=== PATIENT | male | born 1945 | race Caucasian/White ===

== ENCOUNTER → 2019-04-29 | Outpatient (CLI) | payer MEDICARE, OTHER ==
--- NOTE | 2019-04-29 11:28 | Diagnostic Imaging Report ---
CLINICAL INDICATION: Patient with memory loss and confusion. EXAM: Axial CT scan of the brain performed without IV contrast. COMPARISON: None. FINDINGS: There is no evidence of acute cerebral infarct, intracranial hemorrhage, or gross mass effect. The brain parenchymal volume appears appropriate for patient's age. There are subtle patchy areas of low-attenuation white matter changes involving both cerebral hemispheres, likely representing chronic small vessel ischemic disease. There is normal cedillo-white matter distinction. There is no significant midline shift or herniation. There is no evidence of hydrocephalus. The basal cisterns are unremarkable. The skull, extracranial soft tissue, and orbits are unremarkable. There is consolidation involving the right maxillary sinus. There is bony thickening and sclerosis of the right maxillary sinus likely from chronic sinusitis changes. There is mild ethmoid sinus mucosal thickening. Temporal bones show no significant abnormality. IMPRESSION: 1: There is consolidation of the right maxillary sinus with chronic sinusitis bony changes. There is mild ethmoid sinus mucosal thickening. 2: Otherwise, unremarkable CT scan of the brain for age. Dictated by: Dictated on workstation # [id number]
== END ==
LOC: RAD 11:06
PROVIDERS: ATTEND Family Medicine
DX: J32.8 Other chronic sinusitis (principal); R41.0 Disorientation, unspecified
CPT/HCPCS: 70450

== ENCOUNTER → 2020-09-14 | Outpatient (CLI) | payer MEDICARE, OTHER ==
[2020-09-14 08:40] LABS: BILIRUBIN,URINE NEGATIVE (NEGATIVE); CLARITY,URINE CLEAR; COLOR,URINE YELLOW; GLUCOSE, URINE (UA) NEGATIVE (NEGATIVE); KETONES,URINE NEGATIVE (NEGATIVE); LEUKOCYTE ESTERASE ,URINE NEGATIVE (NEGATIVE); NITRITE,URINE NEGATIVE (NEGATIVE); PROTEIN,URINE NEGATIVE (NEGATIVE)
[2020-09-14 08:47] LABS: HEMOGLOBIN 13.3 g/dL (13.3-17.7); MEAN PLATELET VOLUME 10.8 fL (9.0-12.2); WHITE BLOOD COUNT 4.6 10^3/uL (4.3-11.0)
[2020-09-14 08:50] LABS: AMORPHOUS SEDIMENT,UR FEW AMOR URATES /LPF; BACTERIA,URINE TRACE /HPF; RBC,URINE RARE /HPF; WBC,URINE RARE /HPF
[2020-09-14 09:10] LABS: ALANINE AMINOTRANSFERASE 16 U/L (0-55); ALKALINE PHOSPHATASE 85 U/L (40-136); BILIRUBIN,TOTAL 0.6 MG/DL (0.1-1.0); BUN/CREATININE RATIO 13; CALCIUM 9.2 MG/DL (8.5-10.1); CARBON DIOXIDE 27 MMOL/L (21-32); CHLORIDE 105 MMOL/L (98-107); CHOLESTEROL 169 MG/DL (< 200); CREATININE SERUM 0.88 MG/DL (0.60-1.30); GFR ESTIMATED > 60; GLUCOSE 96 MG/DL (70-105); HDL CHOLESTEROL 37 MG/DL (40-60); POTASSIUM 3.9 MMOL/L (3.6-5.0); SODIUM 143 MMOL/L (135-145); TOTAL PROTEIN 7.1 GM/DL (6.4-8.2); TRIGLYCERIDES 83 MG/DL (<150); VLDL CHOLESTEROL 17 MG/DL (5-40)
== END ==
LOC: LAB 08:18
PROVIDERS: ATTEND Family Medicine
DX: I10 Essential (primary) hypertension (principal); R35.0 Frequency of micturition
CPT/HCPCS: 36415; 80053; 80061; 81000; 85027

== ENCOUNTER → 2020-09-20 | Outpatient (CLI) | payer MEDICARE, OTHER ==
--- NOTE | 2020-09-20 11:14 | Diagnostic Imaging Report ---
PROCEDURE: MRI lumbar spine. TECHNIQUE: Multiplanar, multisequence MRI of the lumbar spine was performed without contrast. INDICATION: Right and left leg pain and low back pain. No prior studies are available for comparison. Curvature and alignment of the lumbar spine is normal. There is significant compression fracture deformity involving the L1 vertebral body, which is near vertebral plana. This does show diffuse low signal on T1-weighted images with some mixed increased and decreased signal on the T2-weighted images. It is likely acute/subacute. Remaining lumbar vertebrae demonstrate fairly normal stature although the L2 vertebrae do show some mild superior and inferior endplate concavity which may represent old compressions. There is no retropulsion. There is generalized disc desiccation compatible with degenerative disc disease. Conus is unremarkable T12-L1 level. T12-L1: Central canal is widely patent. Neural foramina appears to be narrowed on the left. Right neural foramen is patent. L1-T2: There is ligament thickening and facet changes. Central canal is patent. There is moderate bilateral neural foraminal stenosis. L2-L3: Central canal is patent. There is some ligamentous thickening and facet changes. Bilateral lateral recesses are narrowed. There is moderate bilateral neural foraminal stenosis. L3-L4: Ligament thickening and facet changes with broad-based disc/osteophyte complex flattens the ventral thecal sac. There is moderate trefoil narrowing of the canal. There is significant bilateral lateral recess stenosis as well as significant bilateral neural foraminal stenosis. L4-L5: Broad-based disc/osteophyte complex flattens the ventral thecal sac. Central canal is patent but there is significant narrowing of the lateral recesses bilaterally. There is significant narrowing of bilateral neural foramina. L5-S1: Broad-based disc/osteophyte complex narrows lateral recesses. Central canal is patent. There is moderate bilateral neural foraminal stenosis. 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 IMPRESSION: 1. Findings consistent with acute compression fracture deformity L1 vertebral body which is near vertebral plana. No significant retropulsion is seen. There is a chronic deformity involving L2. 2. Multilevel lumbar spondylosis with multilevel central canal, lateral recess and neural foraminal stenosis. Dictated by: Dictated on workstation # [id number]
== END ==
LOC: RAD 10:15
PROVIDERS: ATTEND Family Medicine
DX: M48.56XA Collapsed vertebra, not elsewhere classified, lumbar region, initial encounter for fracture (principal); M47.816 Spondylosis without myelopathy or radiculopathy, lumbar region; M48.061 Spinal stenosis, lumbar region without neurogenic claudication
CPT/HCPCS: 72148

== ENCOUNTER → 2021-01-26 | Outpatient (CLI) | payer MEDICARE, OTHER | LOC: CARD 14:30 | PROVIDERS: ATTEND Family Medicine | DX: I35.8 Other nonrheumatic aortic valve disorders (principal) | CPT/HCPCS: 93306 ==

== ENCOUNTER 2021-10-11 09:21 | Inpatient (IN) | payer MEDICARE, OTHER ==
[~2021-10-11] VITALS: Ht 177 cm; Wt 88.9 kg
--- NOTE | 2021-10-11 09:41 | ED Cough/URI ---
General Chief Complaint: Fever-Adult/Adol Stated Complaint: FEVER Source: patient Exam Limitations: no limitations History of Present Illness Date Seen by Provider: Oct 11, 2021 Time Seen by Provider: 09:20 Initial Comments Patient to ER by EMS from home with chief complaint that he slid out of bed according to his . He did not strike his head or fall. He is not on blood thinners. He has a history of Alzheimer's and his found him to have a fever so she summonsed EMS because he was too weak to get back up in the bed. EMS remarks he had a tympanic membrane temperature of 103 degrees. His blood sugar is 107. He has a history of diabetes. He denies a cough but has loose rattly breath sounds. He denies dysuria pain nausea vomiting or shortness of air. He is largely noncontributory to medical history but does answer question s. Allergies and Home Medications Allergies Coded Allergies: No Known Drug Allergies (Unverified , 10/11/21) Patient Home Medication List Home Medication List Reviewed: Yes Review of Systems Review of Systems Constitutional: No chills, No diaphoresis EENTM: No ear discharge, No ear pain Respiratory: No cough, No phlegm, No short of breath Cardiovascular: No chest pain, No palpitations Gastrointestinal: No abdominal pain, No nausea, No vomiting Genitourinary: No discharge, No dysuria Musculoskeletal: No back pain, No joint pain All Other Systems Reviewed Negative Unless Noted: Yes Past Vsguvll-Pkgmtp-Uyjopy Hx Patient Social History Tobacco Use?: No Use of E-Cig and/or Vaping dev: No Physical Exam Vital Signs - First Documented 10/11/21 10/11/21 09:29 11:38 Temp 38.8 Pulse 109 Resp 24 B/P (MAP) 167/72 (103) Pulse Ox 97 O2 Delivery Room Air O2 Flow Rate 2.00 Capillary Refill : Height: '" Weight: lbs. oz. kg; BMI Method: General Appearance: WD/WN, mild distress Eyes: Bilateral Eye Normal Inspection, Bilateral Eye PERRL, Bilateral Eye EOMI HEENT: PERRL/EOMI, normal ENT inspection, TMs normal; No pharynx normal (Mildly dry oral mucosa) Neck: non-tender, full range of motion, supple, normal inspection Respiratory: no respiratory distress (Oxygen saturation 98% on room air.); No rales; rhonchi (Mild to moderate bilateral); No wheezing Cardiovascular: normal peripheral pulses, regular rate, rhythm Gastrointestinal: normal bowel sounds, non tender Extremities: normal inspection, normal capillary refill Neurologic/Psychiatric: alert, normal mood/affect, oriented x 3 Skin: normal color, warm/dry Focused Exam Lactate Level 10/11/21 09:52: Lactic Acid Level 1.41 Lactic Acid Level Laboratory Tests Test 10/11/21 09:52 Lactic Acid Level 1.41 MMOL/L (0.50-2.00) Progress/Results/Core Measures Suspected Sepsis SIRS Temperature: Pulse: Respiratory Rate: Laboratory Tests 10/11/21 09:52: White Blood Count 3.7L Blood Pressure / Mean: 10/11/21 09:52: Lactic Acid Level 1.41 Laboratory Tests 10/11/21 09:52: Creatinine 1.06, Platelet Count 80L, Total Bilirubin 0.9 10/11/21 11:00: INR Comment 1.1 Results/Orders Lab Results Laboratory Tests Test 10/11/21 09:52 10/11/21 11:00 10/11/21 11:35 10/11/21 11:50 Range/Units White Blood Count 3.7 L 4.3-11.0 10^3/uL Red Blood Count 3.75 L 4.30-5.52 10^6/uL Hemoglobin 12.5 L 13.3-17.7 g/dL Hematocrit 37 L 40-54 % Mean Corpuscular Volume 100 H 80-99 fL Mean Corpuscular Hemoglobin 33 25-34 pg Mean Corpuscular Hemoglobin Concent 34 32-36 g/dL Red Cell Distribution Width 13.6 10.0-14.5 % Platelet Count 80 L 130-400 10^3/uL Mean Platelet Volume 12.1 9.0-12.2 fL Immature Granulocyte % (Auto) 1 % Neutrophils (%) (Auto) 60 42-75 % Lymphocytes (%) (Auto) 9 L 12-44 % Monocytes (%) (Auto) 30 H 0-12 % Eosinophils (%) (Auto) 0 0-10 % Basophils (%) (Auto) 0 0-10 % Neutrophils # (Auto) 2.3 1.8-7.8 10^3/uL Lymphocytes # (Auto) 0.3 L 1.0-4.0 10^3/uL Monocytes # (Auto) 1.1 H 0.0-1.0 10^3/uL Eosinophils # (Auto) 0.0 0.0-0.3 10^3/uL Basophils # (Auto) 0.0 0.0-0.1 10^3/uL Immature Granulocyte # (Auto) 0.0 0.0-0.1 10^3/uL Neutrophils % (Manual) 36 % Lymphocytes % (Manual) 13 % Monocytes % (Manual) 29 % Band Neutrophils 22 % Clumped Platelets NONE Percent Immature Platelet Fraction 8.4 H 0.0-7.6 % Blood Morphology Comment NORMAL Sodium Level 139 135-145 MMOL/L Potassium Level 3.8 3.6-5.0 MMOL/L Chloride Level 106 98-107 MMOL/L Carbon Dioxide Level 21 21-32 MMOL/L Anion Gap 12 5-14 MMOL/L Blood Urea Nitrogen 23 H 7-18 MG/DL Creatinine 1.06 0.60-1.30 MG/DL Estimat Glomerular Filtration Rate 74 BUN/Creatinine Ratio 22 Glucose Level 98 70-105 MG/DL Lactic Acid Level 1.41 0.50-2.00 MMOL/L Calcium Level 8.5 8.5-10.1 MG/DL Corrected Calcium 8.7 8.5-10.1 MG/DL Total Bilirubin 0.9 0.1-1.0 MG/DL Aspartate Amino Transf (AST/SGOT) 42 H 5-34 U/L Alanine Aminotransferase (ALT/SGPT) 23 0-55 U/L Alkaline Phosphatase 49 40-136 U/L B-Type Natriuretic Peptide 19.1 <100.0 PG/ML Total Protein 6.9 6.4-8.2 GM/DL Albumin 3.7 3.2-4.5 GM/DL Influenza Type A (RT-PCR) Detected H Not Detecte Influenza Type B (RT-PCR) Not Detected Not Detecte SARS-CoV-2 RNA (RT-PCR) Not Detected Not Detecte Prothrombin Time 15.0 H 12.2-14.7 SEC INR Comment 1.1 0.8-1.4 Activated Partial Thromboplast Time 40 H 24-35 SEC Urine Color YELLOW Urine Clarity CLEAR Urine pH 6.0 5-9 Urine Specific [place] >=1.030 1.016-1.022 Urine Protein 1+ H NEGATIVE Urine Glucose (UA) NEGATIVE NEGATIVE Urine Ketones 1+ H NEGATIVE Urine Nitrite NEGATIVE NEGATIVE Urine Bilirubin NEGATIVE NEGATIVE Urine Urobilinogen 0.2 < = 1.0 MG/DL Urine Leukocyte Esterase NEGATIVE NEGATIVE Urine RBC (Auto) 3+ H NEGATIVE Urine RBC 2-5 H /HPF Urine WBC 0-2 /HPF Urine Crystals PRESENT H /LPF Urine Amorphous Sediment LARGE FADI URATES H /LPF Urine Bacteria NEGATIVE /HPF Urine Casts NONE /LPF Urine Mucus SMALL H /LPF Urine Culture Indicated NO Blood Gas Puncture Site LEFT RADIAL Blood Gas Patient Temperature 36.8 Arterial Blood pH 7.40 7.37-7.43 Arterial Blood Partial Pressure CO2 36 35-45 MMHG Arterial Blood Partial Pressure O2 61 L 79-93 MMHG Arterial Blood HCO3 22 L 23-27 MMOL/L Arterial Blood Total CO2 22.7 21.0-31.0 MMOL/L Arterial Blood Oxygen Saturation 92 L 94-100 % Arterial Blood Base Excess -2.5 -2.5-2.5 MMOL/L Devin Test POSITIVE Blood Gas Ventilator Setting NO Blood Gas Inspired Oxygen N/A My Orders Orders - LESLIE SABA Ed Iv/Invasive Line Start (10/11/21 09:33) Ns Iv 1000 Ml (Sodium Chloride 0.9%) (10/11/21 09:45) Cbc With Automated Diff (10/11/21:33) Comprehensive Metabolic Panel (10/11/21:33) Blood Culture (10/11/21:33) Sputum Culture (10/11/21:33) Urinalysis (10/11/21:33) Urine Culture (10/11/21:33) Protime With Inr (10/11/21:33) Partial Thromboplastin Time (10/11/21:33) Chest 1 View, Ap/Pa Only (10/11/21:33) Acetaminophen Tablet (Tylenol Tablet) (10/11/21 09:45) Ed Iv/Invasive Line Start (10/11/21:33) Ed Iv/Invasive Line Start (10/11/21:33) Vital Signs Adult Sepsis Patie Q15M (10/11/21 09:33) O2 (10/11/21:33) Remove Rings In Anticipation O (10/11/21:33) Lactic Acid Analyzer (2/17/22 09:33) Influenza A And B By Pcr (10/11/21 09:33) Ns Iv 1000 Ml (Sodium Chloride 0.9%) (10/11/21 09:45) Cefepime Injection (Maxipime Injection) (10/11/21 09:45) Vancomycin Injection (Vancomycin Injecti (10/11/21 09:45) Covid 19 Inhouse Test (10/11/21 09:33) Manual Differential (10/11/21 09:52) Vancomycin Injection (Vancomycin Injecti (10/11/21 10:30) Bnp Lety (10/11/21 11:04) Ed Iv/Invasive Line Start (10/11/21 11:04) Ns Iv 1000 Ml (Sodium Chloride 0.9%) (10/11/21 11:15) Arterial Blood Gas (10/11/21 11:53) Medications Given in ED Current Medications Medications Dose Ordered Sig/Marita Route Start Time Stop Time Status Last Admin Dose Admin Acetaminophen 1,000 mg ONCE PRN PO 10/11/21 09:45 10/11/21 09:52 DC 10/11/21 09:52 1,000 MG Cefepime HCl 1000 mg/Sodium Chloride 50 ml @ 100 mls/hr ONCE ONCE IV 10/11/21 09:45 10/11/21 10:14 DC 10/11/21 10:50 100 MLS/HR Vital Signs/I&O 10/11/21 10/11/21 10/11/21 10/11/21 09:29 09:29 09:52 11:38 Temp 38.8 38.8 Pulse 109 Resp 24 B/P (MAP) 167/72 (103) Pulse Ox 97 97 O2 Delivery Room Air Room Air Nasal Cannula O2 Flow Rate 2.00 Capillary Refill : Progress Note #1: Time: 09:41 Progress Note Septic work-up, 2 L is greater than 20 mL/kg based on an estimated body weight of 180 pounds. Cefepime and vancomycin. Pneumonia versus UTI versus?. Covid and influenza swab Progress Note #2: Time: 11:18 Progress Note Influenza A. Oxygen 2 L for hypoxia initiated. Patient has soft blood pressures with systolics in the upper 80s low 90s so 3rd L for 30 mL/kg were initiated. We did clarify CODE STATUS is a full code and the is okay with intubation if indicated. Diagnostic Imaging Diagonstic Imaging: Xray Plain Films/CT/US/NM/MRI: chest Comments [facility] [place], [place] NAME: JEREMIAS BECK [facility] REC#: [id number] PT STATUS: REG ER : 1945 PHYSICIAN: LESLIE SABA MD ADMIT DATE: 10/11/21/ER Draft Date of Exam:10/11/21 CHEST 1 VIEW, AP/PA ONLY INDICATION: Cough FINDINGS: The lungs are clear. There is no failure, effusion or pneumothorax. IMPRESSION: No acute appearing abnormality. Dictated on workstation # [id number] Dict: 10/11/21 1016 Trans: 10/11/21 1017 [facility] [id number] Interpreted by: HOLLIE VICTOR Electronically signed by: Reviewed: Reviewed by Me Departure Communication (Admissions) Time/Spoke to Admitting Phy: 11:[address] Chaney and he agrees to admit the patient to stepdown. Impression Primary Impression: Influenza A Additional Impression: Acute respiratory failure with hypoxemia Disposition: ADMITTED INPATIENT Condition: Stable Admissions Decision to Admit Reason: Admit from ER (General) Decision to Admit/Date: Oct 11, 2021 Time/Decision to Admit Time: 11:19 Departure-Patient Inst. Referrals: YUSUF DISLA DO (PCP/Family) Primary Care Physician LESLIE SABA Oct 11, 2021 09:41
[2021-10-11] MEDS ORDERED: VANCOMYCIN INJECTION 1,750 MG in NS IV 500 ML 500 ML IV ONE (09:45)
[2021-10-11] MEDS ORDERED: ACETAMINOPHEN 500 MG TAB (TYLENOL) PO PRN (09:45)
[2021-10-11] MEDS ORDERED: NS IV 1000 ML 1,000 ML IV SCH ×4 (09:45→13:30)
[2021-10-11] MEDS ORDERED: CEFEPIME INJECTION 1,000 MG in NS (IVPB) 50 ML IV ONE (09:45)
[2021-10-11 10:07] LABS: BASOPHILS % (AUTO) 0 % (0-10); EOSINOPHILS % (AUTO) 0 % (0-10); MEAN CORPUSCULAR VOLUME 100 fL (80-99)
[2021-10-11 10:08] LABS: HEMATOCRIT 37 % (40-54); HEMOGLOBIN 12.5 g/dL (13.3-17.7); LYMPHOCYTES # (AUTO) 0.3 10^3/uL (1.0-4.0); LYMPHOCYTES % (AUTO) 9 % (12-44); MEAN CORPUSCULAR HEMOGLOBIN 33 pg (25-34); MEAN CORPUSCULAR HGB CONC 34 g/dL (32-36); MEAN PLATELET VOLUME 12.1 fL (9.0-12.2); MONOCYTES # (AUTO) 1.1 10^3/uL (0.0-1.0); MONOCYTES % (AUTO) 30 % (0-12); NEUTROPHILS # (AUTO) 2.3 10^3/uL (1.8-7.8); NEUTROPHILS % (AUTO) 60 % (42-75); PLATELET COUNT 80 10^3/uL (130-400); WHITE BLOOD COUNT 3.7 10^3/uL (4.3-11.0)
--- NOTE | 2021-10-11 10:17 | Diagnostic Imaging Report ---
INDICATION: Cough FINDINGS: The lungs are clear. There is no failure, effusion or pneumothorax. IMPRESSION: No acute appearing abnormality. Dictated by: Dictated on workstation # [id number]
[2021-10-11 10:27] LABS: ALBUMIN 3.7 GM/DL (3.2-4.5); POTASSIUM 3.8 MMOL/L (3.6-5.0)
[2021-10-11 10:29] LABS: CALCIUM 8.5 MG/DL (8.5-10.1)
[2021-10-11 10:30] LABS: TOTAL PROTEIN 6.9 GM/DL (6.4-8.2)
[2021-10-11] MEDS ORDERED: VANCOMYCIN INJECTION 1,750 MG in NS IV 500 ML 500 ML IV NR (10:30)
[2021-10-11 10:32] LABS: BILIRUBIN,TOTAL 0.9 MG/DL (0.1-1.0)
[2021-10-11 10:34] LABS: CREATININE SERUM 1.06 MG/DL (0.60-1.30)
[2021-10-11 10:49] LABS: BAND NEUTROPHILS 22 %; LYMPHOCYTES % (MANUAL) 13 %; MONOCYTES % (MANUAL) 29 %; NEUTROPHILS % (MANUAL) 36 %; RBC MORPH NORMAL
[2021-10-11 11:22] LABS: INR 1.1 (0.8-1.4)
[2021-10-11 11:44] LABS: BILIRUBIN,URINE NEGATIVE (NEGATIVE); CLARITY,URINE CLEAR; COLOR,URINE YELLOW; GLUCOSE, URINE (UA) NEGATIVE (NEGATIVE); KETONES,URINE 1+ (NEGATIVE); LEUKOCYTE ESTERASE ,URINE NEGATIVE (NEGATIVE); NITRITE,URINE NEGATIVE (NEGATIVE); PROTEIN,URINE 1+ (NEGATIVE)
[2021-10-11 12:01] LABS: AMORPHOUS SEDIMENT,UR LARGE AMOR URATES /LPF; BACTERIA,URINE NEGATIVE /HPF; WBC,URINE 0-2 /HPF
[2021-10-11 12:03] LABS: ABG BASE EXCESS -2.5 MMOL/L (-2.5-2.5); ABG OXYGEN SATURATION 92 % (94-100); ABG PCO2 36 MMHG (35-45); ABG PO2 61 MMHG (79-93); ABG TCO2 22.7 MMOL/L (21.0-31.0)
[2021-10-11 12:07] LABS: ALLENS TEST POSITIVE
[2021-10-11 12:08] LABS: PATIENT TEMP 36.8; VENTILATOR NO
[2021-10-11] MEDS ORDERED: LACTATED RINGERS 1,000 ML IV ONE (13:10)
[2021-10-11] MEDS ORDERED: VASOPRESSIN INJECTION 20 UNIT in NS (IVPB) 100 ML IV SCH (13:30)
[2021-10-11] MEDS ORDERED: NOREPINEPHRINE 8 MG/250 ML 250 ML IV SCH (13:30)
[2021-10-11] MEDS ORDERED: ACETAMINOPHEN 325 MG TABLET PO PRN (13:30)
[2021-10-11] MEDS ORDERED: EPINEPHrine 1 MG INJECTION 4 MG in NS (IVPB) 248 ML IV SCH (13:30)
[2021-10-11] MEDS ORDERED: ONDANSETRON 4 MG/2 ML (SDV) Z0FRAN IV PRN (13:30)
[2021-10-11] MEDS ORDERED: LACTATED RINGERS 1,000 ML IV SCH (13:30)
[2021-10-11 13:32] VITALS: BP 136/72
[2021-10-11] MEDS ORDERED: NS IV ONE (13:45)
[2021-10-11] MEDS ORDERED: DONE10TA41 PO (13:49)
[2021-10-11] MEDS ORDERED: LISI20TA26 PO (13:49)
[2021-10-11] MEDS ORDERED: MELO15TA39 PO (13:49)
[2021-10-11] MEDS ORDERED: OSEL75CA15 PO (13:49)
[2021-10-11] MEDS ORDERED: AMLO-251 PO (13:50)
[2021-10-11] MEDS ORDERED: LORA10TA7 PO (13:50)
[2021-10-11] MEDS ORDERED: MEMA10TA57 PO (13:51)
[2021-10-11 14:57] VITALS: BP 136/72
[2021-10-11] MEDS ORDERED: VANCOMYCIN INJECTION 0.1 MG in NS (IVPB) 250 ML IV SCH (15:00)
[2021-10-11] MEDS ORDERED: RT-ALBUTEROL SULF 2.5 MG/3 ML PRE-MIX VIAL INH PRN (15:15)
[2021-10-11] MEDS ORDERED: inSUlin ASPART (NovoLOG) 1 UNIT/0.01 ML (CHARGE PER UNIT) SC SCH (16:00)
[2021-10-11] MEDS: OSELTAMIVIR 75 MG (TAMIFLU) CAPSULE PO SCH ×2 (16:08→20:52)
[2021-10-11] MEDS: CEFEPIME INJECTION 1,000 MG in NS (IVPB) 50 ML IV SCH ×2 (16:09→20:52)
[2021-10-11] MEDS ORDERED: MELATONIN 3 MG TABLET PO PRN (16:15)
[2021-10-11] MEDS ORDERED: ANTACID SUSP 30 ML UDC (MYLANTA) PO PRN (16:15)
[2021-10-11] MEDS ORDERED: polyethylene glycoL POWDER 17 GM (MIRALAX) PACK PO PRN (16:15)
[2021-10-11] MEDS ORDERED: hydrALAZINE (APESOLINE) 20 MG/ML VIAL IV PRN (16:15)
[2021-10-11 16:33] VITALS: BP 128/57
[2021-10-11] MEDS: ENOXAPARIN 40 MG/0.4 ML (LOVENOX) SYR SC SCH (17:28)
[2021-10-11] MEDS: ACETAMINOPHEN 325 MG TABLET PO PRN (17:29)
[2021-10-11] MEDS: NICOTINE 21 MG (NICODERM) PATCH TD SCH (17:45)
[2021-10-11] MEDS: NS IV 1000 ML 1,000 ML IV SCH (18:33)
[2021-10-11 20:00] VITALS: BP 124/60
[2021-10-11] MEDS: DOCUSATE SODIUM 100 MG (COLACE) CAP PO SCH (20:52)
[2021-10-11] MEDS: MEMANTINE 10 MG (NAMENDA) TABLET PO SCH (20:52)
[2021-10-11] MEDS: DONEPEZIL 10 MG (ARICEPT) TAB PO SCH (20:52)
[2021-10-11] MEDS: VANCOMYCIN 1250 MG/NS 250 ML IVPB IV SCH ×2 (22:08)
[2021-10-12] VITALS (9 sets, daily range): BP systolic 118–147; BP diastolic 49–73
[2021-10-12] MEDS: CEFEPIME INJECTION 1,000 MG in NS (IVPB) 50 ML IV SCH ×4 (02:45→20:26)
[2021-10-12] MEDS: ACETAMINOPHEN 325 MG TABLET PO PRN ×2 (02:46→20:24)
[2021-10-12 05:14] LABS: BASOPHILS % (AUTO) 0 % (0-10); EOSINOPHILS % (AUTO) 0 % (0-10); HEMATOCRIT 33 % (40-54); HEMOGLOBIN 10.6 g/dL (13.3-17.7); LYMPHOCYTES # (AUTO) 0.8 10^3/uL (1.0-4.0); LYMPHOCYTES % (AUTO) 12 % (12-44); MEAN CORPUSCULAR HEMOGLOBIN 33 pg (25-34); MEAN CORPUSCULAR HGB CONC 33 g/dL (32-36); MEAN CORPUSCULAR VOLUME 101 fL (80-99); MEAN PLATELET VOLUME 11.9 fL (9.0-12.2); MONOCYTES # (AUTO) 1.1 10^3/uL (0.0-1.0); MONOCYTES % (AUTO) 17 % (0-12); NEUTROPHILS # (AUTO) 4.5 10^3/uL (1.8-7.8); NEUTROPHILS % (AUTO) 69 % (42-75); PLATELET COUNT 65 10^3/uL (130-400); WHITE BLOOD COUNT 6.5 10^3/uL (4.3-11.0)
[2021-10-12 05:23] LABS: POTASSIUM 3.4 MMOL/L (3.6-5.0)
[2021-10-12 05:24] LABS: BAND NEUTROPHILS 16 %; CALCIUM 7.7 MG/DL (8.5-10.1); LYMPHOCYTES % (MANUAL) 7 %; MONOCYTES % (MANUAL) 10 %; NEUTROPHILS % (MANUAL) 67 %; RBC MORPH NORMAL
[2021-10-12 05:28] LABS: CREATININE SERUM 0.73 MG/DL (0.60-1.30)
[2021-10-12] MEDS: NS IV 1000 ML 1,000 ML IV SCH ×3 (06:03→20:52)
--- NOTE | 2021-10-12 07:20 | Diagnostic Imaging Report ---
INDICATION: Sepsis COMPARISON: 10/11/2021 FINDINGS: Single view the chest demonstrates cardiac enlargement with stable central vascular congestion. There is new dependent atelectasis. There is no pneumothorax or large effusion. IMPRESSION: 1. Cardiac enlargement with stable central vascular congestion. 2. New basilar atelectasis. Dictated by: Dictated on workstation # [id number]
[2021-10-12] MEDS: NICOTINE 21 MG (NICODERM) PATCH TD SCH (07:59)
[2021-10-12] MEDS: lisINopril 20 MG (PRINIVIL) TABLET PO SCH (08:00)
[2021-10-12] MEDS: MEMANTINE 10 MG (NAMENDA) TABLET PO SCH ×2 (08:00→20:25)
[2021-10-12] MEDS: amLODIPine 10 MG (NORVASC) TAB PO SCH (08:00)
[2021-10-12] MEDS: DOCUSATE SODIUM 100 MG (COLACE) CAP PO SCH ×2 (08:00→20:24)
[2021-10-12] MEDS: LORATADINE (CLARITIN) 10 MG TAB PO SCH (08:00)
[2021-10-12] MEDS: OSELTAMIVIR 75 MG (TAMIFLU) CAPSULE PO SCH ×2 (08:01→20:25)
[2021-10-12] MEDS: VANCOMYCIN 1250 MG/NS 250 ML IVPB IV SCH ×4 (11:12→23:56)
--- NOTE | 2021-10-12 11:12 | Occupational Therapy Eval ---
OT Evaluation-General/PLF Medical Diagnosis Admission Date Oct 11, 2021 at 11:20 Medical Diagnosis: Influenza A Onset Date: Oct 11, 2021 Therapy Diagnosis Therapy Diagnosis: decreased ADL status, confusion Precautions Precautions/Isolations: Droplet Isolation, Fall Prevention Referral Physician: Kade Ontiveros Reason: Evaluation/Treatment Medical History Current History EMS from home c/o pt slid out of bed, fever and cough Social History Home: Single Level Current Living Status: Spouse ADL-Prior Level of Function SCALE: Activities may be completed with or without assistive devices. 1-Fnboukjptq-bcmqffn completes the activity by him/herself with no assistance from a helper. 5-Set-up or Clean-up Assistance-helper sets up or cleans up; patient completes activity. Hankamer assists only prior to or following the activity. 4-Supervision or Touching Assistance-helper provides verbal cues and/or touching/steadying and/or contact guard assistance as patient completes activity. Assistance may be provided throughout the activity or intermittently. 3-Partial/Moderate Assistance-helper does LESS THAN HALF the effort. Hankamer lifts, holds or supports trunk or limbs, but provides less than half the effort. 2-Substantial/Maximal Assistance-helper does MORE THAN HALF the effort. Hankamer lifts or holds trunk or limbs and provides more than half the effort. 4-Lbyiqmfab-lqnwti does ALL the effort. Patient does none of the effort to complete the activity. Or, the assistance of 2 or more helpers is required for the patient to complete the activity. If activity was not attempted, code reason: 7-Patient Refused. 9-Not Applicable-not attempted and the patient did not perform the activity before the current illness, exacerbation or injury. 10-Not Attempted due to Environmental Limitations-(lack of equipment, weather restraints, etc.). 88-Not Attempted due to Medical Conditions or Safety Concerns. ADL PLOF Comments Pt reports IND with ADLs and functional mobility at PLOF, no AD/AE Self Care: Independent Functional Cognition: Independent OT Current Status Subjective Pt in bed, indicates he is seeing dogs in his room. His indicates pt has also been seeing horses Mental Status/Objective Patient Orientation: Person, Confused Attachments: IV, Telemetry Current Hand Dominance: Right Upper Extremity ROM WFL, BUE shoulder flexion to approx 160 degrees Upper Extremity Strength grossly 4/5 ADL-Treatment On/Off Footwear (QC): 4 (SBA, pt able to doff/don gripper socks.) Other Treatments Pt in bed, agreeable to OT tx. Pt and provide information about PLOF and home set up, and pt participates in UE screen. Pt transferred supine to sit EOB, CGA with cues for sequencing. Pt able to doff/don gripper socks, SBA. Pt stood from EOB, unsteady, sitting back on EOB abruptly. OT provided FRAME TENDER, pt then able to stand with FRAME TENDER. Pt took a couple steps to the R towards HOB, cues required for sequencing. Pt sat EOB, then transferred supine with SBA. Post tx, pt in bed, call light in reach and all needs met. Education OT Patient Education: Correct positioning, Energy conservation, Modified ADL techniques, Progress toward Goal/Update tx plan, Purpose of tx/functional activities Teaching Recipient: Patient Teaching Methods: Discussion Response to Teaching: Verbalize Understanding OT Auto Glass Technician Goals Auto Glass Technician Goals Time Frame: Oct 19, 2021 Eating (QC): 6 Oral Hygiene (QC): 6 Toileting Hygiene (QC): 6 Shower/Bathe Self (QC): 6 Upper Body Dressing (QC): 6 Lower Body Dressing (QC): 6 On/Off Footwear (QC): 6 Additional Goals: 1-Demonstrate ADL Tasks, 2-Verbalize Understanding, 3- ImproveStrength/Moy 1=Demonstrate adherence to instructed precautions during ADL tasks. 2=Patient will verbalize/demonstrate understanding of assistive devices/modifications for ADL. 3=Patient will improve strength/tolerance for activity to enable patient to perform ADL's. OT Education/Plan Problem List/Assessment Assessment: Decreased Activ Tolerance, Decreased Safety Aware, Decreased UE St rength, Impaired Cognition, Impaired Funct Balance, Impaired I ADL's, Impaired Self-Care Skills Discharge Recommendations Plan/Recommendations: Continue POC Treatment Plan/Plan of Care Patient would benefit from OT for education, treatment and training to promote independence in ADL's, mobility, safety and/or upper extremity function for ADL's. Plan of Care: ADL Retraining, Functional Mobility, UE Funct Exercise/Act Treatment Duration: Oct 19, 2021 Frequency: 3 times per week (3-5 times per week) Estimated Hrs Per Day: .25 hour per day Agreement: Yes Rehab Potential: Good Time/GCodes Start Time: 10:25 Stop Time: 10:38 Total Time Billed (hr/min): 13 Billed Treatment Time 1, ARIANA MICHAELS OT Oct 12, 2021 11:12
--- NOTE | 2021-10-12 11:28 | Physical Therapy Evaluation ---
PT Evaluation-General Medical Diagnosis Admission Date Oct 11, 2021 at 11:20 Medical Diagnosis: Influenza A Onset Date: Oct 11, 2021 Therapy Diagnosis Therapy Diagnosis: Generalized weakness, gait deficit Precautions Precautions/Isolations: Droplet Isolation, Fall Prevention Referral Physician: Kade Reason for Referral: Evaluation/Treatment Medical History Reviewed History: Yes Social History Home: Single Level Current Living Status: Spouse Entry Into Home: Stairs With Railing PT Steps Into Home: 5 Prior Prior Level of Function SCALE: Activities may be completed with or without assistive devices. 6-Mqtrrcmasn-tewgolj completes the activity by him/herself with no assistance from a helper. 5-Set-up or Clean-up Assistance-helper sets up or cleans up; patient completes activity. [place] assists only prior to or following the activity. 4-Supervision or Touching Assistance-helper provides verbal cues and/or touching/steadying and/or contact guard assistance as patient completes activity. Assistance may be provided throughout the activity or intermittently. 3-Partial/Moderate Assistance-helper does LESS THAN HALF the effort. [place] lifts, holds or supports trunk or limbs, but provides less than half the effort. 2-Substantial/Maximal Assistance-helper does MORE THAN HALF the effort. [place] lifts or holds trunk or limbs and provides more than half the effort. 0-Tghemovus-catmhb does ALL the effort. Patient does none of the effort to complete the activity. Or, the assistance of 2 or more helpers is required for the patient to complete the activity. If activity was not attempted, code reason: 7-Patient Refused. 9-Not Applicable-not attempted and the patient did not perform the activity before the current illness, exacerbation or injury. 10-Not Attempted due to Environmental Limitations-(lack of equipment, weather restraints, etc.). 88-Not Attempted due to Medical Conditions or Safety Concerns. Bed Mobility: 6 Transfers (B,C,W/C): 6 Gait: 6 Stairs: 6 Indoor Mobility (Ambulation): Independent Stairs: Independent Prior Devices Use: None PT Evaluation-Current Subjective Patient lying supine in bed upon PT arrival, agreeable to treatment. Rates pain at 0/10. Patient is moderately confused and is only able to remember his name. Objective Patient Orientation: Person Attachments: IV ROM/Strength ROM Lower Extremities WFLs Strength Lower Extremities Patient demonstrates >3+/5 strength in bilateral LEs, however unable to follow commands to assess accurately. Sensory Vision: Functional Hearing: Functional Hand Dominance: Right Sensation Lower Extremities Unable to assess sensation to light touch accurately as patient says "yes" to being touched even when tactile stimuli not applied. Transfers Roll Left to Right (QC): 3 Sit to Lying (QC): 3 Lying to Sitting/Side of Bed(Q: 3 Sit to Stand (QC): 3 Gait Does the Patient Walk?: Yes Mode of Locomotion: Walk Anticipated Mode of Locomotion: Walk Walk 10 feet (QC): 3 Walk 50 ft with 2 Turns(QC): 3 Distance: 100 Gait Assistive Device: FWW Balance Sitting Static: Fair Sitting Dynamic: Fair Standing Static: Poor Standing Dynamic: Poor Assessment/Needs Patient demonstrates moderate difficulty following commands and requires not only multiple verbal attempts, but multiple tactile cues as well. He appears to demonstrate good LE strength, however due to current cognition, he is unable to perform MMT. Patient performs all bed mobility and transfers with min/mod A. Patient demonstrates minimal impulsive movements especially when attempting to stand up from the bed. Patient ambulates 100 feet with FWW, with min A for safety, control of FWW and balance. Patient ambulates with right lateral movement ~25% of the time. FWW assists with balance, but also causes difficulty as he demonstrates the inability to maneuver the FWW at times. Patient returned to bed post treatment with all needs met, nursing notified, call light in hand, and in the room. Rehab Potential: Fair Equipment Needs Unsure at this time, however FWW if balance does not improve. PT Finishing Technician Goals Finishing Technician Goals PT Finishing Technician Goals Time Frame: Oct 26, 2021 Roll Left & Right (QC): 6 Sit to Lying (QC): 6 Lying-Sitting on Side/Bed(QC): 6 Sit to Stand (QC): 6 Chair/Jdv-pz-Adoex Xfer(QC): 6 Toilet Transfer (QC): 6 Car Transfer (QC): 6 Does the Patient Walk: Yes Walk 10 feet (QC): 5 Walk 50ft with 2 Turns (QC): 5 Walk 150 ft (QC): 5 1 Step (curb) (QC): 4 4 Steps (QC): 4 12 Steps (QC): 4 PT Plan Problem List Problem List: Activity Tolerance, Functional Strength, Safety, Balance, Gait, Transfer, Bed Mobility, ROM Treatment/Plan Treatment Plan: Continue Plan of Care Treatment Plan: Bed Mobility, Education, Functional Activity Moy, Functional Strength, Group Therapy, Gait, Safety, Therapeutic Exercise, Transfers Treatment Duration: Nov 17, 2021 Frequency: 6 times per week Estimated Hrs Per Day: .25 hour per day Safety Risks/Education Patient Education: Gait Training Teaching Recipient: Patient, Family Teaching Methods: Demonstration, Discussion Response to Teaching: Reinforcement Needed Discharge Recommendations Target Placement Post acute placement recommended if improvement does not occur with cognition Time/GCodes Time In: 1041 Time Out: 1110 Total Billed Treatment Time: 29 Total Billed Treatment Visit, Lindsay ASHFORD JOHN A PT Oct 12, 2021 11:28
--- NOTE | 2021-10-12 16:27 | History & Physical-Hospitalist ---
History of Present Illness HPI/Chief Complaint Andrei Jonas is a 76 year old male with PMH dementia, HTN, who presented with weakness. She reports that he was doing well just a couple days ago. He started having fevers. He tried to get out of bed but slid down to the floor. She had to call EMS at that time. He reports shortness of breath and cough. He denies chest pain. He denies nausea, vomiting, diarrhea, and abdominal pain. Source: patient, family Exam Limitations: no limitations Date Seen 10/12/21 Time Seen by a Provider: 09:30 Attending Physician Brock Flaherty MD PCP Stevie Collado DO Referring Physician Date of Admission Oct 11, 2021 at 11:20 Home Medications & Allergies Home Medications Reviewed patient Home Medication Reconciliation performed by pharmacy medication reconciliations retail maintenance technician and/or nursing. Patients Allergies have been reviewed. Allergies Allergies Coded Allergies No Known Drug Allergies (Unverified10/11/21) Past Uiqgasi-Bstmtz-Yaqxjc Hx Patient Social History Tobacco Use?: No Smokeless type used: Chew Use of E-Cig and/or Vaping dev: No Substance use?: No Alcohol Use?: Yes Alcohol Frequency: Once in a while Pt feels they are or have been: No Immunizations Up To Date Date of Influenza Vaccine: Jun 10, 2021 First/Initial COVID19 Vaccinat: MAY 2021 Second COVID19 Vaccination Doe: JUNE 2021 Tetanus Booster (TDap): Unknown Current Status Advance Directives: No Communicates: Verbally Primary Language: Tunisian Preferred Spoken Language: Tunisian Is interpretation needed?: Unable to obtain Sensory deficits: Hearing impairment Implanted or Applied Medical D: None Past Medical History Hypertension Dementia Family Medical History No Pertinent Family Hx Review of Systems Constitutional: fever, malaise, weakness EENTM: no symptoms reported Respiratory: cough, short of breath Cardiovascular: no symptoms reported Gastrointestinal: no symptoms reported Genitourinary: no symptoms reported Musculoskeletal: no symptoms reported Skin: no symptoms reported Psychiatric/Neurological: No Symptoms Reported Physical Exam Physical Exam Vital Signs Vital Signs - First Documented 10/11/21 10/11/21 10/11/21 09:29 11:38 14:57 Temp 38.8 Pulse 109 Resp 24 B/P (MAP) 167/72 (103) Pulse Ox 97 O2 Delivery Room Air O2 Flow Rate 2.00 FiO2 21 Capillary Refill : Less Than 3 Seconds Height, Weight, BMI Height: '" Weight: lbs. oz. kg; 28.37 BMI Method: General Appearance: No Apparent Distress, WD/WN HEENT: PERRL/EOMI, Pharynx Normal Neck: Normal Inspection, Supple Respiratory: Lungs Clear, No Respiratory Distress Cardiovascular: Regular Rate, Rhythm, No Edema, No Murmur Gastrointestinal: Normal Bowel Sounds, Non Tender, Soft Extremity: Normal Inspection, No Pedal Edema Neurologic/Psychiatric: Alert, Normal Mood/Affect Skin: Normal Color, Warm/Dry Results Results/Procedures Labs Laboratory Tests 10/11/21 09:52 10/12/21 05:00 Patient resulted labs reviewed. Imaging: Reviewed Imaging Report Assessment/Plan Admission Diagnosis Influenza A Admission Status: Inpatient Order (span 2 midnights) Reason for Inpatient Admission: Sepsis Assessment and Plan Sepsis Influenza A Pneumonia Flu A positive SIRS+ with fever, leukopenia with bandemia, and tachycardia CXR with bibasilar infiltrate Started on Vanc and Cefepime UA negative Blood cultures with no growth Not requiring supplemental oxygen Acute kidney injury IV fluids Pancytopenia Likely due to viral illness Monitor Dementia Delirium Continue home meds Sitter at bedside Reorient as needed Avoid delirium triggers HTN Continue home meds DVT prophylaxis: Lovenox Diagnosis/Problems Diagnosis/Problems (1) Sepsis Status: Acute (2) Influenza A Status: Acute (3) PNA (pneumonia) Status: Acute (4) Dementia Status: Chronic (5) Delirium Status: Acute (6) DHRUV (acute kidney injury) Status: Acute (7) Pancytopenia Status: Acute (8) HTN (hypertension) Status: Chronic BROCK FLAHERTY MD Oct 12, 2021 16:27
[2021-10-12] MEDS: ENOXAPARIN 40 MG/0.4 ML (LOVENOX) SYR SC SCH (18:26)
[2021-10-12] MEDS: DONEPEZIL 10 MG (ARICEPT) TAB PO SCH (20:23)
[2021-10-12] MEDS ORDERED: TROUGH ORDER-PHARMACY XX NR (22:00)
[2021-10-13] MEDS: CEFEPIME INJECTION 1,000 MG in NS (IVPB) 50 ML IV SCH ×2 (02:47→11:25)
[2021-10-13 03:46] VITALS: BP 158/72
[2021-10-13 06:08] LABS: BASOPHILS % (AUTO) 0 % (0-10); EOSINOPHILS % (AUTO) 1 % (0-10); HEMATOCRIT 36 % (40-54); HEMOGLOBIN 11.9 g/dL (13.3-17.7); LYMPHOCYTES # (AUTO) 0.9 10^3/uL (1.0-4.0); LYMPHOCYTES % (AUTO) 26 % (12-44); MEAN CORPUSCULAR HEMOGLOBIN 33 pg (25-34); MEAN CORPUSCULAR HGB CONC 33 g/dL (32-36); MEAN CORPUSCULAR VOLUME 99 fL (80-99); MONOCYTES # (AUTO) 0.5 10^3/uL (0.0-1.0); MONOCYTES % (AUTO) 13 % (0-12); NEUTROPHILS % (AUTO) 57 % (42-75); PLATELET COUNT 70 10^3/uL (130-400); WHITE BLOOD COUNT 3.5 10^3/uL (4.3-11.0)
[2021-10-13 06:16] LABS: POTASSIUM 3.1 MMOL/L (3.6-5.0)
[2021-10-13 06:17] LABS: CALCIUM 8.2 MG/DL (8.5-10.1)
[2021-10-13 06:22] LABS: CREATININE SERUM 0.72 MG/DL (0.60-1.30)
[2021-10-13] MEDS ORDERED: VANCOMYCIN 1 GM/NS 250 ML IVPB IV SCH ×2 (08:00)
[2021-10-13 08:02] VITALS: BP 127/80
[2021-10-13] MEDS: NICOTINE 21 MG (NICODERM) PATCH TD SCH (09:10)
[2021-10-13] MEDS: OSELTAMIVIR 75 MG (TAMIFLU) CAPSULE PO SCH (09:10)
[2021-10-13] MEDS: DOCUSATE SODIUM 100 MG (COLACE) CAP PO SCH ×2 (09:10→20:14)
[2021-10-13] MEDS: amLODIPine 10 MG (NORVASC) TAB PO SCH (09:10)
[2021-10-13] MEDS: LORATADINE (CLARITIN) 10 MG TAB PO SCH (09:10)
[2021-10-13] MEDS: MEMANTINE 10 MG (NAMENDA) TABLET PO SCH ×2 (09:10→20:13)
[2021-10-13] MEDS: lisINopril 20 MG (PRINIVIL) TABLET PO SCH (09:10)
[2021-10-13] MEDS: NICOTINE PATCH REMOVAL TP SCH (09:15)
[2021-10-13] MEDS: NS IV 1000 ML 1,000 ML IV SCH (11:25)
[2021-10-13] MEDS ORDERED: LORazepam INJ 2 MG/ML (ATIVAN) VIAL IVP PRN (11:45)
[2021-10-13] MEDS ORDERED: PIPERACILLIN SODIUM/TAZOBACTAM 4.5 GM in NS (IVPB) 100 ML IV NR (12:00)
[2021-10-13 13:00] VITALS: BP 118/66
[2021-10-13] MEDS ORDERED: LORazepam INJ 2 MG/ML (ATIVAN) VIAL IVP ONE (13:00)
--- NOTE | 2021-10-13 13:26 | Physical Therapy Daily Note ---
PT Daily Note-Current Subjective Patient in bed pre tx, agrees to PT, voices no complaints of pain but also isn't talking much. Appearance Patient in radiology WC post tx going down to CT scan. Mental Status Patient Orientation: Person, Confused Attachments: IV Transfers SCALE: Activities may be completed with or without assistive devices. 7-Ucrjvgzscw-ruhjuno completes the activity by him/herself with no assistance from a helper. 5-Set-up or Clean-up Assistance-helper sets up or cleans up; patient completes activity. [place] assists only prior to or following the activity. 4-Supervision or Touching Assistance-helper provides verbal cues and/or touching/steadying and/or contact guard assistance as patient completes activity. Assistance may be provided throughout the activity or intermittently. 3-Partial/Moderate Assistance-helper does LESS THAN HALF the effort. [place] lifts, holds or supports trunk or limbs, but provides less than half the effort. 2-Substantial/Maximal Assistance-helper does MORE THAN HALF the effort. [place] lifts or holds trunk or limbs and provides more than half the effort. 4-Athjsqrir-rambmn does ALL the effort. Patient does none of the effort to complete the activity. Or, the assistance of 2 or more helpers is required for the patient to complete the activity. If activity was not attempted, code reason: 7-Patient Refused. 9-Not Applicable-not attempted and the patient did not perform the activity before the current illness, exacerbation or injury. 10-Not Attempted due to Environmental Limitations-(lack of equipment, weather restraints, etc.). 88-Not Attempted due to Medical Conditions or Safety Concerns. Roll Left & Right (QC): 1 Lying to Sitting/Side of Bed(Q: 1 Sit to Stand (QC): 2 Chair/Oqx-lx-Kueev Xfer(QC): 2 Patient sits with dependence, very retropulsive, very shaky. His shakiness is almost spasm-like. Patient transfers to with max assist into radiology WCcallie came to get patient just as we were getting up. Treatments bed mobility and transfers Assessment Current Status: Regressing much worse functional mobility PT [facility] Goals Surgical Technologist Goals PT Surgical Technologist Goals Time Frame: Oct 26, 2021 Roll Left & Right (QC): 6 Sit to Lying (QC): 6 Lying-Sitting on Side/Bed(QC): 6 Sit to Stand (QC): 6 Chair/Njq-hu-Fgiir Xfer(QC): 6 Toilet Transfer (QC): 6 Car Transfer (QC): 6 Does the Patient Walk: Yes Walk 10 feet (QC): 5 Walk 50ft with 2 Turns (QC): 5 Walk 150 ft (QC): 5 1 Step (curb) (QC): 4 4 Steps (QC): 4 12 Steps (QC): 4 PT Plan Problem List Problem List: Activity Tolerance, Functional Strength, Safety, Balance, Gait, Transfer, Bed Mobility, ROM Treatment/Plan Treatment Plan: Continue Plan of Care Treatment Plan: Bed Mobility, Education, Functional Activity Moy, Functional Strength, Group Therapy, Gait, Safety, Therapeutic Exercise, Transfers Treatment Duration: Nov 17, 2021 Frequency: 6 times per week Estimated Hrs Per Day: .25 hour per day Safety Risks/Education Patient Education: Transfer Techniques, Correct Positioning, Safety Issues Teaching Recipient: Patient Teaching Methods: Demonstration, Discussion Response to Teaching: Reinforcement Needed Time/GCodes Time In: 1259 Time Out: 1307 Total Billed Treatment Time: 8 Total Billed Treatment 1 visit FA 8' JOSE ESCAMILLA PT Oct 13, 2021 13:26
--- NOTE | 2021-10-13 15:00 | Diagnostic Imaging Report ---
PROCEDURE: CT head without contrast. TECHNIQUE: Multiple contiguous axial images were obtained through the brain without the use of intravenous contrast. Auto Exposure Controls were utilized during the CT exam to meet ALARA standards for radiation dose reduction. INDICATION: Altered mental status Study compared with exam 04/29/2019. FINDINGS: There is a chronic cerebral cortical atrophy stable. There is no hydrocephalus. There is intracranial atherosclerotic vascular calcifications chronic. There is some chronic periventricular white matter disease likely small vessel sequelae unchanged. There are calcifications of the falx and dura. There is occlusion of the right maxillary sinus and opacification of multiple ethmoid air cells greater right than left as well as some membrane disease in the bilateral frontal sinuses. Maxillary disease on the right unchanged. The remaining paranasal sinus disease progressed. No tian air-fluid level. There is no mastoid effusion. The middle ear cavities clear. IMPRESSION: Some chronic senescent changes in the brain. No hemorrhage, edema or acute finding. Progressive paranasal sinus disease as described without air-fluid levels. Dictated by: Dictated on workstation # [id number]
[2021-10-13 16:00] VITALS: BP 135/61
[2021-10-13] MEDS: ENOXAPARIN 40 MG/0.4 ML (LOVENOX) SYR SC SCH (17:03)
--- NOTE | 2021-10-13 17:40 | Progress Note - Hospitalist ---
Subjective HPI/CC On Admission Date Seen by Provider: Oct 13, 2021 Time Seen by Provider: 11:15 Andrei Jonas is a 76 year old male with PMH dementia, HTN, who presented with weakness. She reports that he was doing well just a couple days ago. He started having fevers. He tried to get out of bed but slid down to the floor. She had to call EMS at that time. He reports shortness of breath and cough. He denies chest pain. He denies nausea, vomiting, diarrhea, and abdominal pain. Subjective/Events-last exam He is confused today. He is following commands and moves all extremities. He does not respond consistently verbally. Focused Exam Lactate Level 10/11/21 09:52: Lactic Acid Level 1.41 Objective Exam Vital Signs Vital Signs Date Time Temp Pulse Resp B/P (MAP) Pulse Ox O2 Delivery O2 Flow Rate FiO2 10/13/21 16:00 37.6 73 20 135/61 (85) 97 Room Air 10/13/21 13:00 2.00 10/11/21 14:57 21 Capillary Refill : Less Than 3 Seconds General Appearance: WD/WN, Mild Distress (uncomfortable) Respiratory: Lungs Clear, No Respiratory Distress Cardiovascular: Regular Rate, Rhythm, No Murmur Gastrointestinal: Normal Bowel Sounds, Non Tender, Soft Extremity: Normal Inspection, Non Tender, No Pedal Edema Neurologic/Psychiatric: Alert, No Motor/Sensory Deficits, Disoriented Skin: Normal Color, Warm/Dry Results/Procedures Lab Laboratory Tests 10/13/21 05:30 Patient resulted labs reviewed. Imaging: Reviewed Imaging Report Assessment/Plan Assessment and Plan Assess & Plan/Chief Complaint Sepsis Influenza A Pneumonia Metabolic encephalopathy Flu A positive Stop Tamiflu due to encephalopathy SIRS+ with fever, leukopenia with bandemia, and tachycardia CXR with bibasilar infiltrate Stop Vancomycin, no evidence of MRSA Stop Cefepime due to encephalopathy Transition to Zosyn CT head negative for acute abnormalities Pancytopenia Likely due to viral illness Monitor Dementia Delirium Continue home meds Sitter at bedside Reorient as needed Avoid delirium triggers Stopping Tamiflu and Cefepime, possible culprits HTN Continue home meds DVT prophylaxis: Lovenox Acute kidney injury, resolved Diagnosis/Problems Diagnosis/Problems (1) Sepsis Status: Acute (2) Influenza A Status: Acute (3) PNA (pneumonia) Status: Acute (4) Dementia Status: Chronic (5) Delirium Status: Acute (6) DHRUV (acute kidney injury) Status: Acute (7) Pancytopenia Status: Acute (8) HTN (hypertension) Status: Chronic (9) Acute metabolic encephalopathy Status: Acute BROCK FLAHERTY MD Oct 13, 2021 17:40
[2021-10-13] MEDS ORDERED: PIPERACILLIN SODIUM/TAZOBACTAM 4.5 GM in NS (IVPB) 100 ML IV SCH (18:00)
[2021-10-13] MEDS: DONEPEZIL 10 MG (ARICEPT) TAB PO SCH (20:13)
[2021-10-14] VITALS: BP 133/65
[2021-10-14] MEDS: NS IV 1000 ML 1,000 ML IV SCH (00:31)
[2021-10-14] MEDS: PIPERACILLIN SODIUM/TAZOBACTAM 4.5 GM in NS (IVPB) 100 ML IV SCH ×3 (02:48→17:48)
[2021-10-14] MEDS ORDERED: TROUGH ORDER-PHARMACY XX NR (07:00)
[2021-10-14 07:38] VITALS: BP 133/65
[2021-10-14 07:50] VITALS: BP 150/68
[2021-10-14 08:38] LABS: POTASSIUM 2.8 MMOL/L (3.6-5.0)
[2021-10-14 08:40] LABS: CALCIUM 8.1 MG/DL (8.5-10.1)
[2021-10-14 08:44] LABS: CREATININE SERUM 0.75 MG/DL (0.60-1.30)
[2021-10-14 08:47] LABS: MAGNESIUM 2.3 MG/DL (1.6-2.4)
[2021-10-14 08:54] LABS: BASOPHILS % (AUTO) 1 % (0-10); EOSINOPHILS % (AUTO) 1 % (0-10); HEMATOCRIT 35 % (40-54); HEMOGLOBIN 11.6 g/dL (13.3-17.7); LYMPHOCYTES # (AUTO) 0.7 10^3/uL (1.0-4.0); LYMPHOCYTES % (AUTO) 35 % (12-44); MEAN CORPUSCULAR HEMOGLOBIN 32 pg (25-34); MEAN CORPUSCULAR HGB CONC 33 g/dL (32-36); MEAN CORPUSCULAR VOLUME 98 fL (80-99); MEAN PLATELET VOLUME 11.4 fL (9.0-12.2); MONOCYTES # (AUTO) 0.3 10^3/uL (0.0-1.0); MONOCYTES % (AUTO) 12 % (0-12); NEUTROPHILS % (AUTO) 47 % (42-75); PLATELET COUNT 86 10^3/uL (130-400); WHITE BLOOD COUNT 2.1 10^3/uL (4.3-11.0)
[2021-10-14] MEDS: DOCUSATE SODIUM 100 MG (COLACE) CAP PO SCH ×2 (09:00→19:59)
[2021-10-14] MEDS ORDERED: KCL 20 MEQ TAB (K-DUR) PO ONE ×3 (09:30→13:30)
[2021-10-14] MEDS: POTASSIUM CL 10MEQ/50ML IVPB 50 ML IV SCH (09:30)
[2021-10-14] MEDS: MAGNESIUM 1 GM/100 ML IVPB 100 ML IV SCH (09:31)
[2021-10-14] MEDS: NICOTINE PATCH REMOVAL TP SCH (09:31)
[2021-10-14] MEDS: KCL 20 MEQ TAB (K-DUR) PO SCH (09:31)
[2021-10-14] MEDS: amLODIPine 10 MG (NORVASC) TAB PO SCH (09:32)
[2021-10-14] MEDS: LORATADINE (CLARITIN) 10 MG TAB PO SCH (09:32)
[2021-10-14] MEDS: lisINopril 20 MG (PRINIVIL) TABLET PO SCH (09:32)
[2021-10-14] MEDS: MEMANTINE 10 MG (NAMENDA) TABLET PO SCH ×2 (09:32→19:59)
[2021-10-14] MEDS: NICOTINE 21 MG (NICODERM) PATCH TD SCH (09:34)
--- NOTE | 2021-10-14 13:14 | Progress Note - Hospitalist ---
Subjective HPI/CC On Admission Date Seen by Provider: Oct 14, 2021 Time Seen by Provider: 12:40 Andrei Jonas is a 76 year old male with PMH dementia, HTN, who presented with weakness. She reports that he was doing well just a couple days ago. He started having fevers. He tried to get out of bed but slid down to the floor. She had to call EMS at that time. He reports shortness of breath and cough. He denies chest pain. He denies nausea, vomiting, diarrhea, and abdominal pain. Subjective/Events-last exam He is sitting in his chair. He is doing much better today. He reports back pain from the bed. He has been able to get up to use the bathroom with assistance. His appetite is good. He denies shortness of breath. He denies nausea and vomiting. He has no other complaints or concerns. Objective Exam Vital Signs Vital Signs Date Time Temp Pulse Resp B/P (MAP) Pulse Ox O2 Delivery O2 Flow Rate FiO2 10/14/21 08:31 Room Air 10/14/21 08:00 93 10/14/21 07:50 37.4 74 20 150/68 (95) 10/13/21 19:15 21 10/13/21 13:00 2.00 Capillary Refill : Less Than 3 Seconds General Appearance: No Apparent Distress, WD/WN Respiratory: Lungs Clear, No Respiratory Distress Cardiovascular: Regular Rate, Rhythm, No Murmur Gastrointestinal: Normal Bowel Sounds, Soft Extremity: Normal Inspection, No Pedal Edema Neurologic/Psychiatric: Alert, No Motor/Sensory Deficits, Normal Mood/Affect Skin: Normal Color, Warm/Dry Results/Procedures Lab Laboratory Tests 10/14/21 07:10 10/14/21 08:45 Patient resulted labs reviewed. Imaging: Reviewed Imaging Report Assessment/Plan Assessment and Plan Assess & Plan/Chief Complaint Influenza A Pneumonia Continue Zosyn Pancytopenia Likely due to viral illness Monitor Dementia Delirium Continue home meds Sitter at bedside Reorient as needed Avoid delirium triggers Stopped Tamiflu and Cefepime, encephalopathy resolved HTN Continue home meds DVT prophylaxis: Lovenox Acute kidney injury, resolved Metabolic encephalopathy, resolved Sepsis, resolved Diagnosis/Problems Diagnosis/Problems (1) Sepsis Status: Resolved Resolution Date/Time: 10/14/21 @ 13:14 (2) Influenza A Status: Acute (3) PNA (pneumonia) Status: Acute (4) Dementia Status: Chronic (5) Delirium Status: Resolved Resolution Date/Time: 10/14/21 @ 13:14 (6) DHRUV (acute kidney injury) Status: Resolved Resolution Date/Time: 10/14/21 @ 13:14 (7) Pancytopenia Status: Acute (8) HTN (hypertension) Status: Chronic (9) Acute metabolic encephalopathy Status: Resolved Resolution Date/Time: 10/14/21 @ 13:14 BROCK FLAHERTY MD Oct 14, 2021 13:14
[2021-10-14] MEDS: ENOXAPARIN 40 MG/0.4 ML (LOVENOX) SYR SC SCH (15:41)
[2021-10-14 16:11] VITALS: BP 122/74
[2021-10-14] MEDS: DONEPEZIL 10 MG (ARICEPT) TAB PO SCH (19:59)
[2021-10-15] VITALS: BP 146/82
[2021-10-15] MEDS: PIPERACILLIN SODIUM/TAZOBACTAM 4.5 GM in NS (IVPB) 100 ML IV SCH ×2 (02:30→10:30)
[2021-10-15 06:11] LABS: EOSINOPHILS # (AUTO) 0.1 10^3/uL (0.0-0.3); EOSINOPHILS % (AUTO) 2 % (0-10); PLATELET COUNT 83 10^3/uL (130-400); WHITE BLOOD COUNT 2.7 10^3/uL (4.3-11.0)
[2021-10-15 06:12] LABS: BASOPHILS % (AUTO) 1 % (0-10); HEMATOCRIT 34 % (40-54); HEMOGLOBIN 11.2 g/dL (13.3-17.7); LYMPHOCYTES # (AUTO) 1.2 10^3/uL (1.0-4.0); LYMPHOCYTES % (AUTO) 43 % (12-44); MEAN CORPUSCULAR HEMOGLOBIN 33 pg (25-34); MEAN CORPUSCULAR HGB CONC 33 g/dL (32-36); MEAN CORPUSCULAR VOLUME 98 fL (80-99); MEAN PLATELET VOLUME 11.6 fL (9.0-12.2); MONOCYTES # (AUTO) 0.3 10^3/uL (0.0-1.0); MONOCYTES % (AUTO) 12 % (0-12); NEUTROPHILS % (AUTO) 37 % (42-75)
[2021-10-15 06:22] LABS: POTASSIUM 3.6 MMOL/L (3.6-5.0)
[2021-10-15 06:27] LABS: CREATININE SERUM 0.75 MG/DL (0.60-1.30)
[2021-10-15] MEDS: KCL 20 MEQ TAB (K-DUR) PO SCH (06:31)
[2021-10-15] MEDS: POTASSIUM CL 10MEQ/50ML IVPB 50 ML IV SCH (06:31)
[2021-10-15] MEDS: MAGNESIUM 1 GM/100 ML IVPB 100 ML IV SCH (06:57)
[2021-10-15] MEDS ORDERED: KCL 20 MEQ TAB (K-DUR) PO ONE (08:00)
[2021-10-15 08:34] VITALS: BP 148/71
[2021-10-15] MEDS: MEMANTINE 10 MG (NAMENDA) TABLET PO SCH (09:00)
[2021-10-15] MEDS: NICOTINE PATCH REMOVAL TP SCH (09:00)
[2021-10-15] MEDS: NICOTINE 21 MG (NICODERM) PATCH TD SCH (09:00)
[2021-10-15] MEDS: lisINopril 20 MG (PRINIVIL) TABLET PO SCH (09:00)
[2021-10-15] MEDS: amLODIPine 10 MG (NORVASC) TAB PO SCH (09:00)
[2021-10-15] MEDS: LORATADINE (CLARITIN) 10 MG TAB PO SCH (09:00)
[2021-10-15] MEDS: DOCUSATE SODIUM 100 MG (COLACE) CAP PO SCH (09:00)
--- NOTE | 2021-10-15 10:00 | Physical Therapy Daily Note ---
PT Daily Note-Current Subjective Patient presented laying in bed and agrees to get up with therapy. Mental Status Patient Orientation: Person, Place, Time, Situation Transfers SCALE: Activities may be completed with or without assistive devices. 5-Asdiidvqds-tqqvces completes the activity by him/herself with no assistance from a helper. 5-Set-up or Clean-up Assistance-helper sets up or cleans up; patient completes activity. [place] assists only prior to or following the activity. 4-Supervision or Touching Assistance-helper provides verbal cues and/or touching/steadying and/or contact guard assistance as patient completes activity. Assistance may be provided throughout the activity or intermittently. 3-Partial/Moderate Assistance-helper does LESS THAN HALF the effort. [place] lifts, holds or supports trunk or limbs, but provides less than half the effort. 2-Substantial/Maximal Assistance-helper does MORE THAN HALF the effort. [place] lifts or holds trunk or limbs and provides more than half the effort. 0-Ykkrjlysf-hoivis does ALL the effort. Patient does none of the effort to complete the activity. Or, the assistance of 2 or more helpers is required for the patient to complete the activity. If activity was not attempted, code reason: 7-Patient Refused. 9-Not Applicable-not attempted and the patient did not perform the activity before the current illness, exacerbation or injury. 10-Not Attempted due to Environmental Limitations-(lack of equipment, weather restraints, etc.). 88-Not Attempted due to Medical Conditions or Safety Concerns. Lying to Sitting/Side of Bed(Q: 6 Sit to Stand (QC): 6 Chair/Xqe-aw-Delbc Xfer(QC): 6 Patient is independent for bed mobility Gait Training Does the Patient Walk?: Yes Distance: 150' Walk 10 feet (QC): 6 Walk 50 ft with 2 Turns(QC): 6 Walk 150 ft (QC): 6 Gait Assistive Device: None Patient ambulated within his room for 150' with no AD. Exercises Seated Therapy Exercises: Long arc quads, Hip flexion Seated Reps: 15 Assessment Patient ambulated and performed seated exercises during therapy session. Patient is independent for bed mobility and ambulation. Patient reports that he does not use an AD at home and did not required one during the therapy session today. Patient is being d/c from therapy services due to independence with bed mobility and ambulation. Patient left post tx in his chair with nurse call, phone, chair alarm on and all needs met. PT Fulfillment Specialist Goals [place] Goals PT Fulfillment Specialist Goals Time Frame: Oct 26, 2021 Roll Left & Right (QC): 6 Sit to Lying (QC): 6 Lying-Sitting on Side/Bed(QC): 6 Sit to Stand (QC): 6 Chair/Vnq-xv-Dabzi Xfer(QC): 6 Toilet Transfer (QC): 6 Car Transfer (QC): 6 Does the Patient Walk: Yes Walk 10 feet (QC): 5 Walk 50ft with 2 Turns (QC): 5 Walk 150 ft (QC): 5 1 Step (curb) (QC): 4 4 Steps (QC): 4 12 Steps (QC): 4 PT Plan Treatment/Plan Treatment Plan: Discontinue PT, goals met Treatment Plan: Bed Mobility, Education, Functional Activity Moy, Functional Strength, Group Therapy, Gait, Safety, Therapeutic Exercise, Transfers Treatment Duration: Nov 17, 2021 Frequency: 6 times per week Estimated Hrs Per Day: .25 hour per day Time/GCodes Time In: 845 Time Out: 857 Total Billed Treatment Time: 12 Total Billed Treatment 1 Visit FA 12 min D/C MANUEL GARCIA PT Oct 15, 2021 10:00
--- NOTE | 2021-10-15 11:10 | Occupational Ther Daily Note ---
OT Current Status-Daily Note Subjective Pt in recliner, family member present. Pt agreeable to OT Tx. Mental Status/Objective Patient Orientation: Person, Place, Situation ADL-Treatment Therapy Code Descriptions/Definitions Functional [place] Measure: 0=Not Assessed/NA 4=Minimal Assistance 1=Total Assistance 5=Supervision or Setup 2=Maximal Assistance 6=Modified [place] 3=Moderate Assistance 7=Complete IndependenceSCALE: Activities may be completed with or without assistive devices. 9-Tjddemrwxj-shzcgxn completes the activity by him/herself with no assistance from a helper. 5-Set-up or Clean-up Assistance-helper sets up or cleans up; patient completes activity. [place] assists only prior to or following the activity. 4-Supervision or Touching Assistance-helper provides verbal cues and/or touching/steadying and/or contact guard assistance as patient completes activity. Assistance may be provided throughout the activity or intermittently. 3-Partial/Moderate Assistance-helper does LESS THAN HALF the effort. [place] lifts, holds or supports trunk or limbs, but provides less than half the effort. 2-Substantial/Maximal Assistance-helper does MORE THAN HALF the effort. [place] lifts or holds trunk or limbs and provides more than half the effort. 1-Qeeuqalzm-futcbp does ALL the effort. Patient does none of the effort to com plete the activity. Or, the assistance of 2 or more helpers is required for the patient to complete the activity. If activity was not attempted, code reason: 7-Patient Refused. 9-Not Applicable-not attempted and the patient did not perform the activity before the current illness, exacerbation or injury. 10-Not Attempted due to Environmental Limitations-(lack of equipment, weather restraints, etc.). 88-Not Attempted due to Medical Conditions or Safety Concerns. Toileting Hygiene (QC): 4 (Close SBA and cues for sequencing of task. Pt able to manage clothing and perform hygiene.) Other Treatment Pt seated in recliner, agreeable to OT Tx. Pt used FWW to go into bathroom, SBA. Once in bathroom, pt stood to the side of the toilet, OT asked pt if he was going to stand or sit, he replied sit. OT provided cues in order for pt to get in front of the toilet, then cues to manage pants down. Pt sat on toilet, completed toileting, then stood with SBA. Pt able to manage pants up, then stood at sink to wash his hands. Pt required cues to locate soap and towels. Pt used FWW to return to recliner, OT assisted pt with guiding walker in order for pt to keep walker with him throughout transfer, then cues to reach back for the chair prior to sitting. Post tx, pt seated in recliner, call light in reach and all needs met, chair alarm activated. Education OT Patient Education: Correct positioning, Energy conservation, Modified ADL techniques, Progress toward Goal/Update tx plan, Purpose of tx/functional activities Teaching Recipient: Patient Teaching Methods: Discussion Response to Teaching: Verbalize Understanding OT Road Repairer Goals Care Home Goals Time Frame: Oct 19, 2021 Eating (QC): 6 Oral Hygiene (QC): 6 Toileting Hygiene (QC): 6 Shower/Bathe Self (QC): 6 Upper Body Dressing (QC): 6 Lower Body Dressing (QC): 6 On/Off Footwear (QC): 6 Additional Goals: 1-Demonstrate ADL Tasks, 2-Verbalize Understanding, 3-ImproveStrength/[place] 1=Demonstrate adherence to instructed precautions during ADL tasks. 2=Patient will verbalize/demonstrate understanding of assistive devices/modifications for ADL. 3=Patient will improve strength/tolerance for activity to enable patient to perform ADL's. OT Education/Plan Problem List/Assessment Assessment: Decreased Activ Tolerance, Decreased UE Strength, Impaired Funct Balance, Impaired I ADL's, Impaired Self-Care Skills Discharge Recommendations Plan/Recommendations: Continue POC Treatment Plan/Plan of Care Patient would benefit from OT for education, treatment and training to promote independence in ADL's, mobility, safety and/or upper extremity function for ADL's. Plan of Care: ADL Retraining, Functional Mobility, UE Funct Exercise/Act Treatment Duration: Oct 19, 2021 Frequency: 3 times per week (3-5 times per week) Estimated Hrs Per Day: .25 hour per day Agreement: Yes Rehab Potential: Fair Time/GCodes Start Time: 10:53 Stop Time: 11:04 Total Time Billed (hr/min): 11 Billed Treatment Time 1, ADL ARIANA TEIXEIRA OT Oct 15, 2021 11:10
[2021-10-15] MEDS ORDERED: AMOX-358 PO (13:13)
--- NOTE | 2021-10-15 13:29 | Discharge Summary ---
Discharge Summary Instructions for Patient [facility] Assessment/Instructions Take medications as prescribed. Stop taking Tamiflu. Complete your course of antibiotics even if you are feeling better. You are being set up with home health care. Follow up with Dr. Collado in about a week. Return with worsening shortness of breath, confusion, or if you feel like you are getting worse. Physician to follow Patient: Seramichellebecky Discharge Diet for Home: Low Sodium Diet Hospital Course Date of Admission: Oct 11, 2021 at 11:20 Admission Diagnosis : Sepsis due to pneumonia and influenza Family Physician/Provider: Stevie Collado DO Date of Discharge: 10/15/21 Discharge Diagnosis: Sepsis due to pneumonia and influenza Hospital Course: Andrei Jonas is a 76 year old male with PMH HTN, Alzheimer's dementia, who was admitted with sepsis due to pnemonia and influenza A. He was started on IV antibiotics and Tamiflu. He developed delirium and the Tamiflu was discontinued. His delirium quickly resolved. He was transitioned to oral Augmentin and will complete a course of antibiotics at home. His course was complicated by mild pancytopenia. This may have been due to his viral illness, but if this persists a hematology evaluation may be warranted. He was set up with home health care for ongoing therapy. He was discharged home in stable condition and should follow up with Dr. Collado in about a week. Labs and Pending Lab Test: Laboratory Tests 10/15/21 05:43: White Blood Count 2.7L, Red Blood Count 3.42L, Hemoglobin 11.2L, Hematocrit 34L, Mean Corpuscular Volume 98, Mean Corpuscular Hemoglobin 33, Mean Corpuscular Hemoglobin Concent 33, Red Cell Distribution Width 12.8, Platelet Count 83L, Mean Platelet Volume 11.6, Immature Granulocyte % (Auto) 6, Neutrophils (%) (Auto) 37L, Lymphocytes (%) (Auto) 43, Monocytes (%) (Auto) 12, Eosinophils (%) (Auto) 2, Basophils (%) (Auto) 1, Neutrophils # (Auto) 1.0L, Lymphocytes # (Auto) 1.2, Monocytes # (Auto) 0.3, Eosinophils # (Auto) 0.1, Basophils # (Auto) 0.0, Immature Granulocyte # (Auto) 0.2H, Percent Immature Platelet Fraction 6.0, Sodium Level 141, Potassium Level 3.6, Chloride Level 110H, Carbon Dioxide Level 23, Anion Gap 8, Blood Urea Nitrogen 11, Creatinine 0.75, Estimat Glomerular Filtration Rate 95, BUN/Creatinine Ratio 15, Glucose Level 108H, Calcium Level 8.0L, Magnesium Level 2.3 Microbiology 10/11/21 Urine Culture - Final, Complete NO GROWTH 10/11/21 Blood Culture - Preliminary, Resulted No growth Home Meds Active Augmentin 875-125 Tablet (Amoxicillin/Potassium Clav) 1 Each Tablet 1 Each PO BID 5 Days Reported Memantine HCl 10 Mg Tablet 10 Mg PO BID Amlodipine Besylate 10 Mg Tablet 10 Mg PO DAILY Loratadine 10 Mg Tablet 10 Mg PO DAILY Meloxicam 15 Mg Tablet 15 Mg PO DAILY Donepezil HCl 10 Mg Tablet 10 Mg PO HS Lisinopril 20 Mg Tablet 20 Mg PO DAILY Oseltamivir Phosphate 75 Mg Capsule 75 Mg PO BID FILLED 10-09-2021 #10/5 DAY SUPPLY Patient Allergies: Coded Allergies: Tamiflu (Verified Allergy, Intermediate, 10/15/21) DELIRIUM Home Health Need/Face to Face Date of Face to Face: Oct 15, 2021 Clinical Findings: Instability, Muscle weakness, Unsteady gait I have seen Pt onhz-wv-wjyd: Yes Discharged To: Home (Pneumon) Diagnosis/Conditions: Pneumonia Delirium Dementia HTN Pancytopenia Problems/Diagnosis/Condition: (1) PNA (pneumonia) (2) HTN (hypertension) (3) Pancytopenia (4) Dementia (5) Delirium Patient is Homebound due to: [place] fall risk due to instabilty, Muscle weakness Homebound Status Due to the above stated illness, injury or surgical procedure (medical condition or diagnosis) and associated clinical findings, the patient is homebound because of his/her inability to leave home except with aid of a supportive device and/or person AND leaving the home requires a considerable and taxing effort or is medically contraindicated. Pt req the following assistanc: Aid of another person Home Health Nursing Orders Home Health Services Order: Nursing Services, Repairer Kiln Car-Evaluate & T reat, Physical Therapy-Evaluate & Treat Home Health Infusion Therapy Line Start Date: Oct 11, 2021 Therapy Orders Therapy Orders: OT (must have SN or PT order), Physical Therapy Therapy Specific Orders: Eval assistive deivces, Teach enviro modifications/safety, Gait training, Increase strength/endurance Certify Stmt I certify that this patient is under my care and that I, a nurse practitioner or a physician; a night assistant working with me, had a face to face encounter that - meets the physician face to face encounter requirements with this patient as dated. Discharge Physical Exam General: Alert, Oriented X3, Cooperative, No Acute Distress HEENT: Atraumatic, EOMI, Mucous Memb Moist/Cope Lungs: Clear to Auscultation, Normal Air Movement Heart: Regular Rate, No Murmurs Abdomen: Normal Bowel Sounds, Soft, No Tenderness Extremities: No Edema, No Tenderness/Swelling Skin: No Rashes, No Significant Lesion Psych/Mental Status: Mood NL BORCK FLAHERTY MD Oct 15, 2021 13:24
== END 2021-10-15 14:30 | disposition home health service (06) | DRG 871 ==
LOC: EDUNIT# 09:21 → ER 09:27 → CSD 11:20 → 4TH 10-12 14:06
PROVIDERS: ADMIT Internal Medicine; ATTEND Internal Medicine
PROC: 8E0ZXY6 Isolation (ICD-10-PCS; principal; 2021-10-11)
DX: A41.9 Sepsis, unspecified organism (principal); J18.9 Pneumonia, unspecified organism; G92.8 Other toxic encephalopathy; J96.01 Acute respiratory failure with hypoxia; D61.818 Other pancytopenia; N17.9 Acute kidney failure, unspecified; J10.1 Influenza due to other identified influenza virus with other respiratory manifestations; G30.9 Alzheimer's disease, unspecified; F02.80 Dementia in other diseases classified elsewhere, unspecified severity, without behavioral disturbance, psychotic disturbance, mood disturbance, and anxiety; I10 Essential (primary) hypertension; R41.0 Disorientation, unspecified; E11.9 Type 2 diabetes mellitus without complications; H91.90 Unspecified hearing loss, unspecified ear; T37.5X5A Adverse effect of antiviral drugs, initial encounter; F17.220 Nicotine dependence, chewing tobacco, uncomplicated; Z20.822 Contact with and (suspected) exposure to COVID-19; Z79.899 Other long term (current) drug therapy
CPT/HCPCS: 36415; 51702; 70450; 71045; 80048; 80053; 80202; 81000; 82805; 83605; 83735; 83880; 84145; 85007; 85025; 85027; 85610; 85730; 87040; 87088; 87636; 94664; 94760

== ENCOUNTER 2022-04-04 10:46 | Inpatient (IN) | payer MEDICARE, OTHER ==
[~2022-04-04] VITALS: Ht 172 cm; Wt 89.0 kg
[~2022-04-04 10:46] MED LIST: AMLO-251 PO; AMOX-358 PO; DONE10TA41 PO; LISI20TA26 PO; LORA10TA7 PO; MELO15TA39 PO; MEMA10TA57 PO; OSEL75CA15 PO
--- NOTE | 2022-04-04 11:13 | ED Cough/URI ---
General Chief Complaint: COVID19 Suspect/Confirmed Stated Complaint: WEAKNESS,COVID Source: patient Exam Limitations: no limitations History of Present Illness Date Seen by Provider: Apr 04, 2022 Time Seen by Provider: 11:09 Initial Comments Patient is a 76-year-old male with a history of dementia, hypertension, diabetes who presents ED with generalized weakness fatigue and COVID-positive. States he tested positive for COVID today. He states over the past week he has been having cough with some shortness of breath. Denies of any chest pain or abdominal pain, vomiting or diarrhea. Patient has had flulike symptoms of body aches and weakness and fatigue. The weakness got worse over the past 2 days and has not been able to get out of bed, eat or drink. Patient lives at home. Does use a walker to ambulate. Difficulty obtaining history from patient. Patient does not wear oxygen at home. Reports some headache and dizziness. Denies of any specific chest pain at this time. No unilateral muscle weakness, facial droop, slurred speech, unilateral numbness sensation. Denies history of stroke or cancer. According to the nurse patient was more confused today according to who also has COVID. Patient was picking at things. Did not take his daily meds today. Patient appeared more forgetful Allergies and Home Medications Allergies Coded Allergies: oseltamivir (Verified Allergy, Intermediate, 10/15/21) DELIRIUM Patient Home Medication List Home Medication List Reviewed: Yes Amlodipine Besylate (Amlodipine Besylate) 10 Mg Tablet, 10 MG PO DAILY, (Reported) Entered as Reported by: JULIANNE LUCAS on 10/11/21 1350 Amoxicillin/Potassium Clav (Augmentin 875-125 Tablet) 1 Each Tablet, 1 EACH PO BID Prescribed by: BROCK FLAHERTY on 10/15/21 1313 Donepezil HCl (Donepezil HCl) 10 Mg Tablet, 10 MG PO HS, (Reported) Entered as Reported by: JULIANNE LUCAS on 10/11/21 1349 Lisinopril (Lisinopril) 20 Mg Tablet, 20 MG PO DAILY, (Reported) Entered as Reported by: JULIANNE ULCAS on 10/11/21 1349 Loratadine (Loratadine) 10 Mg Tablet, 10 MG PO DAILY, (Reported) Entered as Reported by: JULIANNE LUCAS on 10/11/21 1350 Meloxicam (Meloxicam) 15 Mg Tablet, 15 MG PO DAILY, (Reported) Entered as Reported by: JULIANNE LUCAS on 10/11/21 1349 Memantine HCl (Memantine HCl) 10 Mg Tablet, 10 MG PO BID, (Reported) Entered as Reported by: JULIANNE LUCAS on 10/11/21 1351 Review of Systems Review of Systems Constitutional: chills; No diaphoresis; weakness EENTM: No blurred vision, No double vision Respiratory: cough, short of breath Cardiovascular: No chest pain Gastrointestinal: No abdominal pain, No diarrhea, No nausea, No vomiting Genitourinary: No decreased output, No discharge Musculoskeletal: No back pain, No joint pain Skin: No change in color Psychiatric/Neurological: Other (dementia) All Other Systems Reviewed Negative Unless Noted: Yes Past Spldabb-Ombmpr-Jzmqfs Hx Immunizations Up To Date First/Initial COVID19 Vaccinat: MAY 2021 Second COVID19 Vaccination Doe: JUNE 2021 Past Medical History Hypertension Dementia Family Medical History No Pertinent Family Hx Physical Exam Vital Signs - First Documented 04/04/22 10:46 Temp 38.2 Pulse 100 Resp 18 B/P (MAP) 105/91 (96) Pulse Ox 95 O2 Delivery Room Air Capillary Refill : Height: '" Weight: lbs. oz. kg; 29.00 BMI Method: General Appearance: WD/WN, no apparent distress Eyes: Bilateral Eye Normal Inspection, Bilateral Eye PERRL, Bilateral Eye EOMI HEENT: PERRL/EOMI, normal ENT inspection, TMs normal, pharynx normal Neck: non-tender, full range of motion, supple Respiratory: chest non-tender, lungs clear, normal breath sounds, no respiratory distress Cardiovascular: regular rate, rhythm, no edema, no gallop, no JVD Gastrointestinal: normal bowel sounds, non tender, soft Extremities: normal range of motion, non-tender, normal inspection Neurologic/Psychiatric: pharmacy clinical specialist II-XII nml as tested, no motor/sensory deficits, alert, other (confused) Skin: normal color, warm/dry Focused Exam Lactate Level 04/04/22 11:20: Lactic Acid Level 0.79 Lactic Acid Level Laboratory Tests Test 04/04/22 11:20 Lactic Acid Level 0.79 MMOL/L (0.50-2.00) Progress/Results/Core Measures Suspected Sepsis SIRS Temperature: Pulse: 100 Respiratory Rate: 18 Laboratory Tests 04/04/22 10:50: White Blood Count 4.2L Blood Pressure 105 /91 Mean: 96 04/04/22 11:20: Lactic Acid Level 0.79 Laboratory Tests 04/04/22 10:50: Creatinine 1.27, Platelet Count 88L, Total Bilirubin 0.7 Results/Orders Lab Results Laboratory Tests Test 04/04/22 10:50 04/04/22 11:20 04/04/22 12:23 Range/Units White Blood Count 4.2 L 4.3-11.0 10^3/uL Red Blood Count 4.16 L 4.30-5.52 10^6/uL Hemoglobin 13.7 13.3-17.7 g/dL Hematocrit 40 40-54 % Mean Corpuscular Volume 97 80-99 fL Mean Corpuscular Hemoglobin 33 25-34 pg Mean Corpuscular Hemoglobin Concent 34 32-36 g/dL Red Cell Distribution Width 13.6 10.0-14.5 % Platelet Count 88 L 130-400 10^3/uL Mean Platelet Volume 12.4 H 9.0-12.2 fL Immature Granulocyte % (Auto) 1 % Neutrophils (%) (Auto) 57 42-75 % Lymphocytes (%) (Auto) 10 L 12-44 % Monocytes (%) (Auto) 32 H 0-12 % Eosinophils (%) (Auto) 0 0-10 % Basophils (%) (Auto) 0 0-10 % Neutrophils # (Auto) 2.4 1.8-7.8 10^3/uL Lymphocytes # (Auto) 0.4 L 1.0-4.0 10^3/uL Monocytes # (Auto) 1.4 H 0.0-1.0 10^3/uL Eosinophils # (Auto) 0.0 0.0-0.3 10^3/uL Basophils # (Auto) 0.0 0.0-0.1 10^3/uL Immature Granulocyte # (Auto) 0.0 0.0-0.1 10^3/uL Neutrophils % (Manual) 46 % Lymphocytes % (Manual) 12 % Monocytes % (Manual) 28 % Myelocytes % 1 % Band Neutrophils 13 % Percent Immature Platelet Fraction 9.0 H 0.0-7.6 % Blood Morphology Comment NORMAL Sodium Level 137 135-145 MMOL/L Potassium Level 3.8 3.6-5.0 MMOL/L Chloride Level 105 98-107 MMOL/L Carbon Dioxide Level 19 L 21-32 MMOL/L Anion Gap 13 5-14 MMOL/L Blood Urea Nitrogen 23 H 7-18 MG/DL Creatinine 1.27 0.60-1.30 MG/DL Estimat Glomerular Filtration Rate 59 BUN/Creatinine Ratio 18 Glucose Level 97 70-105 MG/DL Calcium Level 8.6 8.5-10.1 MG/DL Corrected Calcium 8.8 8.5-10.1 MG/DL Magnesium Level 2.5 H 1.6-2.4 MG/DL Total Bilirubin 0.7 0.1-1.0 MG/DL Aspartate Amino Transf (AST/SGOT) 22 5-34 U/L Alanine Aminotransferase (ALT/SGPT) 18 0-55 U/L Alkaline Phosphatase 66 40-136 U/L Troponin I < 0.028 <0.028 NG/ML C-Reactive Protein High Sensitivity 13.84 H 0.00-0.50 MG/DL B-Type Natriuretic Peptide 38.2 <100.0 PG/ML Total Protein 6.6 6.4-8.2 GM/DL Albumin 3.8 3.2-4.5 GM/DL Lipase 22 8-78 U/L Procalcitonin 0.26 H <0.10 NG/ML Lactic Acid Level 0.79 0.50-2.00 MMOL/L My Orders Orders - BJORN CABRAL PA Cbc With Automated Diff (04/04/22 11:07) Comprehensive Metabolic Panel (04/04/22 11:07) Lipase (04/04/22 11:07) Magnesium (04/04/22 11:07) Lactic Acid Analyzer (04/04/22 11:07) Hs C Reactive Protein (04/04/22 11:07) Procalcitonin (Pct) (04/04/22 11:07) Chest 1 View, Ap/Pa Only (04/04/22 11:07) Ekg Tracing (04/04/22 11:07) Bnp Lety (04/04/22 11:07) Troponin I [place] (04/04/22 11:07) Urinalysis (04/04/22 11:07) Blood Culture (04/04/22 11:14) Blood Culture (04/04/22 11:30) Acetaminophen Tablet (Tylenol Tablet) (04/04/22 11:30) Ceftriaxone 1 Gm Pre-Mix (Rocephin 1 Gm (04/04/22 11:16) Manual Differential (04/04/22 10:50) Covid 19 Inhouse Test (04/04/22 12:17) Influenza A And B By Pcr (04/04/22 12:17) Ed Admission (Communication) (04/04/22 12:30) Medications Given in ED Current Medications Medications Dose Ordered Sig/Marita Route Start Time Stop Time Status Last Admin Dose Admin Acetaminophen 1,000 mg ONCE ONCE PO 04/04/22 11:30 04/04/22 11:31 DC 04/04/22 11:37 1,000 MG Vital Signs/I&O 04/04/22 10:46 Temp 38.2 Pulse 100 Resp 18 B/P (MAP) 105/91 (96) Pulse Ox 95 O2 Delivery Room Air Capillary Refill : Blood Pressure Mean: 96 ECG Comment Sinus rhythm, 90 bpm, QRS duration 105 MS, QTc 396 MS, Departure Communication (Admissions) Time/Spoke to Admitting Phy: 12:30 Dr. Reardon accepts Communication (PCP) Patient is a 76-year-old male with a history of dementia limited history from patient on arrival but was able to report that he has been having a cough short of breath and weakness. Has not been able to ambulate over the past 2 days. Typically ambulates with a walker. EMS at the scene states patient was hypotensive was started on a liter of fluid. Blood pressure 105/91. Patient has remained around similar blood pressure during his stay. He has not been eating or drinking. Was started on a second liter of fluid. White blood count returned at 4.2. He was afebrile. Blood cultures pending. Normal lactic acid was given Rocephin concerning for sepsis. Chest x-ray negative for pneumonia. Tested positive for COVID at home. Urinalysis currently pending. Normal electrolytes. Elevated CRP. Patient will be admitted for generalized weakness, hypotension. Concerned that patient would not be able to return home in this current state. Dr. Reardon accepts patient Impression Primary Impression: COVID-19 Additional Impressions: Hypotension Weakness Disposition: ADMITTED INPATIENT Condition: Stable Admissions Decision to Admit Reason: Admit from ER (General) Decision to Admit/Date: Apr 04, 2022 Time/Decision to Admit Time: 12:30 Departure-Patient Inst. Referrals: YUSUF DISLA DO (PCP/Family) Primary Care Physician BJORN CABRAL Apr 04, 2022 11:13
[2022-04-04 11:14] LABS: BASOPHILS % (AUTO) 0 % (0-10); EOSINOPHILS % (AUTO) 0 % (0-10); HEMOGLOBIN 13.7 g/dL (13.3-17.7); MEAN CORPUSCULAR VOLUME 97 fL (80-99)
[2022-04-04 11:16] LABS: HEMATOCRIT 40 % (40-54); LYMPHOCYTES # (AUTO) 0.4 10^3/uL (1.0-4.0); LYMPHOCYTES % (AUTO) 10 % (12-44); MEAN CORPUSCULAR HEMOGLOBIN 33 pg (25-34); MEAN CORPUSCULAR HGB CONC 34 g/dL (32-36); MEAN PLATELET VOLUME 12.4 fL (9.0-12.2); MONOCYTES # (AUTO) 1.4 10^3/uL (0.0-1.0); MONOCYTES % (AUTO) 32 % (0-12); NEUTROPHILS # (AUTO) 2.4 10^3/uL (1.8-7.8); NEUTROPHILS % (AUTO) 57 % (42-75); PLATELET COUNT 88 10^3/uL (130-400); WHITE BLOOD COUNT 4.2 10^3/uL (4.3-11.0)
[2022-04-04] MEDS ORDERED: cefTRIAXone 1 GM PRE-MIX 50 ML IV STA (11:16)
[2022-04-04 11:29] LABS: ALANINE AMINOTRANSFERASE 18 U/L (0-55); ALBUMIN 3.8 GM/DL (3.2-4.5); ALKALINE PHOSPHATASE 66 U/L (40-136); BILIRUBIN,TOTAL 0.7 MG/DL (0.1-1.0); BUN/CREATININE RATIO 18; CALCIUM 8.6 MG/DL (8.5-10.1); CARBON DIOXIDE 19 MMOL/L (21-32); CHLORIDE 105 MMOL/L (98-107); CREATININE SERUM 1.27 MG/DL (0.60-1.30); GFR ESTIMATED 59; GLUCOSE 97 MG/DL (70-105); LIPASE 22 U/L (8-78); MAGNESIUM 2.5 MG/DL (1.6-2.4); POTASSIUM 3.8 MMOL/L (3.6-5.0); SODIUM 137 MMOL/L (135-145); TOTAL PROTEIN 6.6 GM/DL (6.4-8.2)
[2022-04-04] MEDS ORDERED: ACETAMINOPHEN 500 MG TAB (TYLENOL) PO ONE (11:30)
[2022-04-04 11:32] LABS: BAND NEUTROPHILS 13 %; LYMPHOCYTES % (MANUAL) 12 %; MONOCYTES % (MANUAL) 28 %; MYELOCYTES % 1 %; NEUTROPHILS % (MANUAL) 46 %; RBC MORPH NORMAL
--- NOTE | 2022-04-04 12:12 | Diagnostic Imaging Report ---
Indication: Cough and weakness. Frontal chest obtained at 1156 a.m. COMPARISON: 10/12/2021 Heart and mediastinal silhouette are normal in appearance. There are COPD changes. There is no focal infiltrate or pneumothorax or pleural fluid. IMPRESSION: COPD changes. No focal acute abnormality. Dictated by: Dictated on workstation # [id number]
[2022-04-04] MEDS ORDERED: NS IV 1000 ML 1,000 ML IV STA (12:49)
[2022-04-04 13:09] LABS: CLARITY,URINE CLEAR; COLOR,URINE YELLOW; GLUCOSE, URINE (UA) NEGATIVE (NEGATIVE); KETONES,URINE 1+ (NEGATIVE); LEUKOCYTE ESTERASE ,URINE NEGATIVE (NEGATIVE); NITRITE,URINE NEGATIVE (NEGATIVE); PH,URINE 5.5 (5-9); PROTEIN,URINE 2+ (NEGATIVE)
[2022-04-04 13:33] LABS: AMORPHOUS SEDIMENT,UR MOD AMOR URATES /LPF; BACTERIA,URINE NEGATIVE /HPF; BILIRUBIN,URINE NEGATIVE (NEGATIVE)
[2022-04-04 13:34] LABS: HYALINE CASTS, URINE RARE /LPF
[2022-04-04] MEDS ORDERED: MILK OF MAGNESIA 400 MG/5 ML 30 ML UDC PO PRN (15:00)
[2022-04-04] MEDS ORDERED: BENZONATATE 100 MG (TESSALON) CAPSULE PO PRN (15:00)
[2022-04-04] MEDS ORDERED: ONDANSETRON 4 MG/2 ML (SDV) Z0FRAN IV PRN (15:00)
[2022-04-04] MEDS ORDERED: ANTACID SUSP 30 ML UDC (MYLANTA) PO PRN (15:00)
--- NOTE | 2022-04-04 15:07 | History & Physical-Hospitalist ---
History of Present Illness HPI/Chief Complaint Patient is a 76-year-old male with past medical history of dementia, hypertension who presented to the emergency department due to weakness. When asked how he is feeling he states "I am going to go get some gas in my car." He is unable to provide me any other history. All history is obtained from records. Per their notes he presented with weakness and fatigue after testing positive for COVID today. He has been having a cough and shortness of breath over the past week. His weakness worsened over the past 2 days and was unable to get out of bed. He has been not eating or drinking very much either. He lives at home with his and she is unable to care for him anymore due to the weakness. Apparently he was more confused than normal today as well. Source: patient Date Seen 04/04/22 Time Seen by a Provider: 14:10 Attending Physician Yusuf Disla DO PCP Admitting Physician: Vannessa Reardon MD Attending Physician: Vannessa Reardon MD Referring Physician Date of Admission Apr 04, 2022 at 12:31 Home Medications & Allergies Home Medications Reviewed patient Home Medication Reconciliation performed by pharmacy medication reconciliations radiocommunications technician and/or nursing. Patients Allergies have been reviewed. Allergies Allergies Coded Allergies oseltamivir (Verified Allergy, Intermediate, 10/15/21) DELIRIUM Past Uylsftn-Ipeamh-Jvxqvd Hx Patient Social History Marrital Status: Employed/Student: retired Tobacco Use?: No Use of E-Cig and/or Vaping dev: No Substance use?: No Alcohol Use?: No Pt feels they are or have been: No Immunizations Up To Date Date of Influenza Vaccine: Jun 10, 2021 First/Initial COVID19 Vaccinat: RECEIVED, UNK WHEN Second COVID19 Vaccination Doe: RECEIVED, UNK WHEN Tetanus Booster (TDap): Unknown Current Status Advance Directives: No Communicates: Verbally Primary Language: [place] Preferred Spoken Language: [place] Is interpretation needed?: No Implanted or Applied Medical D: None Past Medical History Hypertension Dementia Family Medical History Reviewed Nursing Family Hx No Pertinent Family Hx Review of Systems ROS-Unable to Obtain: dementia and confusion Constitutional: see HPI Physical Exam Physical Exam Vital Signs Vital Signs - First Documented 04/04/22 10:46 Temp 38.2 Pulse 100 Resp 18 B/P (MAP) 105/91 (96) Pulse Ox 95 O2 Delivery Room Air Capillary Refill : Height, Weight, BMI Height: '" Weight: lbs. oz. kg; 29.00 BMI Method: General Appearance: No Apparent Distress, Chronically ill HEENT: PERRL/EOMI; No Scleral Icterus (L), No Scleral Icterus (R); Other (dry mucus membranes) Neck: Normal Inspection, Supple Respiratory: Lungs Clear, No Accessory Muscle Use, No Respiratory Distress Cardiovascular: Regular Rate, Rhythm, No JVD, No Murmur Gastrointestinal: Normal Bowel Sounds, Non Tender Extremity: Normal Capillary Refill, No Calf Tenderness, No Pedal Edema Neurologic/Psychiatric: Alert, Disoriented Skin: Normal Color, Warm/Dry; No Mottled Results Results/Procedures Labs Laboratory Tests 04/05/22 05:44 04/06/22 08:49 Patient resulted labs reviewed. Imaging: Reviewed Imaging Report Imaging [facility]. [place], [place] NAME: JEREMIAS BECK [facility] REC#: [id number] PT STATUS: ADM IN : 1945 PHYSICIAN: BJORN CABRAL ADMIT DATE: 04/04/22 Signed Date of Exam:04/04/22 CHEST 1 VIEW, AP/PA ONLY Indication: Cough and weakness. Frontal chest obtained at 1156 a.m. COMPARISON: 10/12/2021 Heart and mediastinal silhouette are normal in appearance. There are COPD changes. There is no focal infiltrate or pneumothorax or pleural fluid. IMPRESSION: COPD changes. No focal acute abnormality. Dictated by: Dictated on workstation # [id number] Dict: 04/04/22 1210 Trans: 04/04/[address] [facility] [id number] Interpreted by: TRACY CAMPBELL MD Electronically signed by: TRACY CAMPBELL MD 04/04/22 1407 Assessment/Plan Admission Diagnosis Debility due to COVID19 Admission Status: Inpatient Order (span 2 midnights) Reason for Inpatient Admission: see below Assessment and Plan Debility due to COVID19 Not hypoxic no indication for decadron Roughly 1 week in to symptoms per notes- will discuss with Pharmacy regarding any treatment options that can be done inpatient PT/OT IVF Tylenol prn fevers Robitussin for cough No further abx as not indication of bacterial illness Dementia Reorient as needed Resume home meds HTN BP soft so hold home meds DVT ppx: Lovenox Diagnosis/Problems Diagnosis/Problems (1) Weakness Status: Acute (2) Hypotension Status: Acute (3) COVID-19 Status: Acute (4) Dementia Status: Chronic (5) Pancytopenia Status: Acute (6) HTN (hypertension) Status: Chronic Copy Copies To 1: YUSUF DISLA KATELYN M MD Apr 04, 2022 15:07
[2022-04-04] MEDS ORDERED: RX-NIRMATRELVIR/RITONAVIR (PAXLOVID) #30 TABS PO SCH (15:30)
[2022-04-04] MEDS: ENOXAPARIN 40 MG/0.4 ML (LOVENOX) SYR SC SCH (15:34)
[2022-04-04] MEDS: guaiFENesin SYRUP 100 MG/5 ML 10 ML (ROBITUSSIN SF) PO SCH ×3 (15:34→23:12)
[2022-04-04] MEDS: NS IV 1000 ML 1,000 ML IV SCH (15:34)
[2022-04-04 15:41] VITALS: BP 99/57
[2022-04-04] MEDS ORDERED: RELABEL FOR HOME USE MC SCH (15:45)
[2022-04-04] MEDS ORDERED: NIRMATRELVIR/RITONAVIR (PAXLOVID) TABLET PO SCH (17:00)
[2022-04-04] MEDS: NIRMATRELVIR/RITONAVIR (PAXLOVID) TABLET PO SCH (18:01)
[2022-04-04 19:03] VITALS: BP 132/69
[2022-04-04] MEDS ORDERED: LORazepam INJ 2 MG/ML (ATIVAN) VIAL IVP PRN (20:15)
[2022-04-04] MEDS ORDERED: HALOPERIDOL 5 MG/ML (HALDOL) VIAL IV PRN ×2 (20:30→21:30)
[2022-04-04] MEDS ORDERED: HALOPERIDOL 5 MG/ML (HALDOL) VIAL ONE (20:31)
[2022-04-04] MEDS: MELATONIN 3 MG TABLET PO PRN (20:38)
[2022-04-05] MEDS: guaiFENesin SYRUP 100 MG/5 ML 10 ML (ROBITUSSIN SF) PO SCH ×5 (02:51→17:55)
[2022-04-05 04:00] VITALS: BP 109/62
[2022-04-05 05:55] LABS: HEMOGLOBIN 12.7 g/dL (13.3-17.7); WHITE BLOOD COUNT 10.2 10^3/uL (4.3-11.0)
[2022-04-05] MEDS: NIRMATRELVIR/RITONAVIR (PAXLOVID) TABLET PO SCH ×2 (06:12→17:55)
[2022-04-05 06:20] LABS: CALCIUM 8.1 MG/DL (8.5-10.1); CREATININE SERUM 0.97 MG/DL (0.60-1.30); POTASSIUM 4.7 MMOL/L (3.6-5.0)
[2022-04-05 08:00] VITALS: BP 111/63
[2022-04-05] MEDS: NS IV 1000 ML 1,000 ML IV SCH (10:29)
--- NOTE | 2022-04-05 11:00 | Physical Therapy Evaluation ---
PT Evaluation-General Medical Diagnosis Admission Date Apr 04, 2022 at 12:31 Medical Diagnosis: Covid Onset Date: Apr 04, 2022 Therapy Diagnosis Therapy Diagnosis: debility/weakness Precautions Precautions/Isolations: Contact Isolation, Droplet Isolation, Fall Prevention Referral Physician: Alexys Reason for Referral: Evaluation/Treatment Medical History Pertinent Medical History: DM, Dementia, HTN Current History ER secondary to weakness, cough, SOA and spouse unable to care for patient Reviewed History: Yes Social History Current Living Status: Spouse Prior Prior Level of Function SCALE: Activities may be completed with or without assistive devices. 9-Cffesenvse-wssdnew completes the activity by him/herself with no assistance from a helper. 5-Set-up or Clean-up Assistance-helper sets up or cleans up; patient completes activity. [place] assists only prior to or following the activity. 4-Supervision or Touching Assistance-helper provides verbal cues and/or touching/steadying and/or contact guard assistance as patient completes activity. Assistance may be provided throughout the activity or intermittently. 3-Partial/Moderate Assistance-helper does LESS THAN HALF the effort. [place] lifts, holds or supports trunk or limbs, but provides less than half the effort. 2-Substantial/Maximal Assistance-helper does MORE THAN HALF the effort. [place] lifts or holds trunk or limbs and provides more than half the effort. 3-Fwxqrmarn-lzeezp does ALL the effort. Patient does none of the effort to complete the activity. Or, the assistance of 2 or more helpers is required for the patient to complete the activity. If activity was not attempted, code reason: 7-Patient Refused. 9-Not Applicable-not attempted and the patient did not perform the activity before the current illness, exacerbation or injury. 10-Not Attempted due to Environmental Limitations-(lack of equipment, weather restraints, etc.). 88-Not Attempted due to Medical Conditions or Safety Concerns. unable to determine patient's PLOF due to severe dementia PT Evaluation-Current Objective Patient Orientation: Confused (combative/resistive) Attachments: IV ROM/Strength ROM Lower Extremities bilateral LE WFL Strength Lower Extremities 4/5 grossly bilateral LE (no formal testing, however, patient very resistive with all mobility. He appears very strong) Integumentary/Posture Bowel Incontinence: Yes Bladder Incontinence: Yes Neuromuscular (Tone, Coordination, Reflexes) diminished coordination Sensory Vision: Unable to Assess Hearing: Unable to Assess Transfers Sit to Lying (QC): 1 (x 2) Lying to Sitting/Side of Bed(Q: 1 (x 2) Sit to Stand (QC): 1 Gait Does the Patient Walk?: No and Walking Goal IS indicated Balance Sitting Static: Fair Sitting Dynamic: Fair Standing Static: Poor Standing Dynamic: Poor Assessment/Needs Patient is currently severely demented and unable to follow simple direction. Patient not safe for OOB activity. He is combative and resistive with all mobility. Incontinent BM and urine requiring dependent assist to cleanse and change bedding and clothing. Nursing present and assisting. Rehab Potential: Guarded PT Half-Way Goals Half-Way Goals PT Integration Aide Goals Time Frame: Apr 27, 2022 Roll Left & Right (QC): 3 Sit to Lying (QC): 3 Lying-Sitting on Side/Bed(QC): 3 Sit to Stand (QC): 3 Chair/Hft-yx-Hflnd Xfer(QC): 3 Toilet Transfer (QC): 3 Walk 10 feet (QC): 3 PT Plan Problem List Problem List: Activity Tolerance, Functional Strength, Safety, Balance, Gait, Transfer, Bed Mobility Treatment/Plan Treatment Plan: Continue Plan of Care Treatment Plan: Bed Mobility, Education, Functional Activity Moy, Functional Strength, Gait, Safety, Therapeutic Exercise, Transfers Treatment Duration: Apr 27, 2022 Frequency: 5 times per week Estimated Hrs Per Day: .25 hour per day Discharge Recommendations Therapy Discharge Recommendati: Other, See Comments (long term facility) Time/GCodes Time In: 1015 Time Out: 1033 Total Billed Treatment Time: 18 Total Billed Treatment 1 visit [facility] 18 min MANUEL GARCIA PT Apr 05, 2022 11:00
--- NOTE | 2022-04-05 11:34 | Occupational Therapy Eval ---
OT Evaluation-General/PLF Medical Diagnosis Admission Date Apr 04, 2022 at 12:31 Medical Diagnosis: Covid Onset Date: Apr 04, 2022 Therapy Diagnosis Therapy Diagnosis: decreased ADL status Precautions Precautions/Isolations: Contact Isolation, Droplet Isolation, Fall Prevention Referral Physician: Alexys Referral Reason: Evaluation/Treatment Medical History Pertinent Medical History: DM, Dementia, HTN Additional Medical History dementia, HTN Current History Presents to ED with weakness. Social History Current Living Status: Spouse ADL-Prior Level of Function SCALE: Activities may be completed with or without assistive devices. 8-Iytykzpgow-fkieuai completes the activity by him/herself with no assistance from a helper. 5-Set-up or Clean-up Assistance-helper sets up or cleans up; patient completes activity. [place] assists only prior to or following the activity. 4-Supervision or Touching Assistance-helper provides verbal cues and/or touching/steadying and/or contact guard assistance as patient completes activity. Assistance may be provided throughout the activity or intermittently. 3-Partial/Moderate Assistance-helper does LESS THAN HALF the effort. [place] lifts, holds or supports trunk or limbs, but provides less than half the effort. 2-Substantial/Maximal Assistance-helper does MORE THAN HALF the effort. [place] lifts or holds trunk or limbs and provides more than half the effort. 7-Psalovifk-whptvi does ALL the effort. Patient does none of the effort to complete the activity. Or, the assistance of 2 or more helpers is required for the patient to complete the activity. If activity was not attempted, code reason: 7-Patient Refused. 9-Not Applicable-not attempted and the patient did not perform the activity before the current illness, exacerbation or injury. 10-Not Attempted due to Environmental Limitations-(lack of equipment, weather restraints, etc.). 88-Not Attempted due to Medical Conditions or Safety Concerns. ADL PLOF Comments Pt unable to provide information about PLOF. Per nurse, indicates pt was able to ambulate independently and didn't have any memory deficits, although pt has history of dementia. PLOF unknown. Self Care: Unknown Functional Cognition: Unknown OT Current Status Subjective Pt in bed, mumbles throughout session. Mental Status/Objective Patient Orientation: Confused, Mumbles Current Upper Extremity ROM WFL AAROM BUEs. Upper Extremity Strength unable to formally assess due to difficulty following directions. ADL-Treatment Eating (QC): 2 (Pt requires feeding assistance per nursing.) Lower Body Dressing (QC): 1 (Per clinical judgment.) Toileting Hygiene (QC): 1 (Per clinical judgment and PT report.) Other Treatments Pt in bed, mumbles throughout session, but appears to be agreeable to OT tx. Pt unsafe for OOB activities due to confusion and reports of being resistive/combative with PT/RN earlier today. Pt able to complete AAROM x10 reps each of the following BUES: shoulder flexion, elbow flexion/extension, front punch. These were complete in order to increase BUE strength and activity tolerance, pt required hand over hand assistance for correct movements. Post tx, pt in bed, call light in reach and alln eeds met, bed alarm activated. Education OT Patient Education: Correct positioning, Energy conservation, Modified ADL techniques, Progress toward Goal/Update tx plan, Purpose of tx/functional activities, Rehab process Teaching Recipient: Patient Teaching Methods: Discussion Response to Teaching: Verbalize Understanding OT Electrical Maintenance Worker Goals Electrical Maintenance Worker Goals Time Frame: Apr 19, 2022 Eating (QC): 5 Oral Hygiene (QC): 4 Toileting Hygiene (QC): 3 Shower/Bathe Self (QC): 3 Upper Body Dressing (QC): 4 Lower Body Dressing (QC): 3 On/Off Footwear (QC): 3 Additional Goals: 1-Demonstrate ADL Tasks, 2-Verbalize Understanding, 3- ImproveStrength/Moy 1=Demonstrate adherence to instructed precautions during ADL tasks. 2=Patient will verbalize/demonstrate understanding of assistive devices/modifications for ADL. 3=Patient will improve strength/tolerance for activity to enable patient to perform ADL's. OT Education/Plan Problem List/Assessment Assessment: Decreased Activ Tolerance, Decreased Safety Aware, Decreased UE Strength, Dependent Transfers, Impaired Bed Mobility, Impaired Cognition, Impaired Coordination, Impaired Funct Balance, Impaired I ADL's, Impaired Self- Care Skills Discharge Recommendations Plan/Recommendations: Continue POC Treatment Plan/Plan of Care Patient would benefit from OT for education, treatment and training to promote independence in ADL's, mobility, safety and/or upper extremity function for ADL's. Plan of Care: ADL Retraining, Functional Mobility, UE Funct Exercise/Act Treatment Duration: Apr 19, 2022 Frequency: 3 times per week (3-5 times per week.) Rehab Potential: Guarded Time/GCodes Start Time: 11:04 Stop Time: 11:12 Total Time Billed (hr/min): 8 Billed Treatment Time 1, ARIANA MICHAELS OT Apr 05, 2022 11:34
--- NOTE | 2022-04-05 11:40 | Progress Note - Hospitalist ---
Subjective HPI/CC On Admission Date Seen by Provider: Apr 05, 2022 Patient is a 76-year-old male with past medical history of dementia, hypertension who presented to the emergency department due to weakness. When asked how he is feeling he states "I am going to go get some gas in my car." He is unable to provide me any other history. All history is obtained from records. Per their notes he presented with weakness and fatigue after testing positive for COVID today. He has been having a cough and shortness of breath over the past week. His weakness worsened over the past 2 days and was unable to get out of bed. He has been not eating or drinking very much either. He lives at home with his and she is unable to care for him anymore due to the weakness. Apparently he was more confused than normal today as well. Subjective/Events-last exam Pt remains confused. Shook head no when asked if he need anything. Rn reports he got up with therapy to edge of bed. Focused Exam Lactate Level 04/04/22 11:20: Lactic Acid Level 0.79 Objective Exam Vital Signs Vital Signs Date Time Temp Pulse Resp B/P (MAP) Pulse Ox O2 Delivery O2 Flow Rate FiO2 04/05/22 08:00 37.7 84 18 111/63 (79) 95 Room Air Capillary Refill : General Appearance: No Apparent Distress, Chronically ill Respiratory: Lungs Clear, No Respiratory Distress Cardiovascular: Regular Rate, Rhythm, No Murmur Neurologic/Psychiatric: Alert, Disoriented Results/Procedures Lab Laboratory Tests 04/05/22 05:44 Patient resulted labs reviewed. Imaging: Reviewed Imaging Report Assessment/Plan Assessment and Plan Assess & Plan/Chief Complaint Debility due to COVID19 Not hypoxic no indication for decadron Paxlovid started yesterday, discussed EUA status with who agreed with treatment PT/OT IVF Tylenol prn fevers Robitussin for cough No further abx as not indication of bacterial illness Dementia Reorient as needed Resume home meds HTN BP soft so hold home meds DVT ppx: Lovenox Diagnosis/Problems Diagnosis/Problems (1) Weakness Status: Acute (2) Hypotension Status: Acute (3) COVID-19 Status: Acute (4) Dementia Status: Chronic (5) Pancytopenia Status: Acute (6) HTN (hypertension) Status: Chronic MIGUE ROGERS MD Apr 05, 2022 11:40
[2022-04-05] MEDS ORDERED: MEMANTINE 10 MG (NAMENDA) TABLET PO NR (11:45)
[2022-04-05] MEDS ORDERED: LORATADINE (CLARITIN) 10 MG TAB PO NR (11:45)
[2022-04-05 12:00] VITALS: BP 122/67
[2022-04-05 12:30] VITALS: BP 147/90
[2022-04-05] MEDS ORDERED: ACETAMINOPHEN 500 MG TAB (TYLENOL) ONE (12:57)
[2022-04-05] MEDS: ACETAMINOPHEN 500 MG TAB (TYLENOL) PO PRN ×2 (13:08→18:00)
[2022-04-05] MEDS: ENOXAPARIN 40 MG/0.4 ML (LOVENOX) SYR SC SCH (15:02)
[2022-04-05 15:10] VITALS: BP 110/73
[2022-04-05 20:34] VITALS: BP 113/71
[2022-04-05] MEDS: MEMANTINE 10 MG (NAMENDA) TABLET PO SCH (20:39)
[2022-04-05] MEDS: DONEPEZIL 10 MG (ARICEPT) TAB PO SCH (20:39)
[2022-04-05] MEDS: MELATONIN 3 MG TABLET PO PRN (20:39)
[2022-04-06] VITALS (8 sets, daily range): BP systolic 95–146; BP diastolic 63–79
[2022-04-06] MEDS: guaiFENesin SYRUP 100 MG/5 ML 10 ML (ROBITUSSIN SF) PO SCH ×7 (00:14→22:33)
[2022-04-06] MEDS: NS IV 1000 ML 1,000 ML IV SCH ×3 (06:25→22:33)
[2022-04-06] MEDS: NIRMATRELVIR/RITONAVIR (PAXLOVID) TABLET PO SCH (06:26)
[2022-04-06] MEDS: LORATADINE (CLARITIN) 10 MG TAB PO SCH (09:06)
[2022-04-06] MEDS: MEMANTINE 10 MG (NAMENDA) TABLET PO SCH ×2 (09:06→20:39)
[2022-04-06 09:12] LABS: POTASSIUM 3.8 MMOL/L (3.6-5.0)
[2022-04-06 09:13] LABS: HEMOGLOBIN 12.5 g/dL (13.3-17.7)
[2022-04-06 09:14] LABS: CALCIUM 8.5 MG/DL (8.5-10.1); MEAN PLATELET VOLUME 12.8 fL (9.0-12.2); WHITE BLOOD COUNT 16.6 10^3/uL (4.3-11.0)
[2022-04-06 09:18] LABS: CREATININE SERUM 2.21 MG/DL (0.60-1.30)
--- NOTE | 2022-04-06 12:00 | Progress Note - Hospitalist ---
Subjective HPI/CC On Admission Date Seen by Provider: Apr 06, 2022 Patient is a 76-year-old male with past medical history of dementia, hypertension who presented to the emergency department due to weakness. When asked how he is feeling he states "I am going to go get some gas in my car." He is unable to provide me any other history. All history is obtained from records. Per their notes he presented with weakness and fatigue after testing positive for COVID today. He has been having a cough and shortness of breath over the past week. His weakness worsened over the past 2 days and was unable to get out of bed. He has been not eating or drinking very much either. He lives at home with his and she is unable to care for him anymore due to the weakness. Apparently he was more confused than normal today as well. Subjective/Events-last exam Pt more alert today. States he is "doing alright" but did not answer any other questions. Focused Exam Lactate Level 04/04/22 11:20: Lactic Acid Level 0.79 Objective Exam Vital Signs Vital Signs Date Time Temp Pulse Resp B/P (MAP) Pulse Ox O2 Delivery O2 Flow Rate FiO2 04/06/22 08:55 94 Room Air 04/06/22 08:27 37.2 94 18 146/74 (98) Capillary Refill : General Appearance: No Apparent Distress, Chronically ill, Obese Respiratory: No Accessory Muscle Use, Rhonci; No Wheezing Cardiovascular: Regular Rate, Rhythm, No Murmur Gastrointestinal: Normal Bowel Sounds, Non Tender, Soft Neurologic/Psychiatric: Alert, Oriented x3 Results/Procedures Lab Laboratory Tests 04/06/22 08:49 Patient resulted labs reviewed. Imaging: Reviewed Imaging Report Assessment/Plan Assessment and Plan Assess & Plan/Chief Complaint Debility due to COVID19 Not hypoxic no indication for decadron Paxlovid PT/OT MAT protocol IS Repeat CXR Tylenol prn fevers Robitussin for cough Dementia Reorient as needed Continue home meds HTN BP swell controlled DVT ppx: Lovenox Diagnosis/Problems Diagnosis/Problems (1) Weakness Status: Acute (2) Hypotension Status: Acute (3) COVID-19 Status: Acute (4) Dementia Status: Chronic (5) Pancytopenia Status: Acute (6) HTN (hypertension) Status: Chronic MIGUE ROGERS MD Apr 06, 2022 12:00
--- NOTE | 2022-04-06 13:54 | Diagnostic Imaging Report ---
EXAMINATION: Chest 1 view HISTORY: Cough COMPARISON: 04/04/2022 FINDINGS: There is mild bibasilar atelectasis. There is volume loss and a pneumothorax. Heart size is mildly enlarged. No pleural effusion. No pneumothorax. IMPRESSION: 1. Mild bibasilar atelectasis. Dictated by: Dictated on workstation # [id number]
[2022-04-06] MEDS: cefTRIAXone 1 GM PRE-MIX 50 ML IV SCH (14:44)
[2022-04-06] MEDS: ENOXAPARIN 40 MG/0.4 ML (LOVENOX) SYR SC SCH (15:27)
[2022-04-06 15:38] LABS: BILIRUBIN,URINE NEGATIVE (NEGATIVE); CLARITY,URINE CLOUDY; COLOR,URINE YELLOW; GLUCOSE, URINE (UA) NEGATIVE (NEGATIVE); KETONES,URINE NEGATIVE (NEGATIVE); LEUKOCYTE ESTERASE ,URINE NEGATIVE (NEGATIVE); NITRITE,URINE NEGATIVE (NEGATIVE); PH,URINE 5.5 (5-9); PROTEIN,URINE 2+ (NEGATIVE)
[2022-04-06 15:48] LABS: BACTERIA,URINE NEGATIVE /HPF; SQUAMOUS EPITHELIAL CELL,UR RARE /HPF
[2022-04-06 15:49] LABS: AMORPHOUS SEDIMENT,UR LARGE AMOR URATES /LPF
[2022-04-06] MEDS: DONEPEZIL 10 MG (ARICEPT) TAB PO SCH (20:39)
[2022-04-07 03:50] VITALS: BP 136/67
[2022-04-07] MEDS: guaiFENesin SYRUP 100 MG/5 ML 10 ML (ROBITUSSIN SF) PO SCH ×6 (04:00→23:25)
[2022-04-07 05:54] LABS: HEMATOCRIT 39 % (40-54); HEMOGLOBIN 12.8 g/dL (13.3-17.7); MEAN CORPUSCULAR HEMOGLOBIN 33 pg (25-34); MEAN CORPUSCULAR HGB CONC 33 g/dL (32-36); MEAN CORPUSCULAR VOLUME 99 fL (80-99); MEAN PLATELET VOLUME 12.3 fL (9.0-12.2); PLATELET COUNT 84 10^3/uL (130-400); WHITE BLOOD COUNT 12.8 10^3/uL (4.3-11.0)
[2022-04-07 06:12] LABS: CALCIUM 8.5 MG/DL (8.5-10.1); CREATININE SERUM 1.15 MG/DL (0.60-1.30); POTASSIUM 3.3 MMOL/L (3.6-5.0)
[2022-04-07 08:00] VITALS: BP 102/64
[2022-04-07] MEDS: MEMANTINE 10 MG (NAMENDA) TABLET PO SCH ×2 (08:55→21:20)
[2022-04-07] MEDS: LORATADINE (CLARITIN) 10 MG TAB PO SCH (08:55)
[2022-04-07] MEDS: ACETAMINOPHEN 500 MG TAB (TYLENOL) PO PRN (09:01)
[2022-04-07] MEDS: RT-ALBUTEROL HFA 8.5 GM INHALER IH PRN (09:42)
[2022-04-07] MEDS: NS IV 1000 ML 1,000 ML IV SCH (10:58)
[2022-04-07] MEDS: NIRMATRELVIR/RITONAVIR (PAXLOVID) TABLET PO SCH ×2 (11:01→21:24)
--- NOTE | 2022-04-07 11:02 | Progress Note - Hospitalist ---
Subjective HPI/CC On Admission Date Seen by Provider: Apr 07, 2022 Patient is a 76-year-old male with past medical history of dementia, hypertension who presented to the emergency department due to weakness. When asked how he is feeling he states "I am going to go get some gas in my car." He is unable to provide me any other history. All history is obtained from records. Per their notes he presented with weakness and fatigue after testing positive for COVID today. He has been having a cough and shortness of breath over the past week. His weakness worsened over the past 2 days and was unable to get out of bed. He has been not eating or drinking very much either. He lives at home with his and she is unable to care for him anymore due to the weakness. Apparently he was more confused than normal today as well. Subjective/Events-last exam Pt reports feeling better today. No complaints. States it is hot in his room but no other concerns. Would like to get to the chair later today. Focused Exam Lactate Level 04/04/22 11:20: Lactic Acid Level 0.79 04/06/22 14:40: Lactic Acid Level 1.06 Objective Exam Vital Signs Vital Signs Date Time Temp Pulse Resp B/P (MAP) Pulse Ox O2 Delivery O2 Flow Rate FiO2 04/07/22 09:43 95 Room Air 04/07/22 08:00 35.7 87 19 102/64 (77) Capillary Refill : General Appearance: No Apparent Distress, Chronically ill Respiratory: Lungs Clear, No Respiratory Distress Cardiovascular: Regular Rate, Rhythm, No Murmur Neurologic/Psychiatric: Alert, Oriented x3 (major details) Results/Procedures Lab Laboratory Tests 04/07/22 05:44 Patient resulted labs reviewed. Imaging: Reviewed Imaging Report Assessment/Plan Assessment and Plan Assess & Plan/Chief Complaint Debility due to COVID19 Not hypoxic no indication for decadron Paxlovid (held last nights dose due to renal function) PT/OT MAT protocol IS CXR with atelectasis Tylenol prn fevers Robitussin for cough Rocephin added for incresing leukocytosis and concern for secondary bacterial pna Dementia Reorient as needed Continue home meds Mentation much improved today DHRUV- now resolved Urinary retention Bladder scan BID Straight cath for >300ml FLomax added HTN BP well controlled DVT ppx: Lovenox Diagnosis/Problems Diagnosis/Problems (1) Weakness Status: Acute (2) Hypotension Status: Acute (3) COVID-19 Status: Acute (4) Dementia Status: Chronic (5) Pancytopenia Status: Acute (6) HTN (hypertension) Status: Chronic MIGUE ROGERS MD Apr 07, 2022 11:02
[2022-04-07 12:27] VITALS: BP 103/65
[2022-04-07] MEDS: cefTRIAXone 1 GM PRE-MIX 50 ML IV SCH (15:25)
[2022-04-07] MEDS: ENOXAPARIN 40 MG/0.4 ML (LOVENOX) SYR SC SCH (15:26)
[2022-04-07 16:24] VITALS: BP 161/75
[2022-04-07] MEDS: TAMSULOSIN 0.4 MG (FLOMAX) CAP PO SCH (17:26)
[2022-04-07 20:28] VITALS: BP 148/69
[2022-04-07] MEDS: DONEPEZIL 10 MG (ARICEPT) TAB PO SCH (21:20)
[2022-04-07 23:23] VITALS: BP 157/72
[2022-04-08] MEDS: guaiFENesin SYRUP 100 MG/5 ML 10 ML (ROBITUSSIN SF) PO SCH ×6 (03:12→21:37)
[2022-04-08 06:49] LABS: HEMOGLOBIN 12.6 g/dL (13.3-17.7); MEAN PLATELET VOLUME 12.1 fL (9.0-12.2); WHITE BLOOD COUNT 6.3 10^3/uL (4.3-11.0)
[2022-04-08 07:01] LABS: POTASSIUM 3.1 MMOL/L (3.6-5.0)
[2022-04-08 07:02] LABS: CALCIUM 8.5 MG/DL (8.5-10.1)
[2022-04-08 07:06] LABS: CREATININE SERUM 0.8 MG/DL (0.60-1.30)
[2022-04-08 08:00] VITALS: BP 169/80
[2022-04-08] MEDS ORDERED: MELO7.5T46 PO (09:05)
[2022-04-08] MEDS ORDERED: CNC1KV IM (09:05)
--- NOTE | 2022-04-08 09:05 | Physical Therapy Daily Note ---
PT Daily Note-Current Subjective Patient in bed pre tx, both legs hanging off the side of the bed, patient voices no complaints of pain. Nurse aide will assist PT. Appearance Patient in recliner post tx with chair alarm on, air cushion in chair, will continue with OT at this time. Mental Status Patient Orientation: Person, Confused Transfers SCALE: Activities may be completed with or without assistive devices. 8-Jlsllbgvcp-desqeat completes the activity by him/herself with no assistance from a helper. 5-Set-up or Clean-up Assistance-helper sets up or cleans up; patient completes activity. [place] assists only prior to or following the activity. 4-Supervision or Touching Assistance-helper provides verbal cues and/or touching/steadying and/or contact guard assistance as patient completes activity. Assistance may be provided throughout the activity or intermittently. 3-Partial/Moderate Assistance-helper does LESS THAN HALF the effort. [place] lifts, holds or supports trunk or limbs, but provides less than half the effort. 2-Substantial/Maximal Assistance-helper does MORE THAN HALF the effort. [place] lifts or holds trunk or limbs and provides more than half the effort. 1-Etixcsvrs-jdmhvn does ALL the effort. Patient does none of the effort to complete the activity. Or, the assistance of 2 or more helpers is required for the patient to complete the activity. If activity was not attempted, code reason: 7-Patient Refused. 9-Not Applicable-not attempted and the patient did not perform the activity before the current illness, exacerbation or injury. 10-Not Attempted due to Environmental Limitations-(lack of equipment, weather restraints, etc.). 88-Not Attempted due to Medical Conditions or Safety Concerns. Roll Left & Right (QC): 1 Lying to Sitting/Side of Bed(Q: 1 Sit to Stand (QC): 1 Chair/Vvn-ta-Epxsk Xfer(QC): 1 Patient has had a BM in bed, dependent for rolling and nurse aide cleans patient. Patient has to roll a couple of times each way for cleaning and getting new brief on. Dependent for supine to sit. Attempted to stand using RW but patient leans heavily forward and therapist has to sit patient back on bed or he would have just fallen forward onto his face. Dependent stand pivot transfer to recliner. Treatments cleaning, transfers, bed mobility Assessment Current Status: Poor Progress Patient is very confused, dependent for all mobility at this time. PT Gear Finisher Goals Mcc Goals PT Mcc Goals Time Frame: Apr 27, 2022 Roll Left & Right (QC): 3 Sit to Lying (QC): 3 Lying-Sitting on Side/Bed(QC): 3 Sit to Stand (QC): 3 Chair/Xrd-te-[place] Xfer(QC): 3 Toilet Transfer (QC): 3 Walk 10 feet (QC): 3 PT Plan Problem List Problem List: Activity Tolerance, Functional Strength, Safety, Balance, Gait, Transfer, Bed Mobility, ROM Treatment/Plan Treatment Plan: Continue Plan of Care Treatment Plan: Bed Mobility, Education, Functional Activity Moy, Functional Strength, Gait, Safety, Therapeutic Exercise, Transfers Treatment Duration: Apr 27, 2022 Frequency: 5 times per week Estimated Hrs Per Day: .25 hour per day Safety Risks/Education Patient Education: Transfer Techniques, Correct Positioning, Safety Issues Teaching Recipient: Patient Teaching Methods: Demonstration, Discussion Response to Teaching: Reinforcement Needed Time/GCodes Time In: 0833 Time Out: 0847 Total Billed Treatment Time: 14 Total Billed Treatment 1 visit [facility] JOSE SHIPLEY PT Apr 08, 2022 09:05
--- NOTE | 2022-04-08 09:05 | Occupational Ther Daily Note ---
OT Current Status-Daily Note Subjective Pt at EOB with PT upon OT arrival, agreeable to OT Tx. Pt mumbles throughout tx making it difficult to understand what he was saying. Mental Status/Objective Patient Orientation: Confused, Mumbles ADL-Treatment Therapy Code Descriptions/Definitions Functional [place] Measure: 0=Not Assessed/NA 4=Minimal Assistance 1=Total Assistance 5=Supervision or Setup 2=Maximal Assistance 6=Modified [place] 3=Moderate Assistance 7=Complete IndependenceSCALE: Activities may be completed with or without assistive devices. 0-Ufnbubymhe-yceszye completes the activity by him/herself with no assistance from a helper. 5-Set-up or Clean-up Assistance-helper sets up or cleans up; patient completes activity. [place] assists only prior to or following the activity. 4-Supervision or Touching Assistance-helper provides verbal cues and/or touching/steadying and/or contact guard assistance as patient completes activity. Assistance may be provided throughout the activity or intermittently. 3-Partial/Moderate Assistance-helper does LESS THAN HALF the effort. [place] lifts, holds or supports trunk or limbs, but provides less than half the effort. 2-Substantial/Maximal Assistance-helper does MORE THAN HALF the effort. [place] lifts or holds trunk or limbs and provides more than half the effort. 5-Gtmrhevwn-skdyeo does ALL the effort. Patient does none of the effort to complete the activity. Or, the assistance of 2 or more helpers is required for the patient to complete the activity. If activity was not attempted, code reason: 7-Patient Refused. 9-Not Applicable-not attempted and the patient did not perform the activity before the current illness, exacerbation or injury. 10-Not Attempted due to Environmental Limitations-(lack of equipment, weather restraints, etc.). 88-Not Attempted due to Medical Conditions or Safety Concerns. Eating (QC): 2 (Max A, assist cutting food, assist bringing food to mouth, cues to open mouth.) Lower Body Dressing (QC): 1 (Per PT report, total assist and assist x2 to change brief at bed level.) Toileting Hygiene (QC): 1 (Per PT report, pt was soiled and required total assist and assist x2 to complete hygiene and change brief.) Other Treatment Pt at EOB with PT upon OT arrival. Pt stood at FWW, pushing walker forward with feet behind him under the bed, leaning forward heavily. Pt sat back on EOB, assistance required to maintain sitting position, then SPT complete to recliner dependently. Pt required assistance to stand again in order to scoot back all the way into recliner. Pt's breakfast arrived, assistance provided to open containers and cut food. OT cued pt to take a drink of coffee, but he required hand over hand assistance, verbal and tactile cues in order to grasp mug and bring to his mouth to take a drink. Pt attempted to bring gait belt to his mouth as food, requiring redirection. OT assisted pt with eating a few bites of his pancake, pt able to open mouth and chew/swallow food after food was presented. Pt grasped his gown and brought to his mouth as a napkin. Post tx, pt in recliner, call light in reach and all needs met, chair alarm activated. Nurse aide present to continue with feeding assistance. Education OT Patient Education: Correct positioning, Energy conservation, Modified ADL techniques, Progress toward Goal/Update tx plan, Purpose of tx/functional activities, Rehab process Teaching Recipient: Patient Teaching Methods: Discussion Response to Teaching: Verbalize Understanding OT Candy Spreader Helper Goals Candy Spreader Helper Goals Time Frame: Apr 19, 2022 Eating (QC): 5 Oral Hygiene (QC): 4 Toileting Hygiene (QC): 3 Shower/Bathe Self (QC): 3 Upper Body Dressing (QC): 4 Lower Body Dressing (QC): 3 On/Off Footwear (QC): 3 Additional Goals: 1-Demonstrate ADL Tasks, 2-Verbalize Understanding, 3- ImproveStrength/Moy 1=Demonstrate adherence to instructed precautions during ADL tasks. 2=Patient will verbalize/demonstrate understanding of assistive devices/modifications for ADL. 3=Patient will improve strength/tolerance for activity to enable patient to perform ADL's. OT Education/Plan Problem List/Assessment Assessment: Decreased Activ Tolerance, Decreased Safety Aware, Decreased UE Strength, Dependent Transfers, Impaired Cognition, Impaired Coordination, Impaired Funct Balance, Impaired I ADL's, Impaired Self-Care Skills Discharge Recommendations Plan/Recommendations: Continue POC Treatment Plan/Plan of Care Patient would benefit from OT for education, treatment and training to promote independence in ADL's, mobility, safety and/or upper extremity function for ADL's. Plan of Care: ADL Retraining, Functional Mobility, UE Funct Exercise/Act Treatment Duration: Apr 19, 2022 Frequency: 3 times per week (3-5 times per week.) Rehab Potential: Guarded Time/GCodes Start Time: 08:41 Stop Time: 08:57 Total Time Billed (hr/min): 16 Billed Treatment Time 1, ADL ARIANA TEIXEIRA OT Apr 08, 2022 09:05
[2022-04-08] MEDS: NIRMATRELVIR/RITONAVIR (PAXLOVID) TABLET PO SCH ×2 (11:47→21:23)
[2022-04-08] MEDS: LORATADINE (CLARITIN) 10 MG TAB PO SCH (11:48)
[2022-04-08] MEDS: MEMANTINE 10 MG (NAMENDA) TABLET PO SCH ×2 (11:48→21:22)
[2022-04-08 15:30] VITALS: BP 159/75
[2022-04-08] MEDS: cefTRIAXone 1 GM PRE-MIX 50 ML IV SCH (15:36)
[2022-04-08] MEDS: ENOXAPARIN 40 MG/0.4 ML (LOVENOX) SYR SC SCH (15:36)
--- NOTE | 2022-04-08 16:47 | Progress Note - Hospitalist ---
Subjective HPI/CC On Admission Date Seen by Provider: Apr 08, 2022 Time Seen by Provider: 10:55 Patient is a 76-year-old male with past medical history of dementia, hypertension who presented to the emergency department due to weakness. When asked how he is feeling he states "I am going to go get some gas in my car." He is unable to provide me any other history. All history is obtained from records. Per their notes he presented with weakness and fatigue after testing positive for COVID today. He has been having a cough and shortness of breath over the past week. His weakness worsened over the past 2 days and was unable to get out of bed. He has been not eating or drinking very much either. He lives at home with his and she is unable to care for him anymore due to the weakness. Apparently he was more confused than normal today as well. Subjective/Events-last exam He is feeling better. He denies shortness of breath. He denies pain. He has no complaints. Focused Exam Lactate Level 04/06/22 14:40: Lactic Acid Level 1.06 Objective Exam Vital Signs Vital Signs Date Time Temp Pulse Resp B/P (MAP) Pulse Ox O2 Delivery O2 Flow Rate FiO2 04/08/22 08:00 36.9 82 19 169/80 (109) 98 Room Air Capillary Refill : General Appearance: No Apparent Distress, WD/WN Respiratory: Lungs Clear, No Respiratory Distress Cardiovascular: Regular Rate, Rhythm, No Murmur Gastrointestinal: Normal Bowel Sounds, Soft Extremity: Normal Inspection, No Pedal Edema Neurologic/Psychiatric: Alert, Normal Mood/Affect Results/Procedures Lab Laboratory Tests 04/08/22 06:24 Patient resulted labs reviewed. Imaging: Reviewed Imaging Report Assessment/Plan Assessment and Plan Assess & Plan/Chief Complaint Debility due to COVID19 Pneumonia Not hypoxic no indication for decadron Paxlovid (held last nights dose due to renal function) PT/OT MAT protocol IS CXR with atelectasis Tylenol prn fevers Robitussin for cough Continue Rocephin Swing bed evaluation Will likely need SNF on discharge Dementia Reorient as needed Continue home meds Urinary retention Bladder scan BID Straight cath for >300ml FLomax added HTN BP well controlled DVT ppx: Lovenox DHRUV, resolved Diagnosis/Problems Diagnosis/Problems (1) Debility Status: Acute (2) COVID-19 Status: Acute (3) Dementia Status: Chronic (4) PNA (pneumonia) Status: Acute BROCK FLAHERTY MD Apr 08, 2022 16:47
[2022-04-08] MEDS: TAMSULOSIN 0.4 MG (FLOMAX) CAP PO SCH (18:06)
[2022-04-08] MEDS: DONEPEZIL 10 MG (ARICEPT) TAB PO SCH (21:22)
[2022-04-09 00:23] VITALS: BP 155/74
[2022-04-09] MEDS: guaiFENesin SYRUP 100 MG/5 ML 10 ML (ROBITUSSIN SF) PO SCH ×3 (03:19→09:58)
[2022-04-09 08:00] VITALS: BP 115/85
--- NOTE | 2022-04-09 08:33 | Physical Therapy Daily Note ---
PT Daily Note-Current Subjective Patient in bed pre tx, laying on back with mouth wide open, gurgling/moaning like he is breathing through a mouthful of liquid. Appearance Patient in recliner post tx with nurse call, phone, tray, chair alarm on. Mental Status Patient Orientation: Person, Confused Transfers SCALE: Activities may be completed with or without assistive devices. 0-Yuwiabnert-asoliqc completes the activity by him/herself with no assistance from a helper. 5-Set-up or Clean-up Assistance-helper sets up or cleans up; patient completes activity. [place] assists only prior to or following the activity. 4-Supervision or Touching Assistance-helper provides verbal cues and/or touching/steadying and/or contact guard assistance as patient completes activit y. Assistance may be provided throughout the activity or intermittently. 3-Partial/Moderate Assistance-helper does LESS THAN HALF the effort. [place] lifts, holds or supports trunk or limbs, but provides less than half the effort. 2-Substantial/Maximal Assistance-helper does MORE THAN HALF the effort. [place] lifts or holds trunk or limbs and provides more than half the effort. 4-Akcittxcm-iivxhg does ALL the effort. Patient does none of the effort to complete the activity. Or, the assistance of 2 or more helpers is required for the patient to complete the activity. If activity was not attempted, code reason: 7-Patient Refused. 9-Not Applicable-not attempted and the patient did not perform the activity before the current illness, exacerbation or injury. 10-Not Attempted due to Environmental Limitations-(lack of equipment, weather restraints, etc.). 88-Not Attempted due to Medical Conditions or Safety Concerns. Roll Left & Right (QC): 1 Lying to Sitting/Side of Bed(Q: 1 Sit to Stand (QC): 1 Chair/Baw-yz-Hhkxw Xfer(QC): 2 Sat patient to the side of the bed and he appeared to swallow whatever was in his mouth, he didn't want to spit anything out on a paper towel and was no longer gurgling. Tried to get patient to stand with therapist assist and a rolling walker but he couldn't. Dependent therapist assist to stand and once he was standing he could assist slightly with the transfer to the recliner. Exercises attempted exercise but patient could not follow directions. Treatments bed mobility and transfers Assessment Current Status: Poor Progress still dependent for most mobility PT Underbaster Goals Fdc Goals PT Underbaster Goals Time Frame: Apr 27, 2022 Roll Left & Right (QC): 3 Sit to Lying (QC): 3 Lying-Sitting on Side/Bed(QC): 3 Sit to Stand (QC): 3 Chair/Nar-it-Gqlic Xfer(QC): 3 Toilet Transfer (QC): 3 Walk 10 feet (QC): 3 PT Plan Problem List Problem List: Activity Tolerance, Functional Strength, Safety, Balance, Gait, Transfer, Bed Mobility, ROM Treatment/Plan Treatment Plan: Continue Plan of Care Treatment Plan: Bed Mobility, Education, Functional Activity Moy, Functional Strength, Gait, Safety, Therapeutic Exercise, Transfers Treatment Duration: Apr 27, 2022 Frequency: 5 times per week Estimated Hrs Per Day: .25 hour per day Safety Risks/Education Patient Education: Transfer Techniques, Correct Positioning, Safety Issues Teaching Recipient: Patient Teaching Methods: Demonstration, Discussion Response to Teaching: Reinforcement Needed Time/GCodes Time In: 0803 Time Out: 0814 Total Billed Treatment Time: 11 Total Billed Treatment 1 visit FA 11JOSE MERCADO PT Apr 09, 2022 08:33
[2022-04-09] MEDS ORDERED: NS IV 500 ML 500 ML IV PRN (08:45)
[2022-04-09] MEDS ORDERED: KCL 20 MEQ TAB (K-DUR) PO SCH (08:45)
[2022-04-09] MEDS ORDERED: POTASSIUM CL 10MEQ/50ML IVPB 50 ML IV SCH (08:45)
[2022-04-09] MEDS ORDERED: MAGNESIUM 1 GM/100 ML IVPB 100 ML IV SCH (08:45)
[2022-04-09] MEDS: MEMANTINE 10 MG (NAMENDA) TABLET PO SCH (09:57)
[2022-04-09] MEDS: LORATADINE (CLARITIN) 10 MG TAB PO SCH (09:57)
[2022-04-09] MEDS: RT-ALBUTEROL HFA 8.5 GM INHALER IH PRN (09:59)
[2022-04-09 10:28] LABS: CALCIUM 8.5 MG/DL (8.5-10.1); CREATININE SERUM 0.75 MG/DL (0.60-1.30); MAGNESIUM 2.4 MG/DL (1.6-2.4); POTASSIUM 3.1 MMOL/L (3.6-5.0)
[2022-04-09] MEDS: NIRMATRELVIR/RITONAVIR (PAXLOVID) TABLET PO SCH (10:32)
[2022-04-09] MEDS ORDERED: KCL 20 MEQ TAB (K-DUR) PO ONE ×2 (11:00→12:00)
--- NOTE | 2022-04-09 16:30 | Discharge Summary ---
Discharge Summary Hospital Course Was the Problem List Reviewed?: Yes Problems/Dx: (1) Debility Status: Acute (2) COVID-19 Status: Acute (3) Dementia Status: Chronic (4) PNA (pneumonia) Status: Acute (5) Urinary retention Status: Acute Hospital Course Date of Admission: Apr 04, 2022 at 12:31 Admission Diagnosis: Debility due to COVID-19 Family Physician/Provider: Yusuf Disla DO Date of Discharge: 04/09/22 Discharge Diagnosis: Debility due to COVID-19, PNA, delirium on underlying dementia, urinary retention Hospital Course: Andrei Jonas is a 76 year old male with PMH HTN, dementia, who was admitted with debility due to COVID. He was treated with Paxlovid. He was started on PT/OT. He was found to be retaining urine and required intermittent straight cath. He was started on Flomax. He continued to retain urine and a mora catheter was placed. He had delirium on his underlying dementia, which was reportedly mild per his family and primary doctor. He was transitioned to swing bed for ongoing therapy needs. He remains on isolation. He will continue therapies. He will complete his Paxlovid this evening. He is also completing a course of antibiotics for secondary bacterial pneumonia. Labs and Pending Lab Test: Laboratory Tests 04/09/22 10:00: Sodium Level 147H, Potassium Level 3.1L, Chloride Level 109H, Carbon Dioxide Level 25, Anion Gap 13, Blood Urea Nitrogen 19H, Creatinine 0.75, Estimat Glomerular Filtration Rate 95, BUN/Creatinine Ratio 25, Glucose Level 95, Calcium Level 8.5, Magnesium Level 2.4 Microbiology 04/04/22 Blood Culture - Preliminary, Resulted No growth Home Meds Active Reported Cyanocobalamin Injection (Cyanocobalamin) 1,000 Mcg/Ml Inj 1,000 Mcg IM MONTHLY Meloxicam 7.5 Mg Tablet 7.5 Mg PO DAILY PRN Memantine HCl 10 Mg Tablet 10 Mg PO BID Amlodipine Besylate 10 Mg Tablet 10 Mg PO DAILY Donepezil HCl 10 Mg Tablet 10 Mg PO HS Lisinopril 20 Mg Tablet 20 Mg PO DAILY Assessment/Pt Instructions Discharged to swing bed Discharge Planning: >30 minutes discharge planning Discharge Instructions Discharge Diet: No Restrictions Activity as Tolerated: Yes Discharge Physical Examination Vital Signs Vital Signs Date Time Temp Pulse Resp B/P (MAP) Pulse Ox O2 Delivery O2 Flow Rate FiO2 04/09/22 10:30 80 94 21 04/09/22 10:30 Room Air 04/09/22 08:00 36.8 18 115/85 (95) General Appearance: No Apparent Distress, WD/WN HEENT: PERRL/EOMI, Pharynx Normal Respiratory: Lungs Clear, No Respiratory Distress Cardiovascular: Regular Rate, Rhythm, No Murmur Gastrointestinal: Normal Bowel Sounds, Soft Extremity: Normal Inspection, No Pedal Edema Neurologic/Psychiatric: Alert, Disoriented Allergies: Coded Allergies: oseltamivir (Verified Allergy, Intermediate, 10/15/21) DELIRIUM Copy Copies To 1: YUSUF DISLA DO Discharge Summary Date of Admission Apr 04, 2022 at 12:31 Date of Discharge Apr 09, 2022 at 12:13 Discharge Date: Apr 09, 2022 Discharge Time: 10:25 Admission Diagnosis Debility due to COVID19 Discharge Diagnosis Debility due to COVID19 Pneumonia Dementia Urinary retention HTN DHRUV (1) Debility Status: Acute (2) COVID-19 Status: Acute (3) Dementia Status: Chronic (4) PNA (pneumonia) Status: Acute BROCK FLAHERTY MD Apr 09, 2022 16:30
== END 2022-04-09 12:13 | disposition swing bed (61) | DRG 177 ==
LOC: EDUNIT# 10:46 → ER 10:47 → 4TH 12:31
PROVIDERS: ADMIT Family Medicine; ATTEND Internal Medicine
PROC: 8E0ZXY6 Isolation (ICD-10-PCS; principal; 2022-04-04)
DX: U07.1 COVID-19 (principal); J12.82 Pneumonia due to coronavirus disease 2019; J15.9 Unspecified bacterial pneumonia; F05 Delirium due to known physiological condition; D61.818 Other pancytopenia; N17.9 Acute kidney failure, unspecified; J98.11 Atelectasis; I95.9 Hypotension, unspecified; R53.1 Weakness; I10 Essential (primary) hypertension; F03.90 Unspecified dementia, unspecified severity, without behavioral disturbance, psychotic disturbance, mood disturbance, and anxiety; R33.9 Retention of urine, unspecified
CPT/HCPCS: 36415; 71045; 80048; 80053; 81000; 83605; 83690; 83735; 83880; 84145; 84484; 85007; 85027; 86141; 87040; 87636; 93005; 94010; 94640; 94760; 96374

== ENCOUNTER 2022-04-09 11:43 | Inpatient (IN) | payer MEDICARE, OTHER ==
[~2022-04-09] VITALS: Ht 172 cm; Wt 82.2 kg
[~2022-04-09 11:43] MED LIST changes: +CNC1KV IM; +MELO7.5T46 PO
[2022-04-09] MEDS ORDERED: HALOPERIDOL 5 MG/ML (HALDOL) VIAL IV PRN (12:15)
[2022-04-09] MEDS ORDERED: BENZONATATE 100 MG (TESSALON) CAPSULE PO PRN (12:15)
[2022-04-09] MEDS ORDERED: RELABEL FOR HOME USE MC SCH (12:15)
[2022-04-09] MEDS ORDERED: ANTACID SUSP 30 ML UDC (MYLANTA) PO PRN (12:15)
[2022-04-09] MEDS ORDERED: MELATONIN 3 MG TABLET PO PRN (12:15)
[2022-04-09] MEDS ORDERED: ACETAMINOPHEN 500 MG TAB (TYLENOL) PO PRN (12:15)
[2022-04-09] MEDS ORDERED: NS IV 500 ML 500 ML IV PRN (12:15)
[2022-04-09] MEDS ORDERED: ONDANSETRON 4 MG/2 ML (SDV) Z0FRAN IV PRN (12:15)
[2022-04-09] MEDS ORDERED: MILK OF MAGNESIA 400 MG/5 ML 30 ML UDC PO PRN (12:15)
[2022-04-09] MEDS ORDERED: RT-ALBUTEROL HFA 8.5 GM INHALER IH PRN (12:45)
--- NOTE | 2022-04-09 13:28 | Speech Therapy Progress Note ---
Therapy Progress Note Speech pathology has received the consultation for a clinical bedside swallowing evaluation. The patient's evaluation will be completed on 04/10/2022. Thank you for the consultation. GRACE TREVIÑO Apr 09, 2022 13:28
--- NOTE | 2022-04-09 13:45 | Occ Therapy Progress Note ---
Therapy Progress Note OT orders received for SWB admission. OT attempted evaluation at 1330, but pt too lethargic to participate in evaluation at this time. Pt kept eyes closed throughout visit, wouldn't answer questions, and wouldn't follow instructions. HOB at 70 degrees, lowered to 40 degrees for pt comfort. Pt began coughing/gargling on his own saliva, HOB raised to 50 degrees and pt appeared to be more comfortable, coughing less. Pt unable to participate in skilled OT intervention at this time, OT will attempt evaluation again tomorrow. 1, visit ARIANA TEIXEIRA OT Apr 09, 2022 13:45
[2022-04-09] MEDS ORDERED: LIDOCAINE UROJET 2% GEL 10 ML PKG TOP NR (14:00)
--- NOTE | 2022-04-09 14:08 | Physical Therapy Evaluation ---
PT Evaluation-General Medical Diagnosis Admission Date Apr 09, 2022 at 12:18 Medical Diagnosis: Covid Onset Date: Apr 04, 2022 Therapy Diagnosis Therapy Diagnosis: generalized weakness/debility Precautions Precautions/Isolations: Airborne Isolation, Contact Isolation, Droplet Isolation, Fall Prevention Referral Physician: Ritu Reason for Referral: Evaluation/Treatment Medical History Pertinent Medical History: DM, Dementia, HTN Current History transfer to [facility] due to Covid and severe debility Reviewed History: Yes Social History Home: Single Level Current Living Status: Spouse Prior Prior Level of Function SCALE: Activities may be completed with or without assistive devices. 3-Fiwwjsszzx-xmcsyyw completes the activity by him/herself with no assistance from a helper. 5-Set-up or Clean-up Assistance-helper sets up or cleans up; patient completes activity. [place] assists only prior to or following the activity. 4-Supervision or Touching Assistance-helper provides verbal cues and/or touching/steadying and/or contact guard assistance as patient completes activity. Assistance may be provided throughout the activity or intermittently. 3-Partial/Moderate Assistance-helper does LESS THAN HALF the effort. [place] lifts, holds or supports trunk or limbs, but provides less than half the effort. 2-Substantial/Maximal Assistance-helper does MORE THAN HALF the effort. [place] lifts or holds trunk or limbs and provides more than half the effort. 3-Ydmacmiqb-qdkytb does ALL the effort. Patient does none of the effort to complete the activity. Or, the assistance of 2 or more helpers is required for the patient to complete the activity. If activity was not attempted, code reason: 7-Patient Refused. 9-Not Applicable-not attempted and the patient did not perform the activity before the current illness, exacerbation or injury. 10-Not Attempted due to Environmental Limitations-(lack of equipment, weather restraints, etc.). 88-Not Attempted due to Medical Conditions or Safety Concerns. unable to determine due to severe dementia PT Evaluation-Current Subjective Patient is nonverbal on this date. Attempted to feed patient with patient pushing food away. Objective Patient Orientation: Confused, Listless ROM/Strength ROM Lower Extremities bilateral LE WFL Strength Lower Extremities 4-/5 grossly bilateral LE (no formal testing due to patient's inability to follow simple direction) Integumentary/Posture Integumentary refer to nursing notes Bowel Incontinence: Yes Bladder Incontinence: Yes Posture WFL Neuromuscular (Tone, Coordination, Reflexes) diminished coordination with noted increase resistance with all movement Sensory Vision: Unable to Assess Hearing: Functional Transfers Roll Left & Right (QC): 1 Sit to Lying (QC): 1 Lying to Sitting/Side of Bed(Q: 1 Sit to Stand (QC): 1 Chair/Xnl-he-Zahce Xfer(QC): 88 Toilet Transfer (QC): 88 Car Transfer (QC): 88 patient is very resistive with all mobility and becomes highly agitated with this task Gait Does the Patient Walk?: No and Walking Goal IS indicated Walk 10 feet (QC): 88 Walk 50 ft with 2 Turns(QC): 88 Walk 150 ft (QC): 88 Walking 10ft/uneven surface-QC: 88 Wheelchair Training Wheel 50 ft with 2 turns (QC): 9 Wheel 150 ft (QC): 9 Stairs 1 Step (curb) (QC): 88 4 Steps (QC): 88 12 Steps (QC): 9 Balance Sitting Static: Poor Sitting Dynamic: Poor Standing Static: Poor Standing Dynamic: Poor Picking up an Object (QC): 88 Treatment Attempted to perform sit to stand and transfer to recliner, however, patient is not safe at this time due to current status. RN notified. Assessment/Needs 76 y.o. male, will benefit from skilled PT to address functional strength and mobility to improve current LOF. Rehab Potential: Guarded PT Half-Way Goals Caul Dresser Goals PT Half-Way Goals Time Frame: May 11, 2022 Roll Left & Right (QC): 3 Sit to Lying (QC): 3 Lying-Sitting on Side/Bed(QC): 3 Sit to Stand (QC): 3 Chair/Hox-so-Lslqh Xfer(QC): 3 Toilet Transfer (QC): 3 Car Transfer (QC): 3 Does the Patient Walk: Yes Walk 10 feet (QC): 3 Walk 50ft with 2 Turns (QC): 3 Walk 150 ft (QC): 3 Walking 10ft on Uneven Surface: 3 1 Step (curb) (QC): 3 4 Steps (QC): 3 12 Steps (QC): 9 Picking up an Object (QC): 88 Wheel 50 feet with 2 turns (QC: 9 Wheel 150 feet: 9 PT Plan Problem List Problem List: Activity Tolerance, Functional Strength, Safety, Balance, Gait, Transfer, Bed Mobility Treatment/Plan Treatment Plan: Continue Plan of Care Treatment Plan: Bed Mobility, Education, Functional Activity Moy, Functional Strength, Gait, Safety, Therapeutic Exercise, Transfers Treatment Duration: May 11, 2022 Frequency: 6 times per week Estimated Hrs Per Day: .25 hour per day Time/GCodes Time In: 1230 Time Out: 1304 Total Billed Treatment Time: 34 Total Billed Treatment 1 visit EVModC 14 min FA 20 min MANUEL GARCIA PT Apr 09, 2022 14:08
[2022-04-09] MEDS ORDERED: cefTRIAXone 1 GM PRE-MIX 50 ML IV SCH (15:00)
[2022-04-09] MEDS: cefTRIAXone 1 GM PRE-MIX 50 ML IV SCH (15:24)
[2022-04-09] MEDS: ENOXAPARIN 40 MG/0.4 ML (LOVENOX) SYR SC SCH (15:24)
[2022-04-09] MEDS: guaiFENesin SYRUP 100 MG/5 ML 10 ML (ROBITUSSIN SF) PO SCH ×3 (15:24→22:32)
[2022-04-09 16:02] VITALS: BP 178/71
[2022-04-09] MEDS ORDERED: NIRMATRELVIR/RITONAVIR (PAXLOVID) TABLET PO SCH (18:00)
[2022-04-09] MEDS: TAMSULOSIN 0.4 MG (FLOMAX) CAP PO SCH (18:00)
--- NOTE | 2022-04-09 18:45 | Diagnostic Imaging Report ---
PROCEDURE: CT head wo r/o stroke. TECHNIQUE: Multiple contiguous axial images were obtained through the brain without the use of intravenous contrast. Auto Exposure Controls were utilized during the CT exam to meet ALARA standards for radiation dose reduction. INDICATION: Altered mental status COMPARISON: 10/13/2021 There is no evidence of acute hemorrhage. The ventricles and sulci are stable in size and configuration. There is continued mural thickening within right sphenoid sinus. This protrudes into the right nasal cavity. Paranasal sinuses are otherwise clear. IMPRESSION: No CT evidence of acute intracranial abnormality or significant adverse change. Dictated by: Dictated on workstation # [id number]
[2022-04-09 20:00] VITALS: BP 162/77
[2022-04-09 21:10] VITALS: BP 162/77
[2022-04-09] MEDS: DONEPEZIL 10 MG (ARICEPT) TAB PO SCH (22:32)
[2022-04-09] MEDS: MEMANTINE 10 MG (NAMENDA) TABLET PO SCH (22:32)
[2022-04-10] MEDS: guaiFENesin SYRUP 100 MG/5 ML 10 ML (ROBITUSSIN SF) PO SCH ×6 (03:00→22:30)
[2022-04-10] MEDS: KCL 20 MEQ TAB (K-DUR) PO SCH (07:34)
[2022-04-10] MEDS: POTASSIUM CL 10MEQ/50ML IVPB 50 ML IV SCH (07:34)
[2022-04-10] MEDS: MAGNESIUM 1 GM/100 ML IVPB 100 ML IV SCH (07:34)
[2022-04-10 08:00] VITALS: BP 122/82
[2022-04-10 08:27] LABS: POTASSIUM 3.1 MMOL/L (3.6-5.0)
[2022-04-10 08:28] LABS: CALCIUM 8.5 MG/DL (8.5-10.1)
[2022-04-10 08:33] LABS: CREATININE SERUM 0.7 MG/DL (0.60-1.30)
[2022-04-10 08:35] LABS: MAGNESIUM 2.4 MG/DL (1.6-2.4)
[2022-04-10] MEDS: LORATADINE (CLARITIN) 10 MG TAB PO SCH (09:00)
[2022-04-10 09:52] VITALS: BP 119/78
[2022-04-10 10:00] VITALS: BP 126/78
[2022-04-10] MEDS ORDERED: CATHETER FLUSH 10 ML SYR IV PRN (10:15)
[2022-04-10] MEDS ORDERED: NS 100 ML (IVPB) BAG IV ONE (10:15)
[2022-04-10] MEDS ORDERED: HOLD METFORMIN - RECEIVED CONTRAST 20 ML VIAL IV SCH (10:15)
[2022-04-10] MEDS ORDERED: IOHEXOL 350 MG/ML 100 ML (OMNIPAQUE 350) VIAL IV ONE (10:15)
--- NOTE | 2022-04-10 10:46 | Diagnostic Imaging Report ---
PROCEDURE: CT head and CT cervical spine without contrast. TECHNIQUE: Multiple contiguous axial images were obtained through the brain and cervical spine without the use of intravenous contrast. Sagittal and coronal reformations through the cervical spine were then performed. Auto Exposure Controls were utilized during the CT exam to meet ALARA standards for radiation dose reduction. INDICATION: Fall. Head and neck pain. COMPARISON: 04/09/2022. FINDINGS: CT HEAD: No large acute territorial ischemia, mass, or hemorrhage. No midline shift or mass effect. Decreased attenuation is seen in the periventricular and subcortical white matter. The ventricles and cortical sulci are prominent. The basilar cisterns are patent and unremarkable. The calvarium is intact. Retained secretions are seen in the right maxillary sinus. The mastoid air cells are clear. CT CERVICAL SPINE: No acute fracture or dislocation is seen in the cervical spine. No focal osseous lesions. Chronic height loss is seen in the C5 and C6 vertebral bodies. The craniocervical junction is well-maintained. Mild degenerative changes are seen in the cervical spine with disc osteophyte complexes and uncovertebral arthropathy. Soft tissues of the neck are unremarkable. The included lungs are clear. IMPRESSION: 1. No hemorrhage or focal intra-axial mass. No CT evidence of large acute territorial ischemia. 2. No acute fracture or dislocation in the cervical spine. 3. Paranasal sinus disease involving the right maxillary sinus. Dictated by: Dictated on workstation # [id number]
--- NOTE | 2022-04-10 10:55 | Diagnostic Imaging Report ---
PROCEDURE: CT chest, abdomen, and pelvis with contrast. TECHNIQUE: Multiple contiguous axial images were obtained through the chest, abdomen, and pelvis after the administration of intravenous contrast. Auto Exposure Controls were utilized during the CT exam to meet ALARA standards for radiation dose reduction. INDICATION: Altered mental status and Covid 19 positive. COMPARISON: No prior studies are available for comparison. FINDINGS: CT CHEST: No axillary lymphadenopathy is detected. No mediastinal or hilar lymphadenopathy is detected. No pericardial or pleural fluid is identified. No pulmonary infiltrates, nodules, or masses are seen. There is some minimal atelectasis or scarring in the left lower lobe as well as right middle lobe and lingula. IMPRESSION: Unremarkable CT of the chest. CT ABDOMEN AND PELVIS: No focal liver mass is detected. The gallbladder is unremarkable. No biliary duct dilatation is seen. The pancreas and spleen are unremarkable. No adrenal mass is detected. 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 There are 2 to 3 mm nonobstructing calculi in both kidneys. The aorta is heavily calcified but nonaneurysmal. The small and large bowel loops are of normal caliber. There is some circumferential thickening involving the rectum. Presacral edema or soft tissue density is noted. The bladder is decompressed by a Mccormick catheter. The prostate is unremarkable. No abdominal or pelvic lymphadenopathy is seen. The bony structures demonstrate a compression deformity involving the L1 vertebral body, age indeterminate. IMPRESSION: 1. Horseshoe kidney with bilateral nonobstructing nephrolithiasis. 2. Rectal wall thickening with presacral soft tissue density/edema. A rectal mass cannot be entirely excluded and correlation with endoscopy would be recommended if not already performed. 3. No other significant abnormality is seen. Dictated by: Dictated on workstation # [id number]
--- NOTE | 2022-04-10 13:20 | Occ Therapy Progress Note ---
Therapy Progress Note OT evaluation and treatment attempted on this date. Per nursing pt had been up to recliner earlier today and had a fall, no experiencing some back pain. Pt laying in bed upon OT arrival, eyes and mouth open. OT asked pt some questions, but pt unable to answer questions. At times, it appeared as if pt was attempting to communicate but he wasn't moving his lips or producing any understandable words. OT attempted UE exercises, but pt actively resisted all movements. Pt unable to participate in skilled OT services at this time, OT will attempt evaluation and tx again tomorrow. 1, visit ARIANA TEIXEIRA OT Apr 10, 2022 13:20
--- NOTE | 2022-04-10 13:41 | Physical Therapy Progress Note ---
Therapy Progress Note Patient in bed pre tx, open mouth, asleep. Patient does wake up after a bit but is very drowsy. He doesn't seem to be able to communicate at this time, he does moan a bit. Attempted to get patient to perform LE exercise or even PROM but he resists all movement and will not follow directions. Apparently patient fell earlier today. Will check back tomorrow and see if patient is able to participate. JOSE ESCAMILLA PT Apr 10, 2022 13:41
[2022-04-10] MEDS: cefTRIAXone 1 GM PRE-MIX 50 ML IV SCH (14:03)
[2022-04-10] MEDS: ENOXAPARIN 40 MG/0.4 ML (LOVENOX) SYR SC SCH (14:03)
[2022-04-10] MEDS: MEMANTINE 10 MG (NAMENDA) TABLET PO SCH ×2 (14:03→19:34)
--- NOTE | 2022-04-10 14:30 | ST Dysphagia Evaluation ---
Speech Evaluation-General Medical Diagnosis COVID Onset Date: Apr 04, 2022 Medical History Pertinent Medical History: DM, Dementia, HTN Reviewed History: Yes Social History Current Living Status: Spouse Speech PLF/Current-Dysphagia Prior Level of Function The patient's prior level of function is unknown to the clinician at this time. The patient is confused, remaining with eyes closed throughout a majority of the assessment. Subjective The patient was seated upright in bed, eyes closed upon entrance to his room by the clinician. The patient does respond to the clinician's verbal greeting with unintelligible speech productions. The patient intermittently opens his eyes, however, for brief periods only. The patient's RN stated the patient does not display s/s of suspected aspiration during his periods of alertness, however, when he becomes less alert (similar to today's assessment) the patient displays s/s of suspected aspiration. The patient's RN and the boiler operator are present for a portion of the evaluation. Cognitive Status Patient Orientation: Confused Oral Motor Skills Dentition: Natural Current Food Consistancy: Regular, Thin Liquids Ability to Follow Directions: Poor Oral Expression Ability: Severe Impairment Voice Voice Phonatory-Based Quality: Weak Voice Pitch: Normal Voice Loudness: Severely Soft/Quiet Face Facial Symmetry: Symmetrical (At rest.) The patient did not participate in any verbal instructions or direct modeling attempts to complete an oral motor examination. Oral-Facial Assessment Oral-Facial Dentition: Normal Labial Seal Description: Weak Dysphagia Evaluation Consistencies Presented: Thin Liquid (ice chip, teaspoon, cup edge, straw), [employer] Thick Liquid (teaspoon, cup edge), Honey Thick Liquid (teaspoon, cup edg e), Pureed Oral Phase: Unable to Suck Straw The patient displayed great difficulty and disorganized removal of bolus consistency from the teaspoon and straw. The patient was not able to draw material through the straw regardless of multiple attempts. Lingual pumping behaviors were present, as well as, oral holding with all consistencies tested. The patient was unable to self-feed any item provided. Pharyngeal Phase: Multiple Swallow Attempts, Delayed Swallow Laryngeal elevation was present to palpation. The patient displayed multiple swallows per bolus. The patient did not display s/s of suspected aspiration with ice chips or teaspoons of thin liquid, teaspoon of nectar-thick liquid, teaspoons of honey- thick liquid, cup edge drinks of honey-thick liquid or puree. The patient displayed an increasingly wet vocal quality with cup edge drinks of thin liquid and a delayed, rigorous cough with cup edge drinks of thin liquid and nectar-thick liquid (s/s of suspected aspiration). Dietary Recommendations: Pureed Liquid Recommendations: Honey Consistancy Recommendations: - Dysphagia one (pureed) consistency diet with moderately thick (HONEY- thick) liquid, as tolerated. - Fully upright and ALERT for P.O. intake. - 1:1 feeding assistance and supervision throughout all P.O. intake. - Small bites and sips. - Crush medication and place in puree for administration. - If the patient refused boluses via cup edge, teaspoon boluses of honey-thick liquid will need to be provided. - Monitor for s/s of suspected aspiration with P.O. intake. If demonstrated, contact speech pathology. The results and recommendations were discussed with the patient and the patient's RN immediately following completion. Dysphagia Evaluation Summary The patient demonstrated oropharyngeal dysphagia characterized by reduced lingual and labial coordination and poor airway protection in the presence of bolus material. Speech Short Term Goals Short Term Goals Short Term Goals 1. The patient's family and staff will follow safe swallowing protocols with 90% accuracy, independently. Time Frame-STG: Three Days. Speech Intermediate Goals Jet Engine Mechanic Goals 1. The patient will tolerate the least restrictive diet consistency without s/s of suspected aspiration. Time Frame: One Week. Speech-Plan Treatment Plan Speech Therapy Treatment Plan: Continue Plan of Care Treatment Duration: Apr 17, 2022 Frequency: 2 times per week Estimated Hrs Per Day: .25 hour per day Rehab Potential: Guarded Safety Risks/Education Teaching Recipient: Patient Teaching Methods: Discussion Response to Teaching: Unable to Comprehend Education Topics Provided: Results, Recommendations, Swallowing Strategies Time Speech Therapy Time In: 12:00 Speech Therapy Time Out: 12:28 Total Billed Time: 28 Billed Treatment Time 1, LATOSHA URIOSTEGUI ELIZABETH ST Apr 10, 2022 14:30
[2022-04-10] MEDS: TAMSULOSIN 0.4 MG (FLOMAX) CAP PO SCH (18:49)
--- NOTE | 2022-04-10 19:27 | Progress Note - Hospitalist ---
Subjective HPI/CC On Admission Date Seen by Provider: Apr 10, 2022 Time Seen by Provider: 09:25 Subjective/Events-last exam He had a fall this morning. He is more confused. He was reportedly more oriented last night and this morning. Objective Exam Vital Signs Vital Signs Date Time Temp Pulse Resp B/P (MAP) Pulse Ox O2 Delivery O2 Flow Rate FiO2 04/10/22 10:00 83 20 126/78 (94) 95 Room Air 04/10/22 08:00 36.7 04/09/22 13:12 21 Capillary Refill : General Appearance: No Apparent Distress, WD/WN Respiratory: Lungs Clear, No Respiratory Distress Cardiovascular: Regular Rate, Rhythm, No Murmur Gastrointestinal: Normal Bowel Sounds, Soft Extremity: Normal Inspection, No Pedal Edema Neurologic/Psychiatric: Alert, Disoriented, Motor Weakness Results/Procedures Lab Laboratory Tests 04/10/22 07:40 Patient resulted labs reviewed. Assessment/Plan Assessment and Plan Assess & Plan/Chief Complaint Debility Dysphagia Fall PT/OT/ST CT head/cervical/chest/abdomen/pelvis negative for acute injuries Incidental finding of rectal wall thickening, consider colonoscopy, recommend outpatient follow up Dementia Delirium Reorient as needed Continue home meds Urinary retention Mccormick in place HTN BP well controlled DVT ppx: Lovenox DHRUV, resolved PNA, resolved COVID19, resolved Diagnosis/Problems Diagnosis/Problems (1) Fall Status: Acute (2) Debility Status: Acute (3) Dementia Status: Chronic (4) Delirium Status: Acute (5) Urinary retention Status: Acute BROCK FLAHERTY MD Apr 10, 2022 19:27
[2022-04-10 19:32] VITALS: BP 130/70
[2022-04-10] MEDS: DONEPEZIL 10 MG (ARICEPT) TAB PO SCH (19:35)
[2022-04-11] MEDS: guaiFENesin SYRUP 100 MG/5 ML 10 ML (ROBITUSSIN SF) PO SCH ×6 (03:14→23:16)
[2022-04-11 06:35] LABS: POTASSIUM 3.2 MMOL/L (3.6-5.0)
[2022-04-11 06:36] LABS: CALCIUM 8.3 MG/DL (8.5-10.1)
[2022-04-11 06:40] LABS: CREATININE SERUM 0.77 MG/DL (0.60-1.30)
[2022-04-11 06:43] LABS: MAGNESIUM 2.5 MG/DL (1.6-2.4)
[2022-04-11] MEDS: MAGNESIUM 1 GM/100 ML IVPB 100 ML IV SCH (06:55)
[2022-04-11] MEDS: POTASSIUM CL 10MEQ/50ML IVPB 50 ML IV SCH (06:56)
[2022-04-11] MEDS: KCL 20 MEQ TAB (K-DUR) PO SCH (07:17)
[2022-04-11 08:00] VITALS: BP 110/65
[2022-04-11] MEDS ORDERED: KCL 20 MEQ TAB (K-DUR) PO ONE ×2 (08:00→10:00)
[2022-04-11] MEDS: MEMANTINE 10 MG (NAMENDA) TABLET PO SCH ×2 (08:14→19:35)
[2022-04-11] MEDS: LORATADINE (CLARITIN) 10 MG TAB PO SCH (08:14)
--- NOTE | 2022-04-11 11:26 | Occupational Therapy Eval ---
OT Evaluation-General/PLF Medical Diagnosis Admission Date Apr 09, 2022 at 12:18 Medical Diagnosis: COVID Onset Date: Apr 04, 2022 Therapy Diagnosis Therapy Diagnosis: decreased ADL status, weakness Precautions Precautions/Isolations: Aspiration, Fall Prevention, Standard Precautions Referral Physician: Ritu Referral Reason: Evaluation/Treatment Medical History Pertinent Medical History: DM, Dementia, HTN Current History Presents to ED with weakness, tsf SWB status Social History Home: Single Level Current Living Status: Spouse Entry Into Home: Stairs With Railing Steps Into Home: 3 ADL-Prior Level of Function SCALE: Activities may be completed with or without assistive devices. 4-Gecdjvdkbv-ujtmyuy completes the activity by him/herself with no assistance from a helper. 5-Set-up or Clean-up Assistance-helper sets up or cleans up; patient completes activity. [place] assists only prior to or following the activity. 4-Supervision or Touching Assistance-helper provides verbal cues and/or touching/steadying and/or contact guard assistance as patient completes activity. Assistance may be provided throughout the activity or intermittently. 3-Partial/Moderate Assistance-helper does LESS THAN HALF the effort. [place] lifts, holds or supports trunk or limbs, but provides less than half the effort. 2-Substantial/Maximal Assistance-helper does MORE THAN HALF the effort. [place] lifts or holds trunk or limbs and provides more than half the effort. 2-Hhkddafmq-kazoms does ALL the effort. Patient does none of the effort to complete the activity. Or, the assistance of 2 or more helpers is required for the patient to complete the activity. If activity was not attempted, code reason: 7-Patient Refused. 9-Not Applicable-not attempted and the patient did not perform the activity before the current illness, exacerbation or injury. 10-Not Attempted due to Environmental Limitations-(lack of equipment, weather restraints, etc.). 88-Not Attempted due to Medical Conditions or Safety Concerns. ADL PLOF Comments Pt's reports pt was independent with ADLs and functional mobility at OF, no AD Self Care: Independent Functional Cognition: Unknown DME/Equipment: Bath Bench, Shower Drive Self: Yes OT Current Status Subjective Pt up in recliner, agreeable to OT Tx. Pt's present throughout session, assisted with obtaining PLOF and home set up. Pt appears more alert today, able to answer questions and follow instructions. Mental Status/Objective Patient Orientation: Person, Confused Attachments: Mccormick Catheter Current Upper Extremity ROM WFL during ADLs Upper Extremity Strength grossly 4/5, not formally tested due to pt's confusion ADL-Treatment Eating (QC): 3 (Pt requires feeding assistance) Oral Hygiene (QC): 3 (Per clinical judgement) Shower/Bathe Self (QC): 1 (Assist x2 in stand to wash buttocks. Pt able to wash UEs, chest/abdomen, periarea, thighs seated. Assistance with BLEs lower legs and feet.) Upper Body Dressing (QC): 2 (Max A with hospital gown.) Lower Body Dressing (QC): 1 (Assist x2 would be required in stand, assistance would be required to thread feet, and assist to manage up.) On/Off Footwear (QC): 1 (total assist required) Toileting Hygiene (QC): 1 (assist x2 in stand for hygiene ) Other Treatments Pt in recliner. Pt's provided information about PLOF and home set up. Pt participated in sponge bath and ADLs at chair, assist x2 required in stand to manage cleaning. Post tx, pt in recliner, call light in reach and all needs met, chair alarm activated. Education OT Patient Education: Correct positioning, Energy conservation, Modified ADL techniques, Progress toward Goal/Update tx plan, Purpose of tx/functional activities, Rehab process Teaching Recipient: Patient, Family Teaching Methods: Discussion Response to Teaching: Reinforcement Needed OT Fci Goals Fci Goals Time Frame: May 03, 2022 Eating (QC): 5 Oral Hygiene (QC): 5 Toileting Hygiene (QC): 3 Shower/Bathe Self (QC): 3 Upper Body Dressing (QC): 4 Lower Body Dressing (QC): 3 On/Off Footwear (QC): 3 Additional Goals: 1-Demonstrate ADL Tasks, 2-Verbalize Understanding, 3- ImproveStrength/Moy 1=Demonstrate adherence to instructed precautions during ADL tasks. 2=Patient will verbalize/demonstrate understanding of assistive devices/modifications for ADL. 3=Patient will improve strength/tolerance for activity to enable patient to perform ADL's. OT Education/Plan Problem List/Assessment Assessment: Decreased Activ Tolerance, Decreased UE Strength, Impaired Funct Balance, Impaired I ADL's, Impaired Self-Care Skills Discharge Recommendations Plan/Recommendations: Continue POC Treatment Plan/Plan of Care Patient would benefit from OT for education, treatment and training to promote independence in ADL's, mobility, safety and/or upper extremity function for ADL's. Plan of Care: ADL Retraining, Caregiver Training, Functional Mobility, UE Funct Exercise/Act Treatment Duration: May 03, 2022 Frequency: 5 times per week Estimated Hrs Per Day: .25 hour per day Rehab Potential: Guarded Time/GCodes Start Time: 11:13 Stop Time: 11:36 Total Time Billed (hr/min): 23 Billed Treatment Time 1, EVM (10'), ADL (13') ARIANA TEIXEIRA OT Apr 11, 2022 11:26
--- NOTE | 2022-04-11 12:12 | Physical Therapy Daily Note ---
PT Daily Note-Current Subjective Spouse present. Patient more alert. Mental Status Patient Orientation: Confused Transfers SCALE: Activities may be completed with or without assistive devices. 0-Rclmjwtbny-rozaqaz completes the activity by him/herself with no assistance from a helper. 5-Set-up or Clean-up Assistance-helper sets up or cleans up; patient completes activity. [place] assists only prior to or following the activity. 4-Supervision or Touching Assistance-helper provides verbal cues and/or touching/steadying and/or contact guard assistance as patient completes activity. Assistance may be provided throughout the activity or intermittently. 3-Partial/Moderate Assistance-helper does LESS THAN HALF the effort. [place] lifts, holds or supports trunk or limbs, but provides less than half the effort. 2-Substantial/Maximal Assistance-helper does MORE THAN HALF the effort. [place] lifts or holds trunk or limbs and provides more than half the effort. 8-Pkwdvpjdz-pmxvsk does ALL the effort. Patient does none of the effort to c omplete the activity. Or, the assistance of 2 or more helpers is required for the patient to complete the activity. If activity was not attempted, code reason: 7-Patient Refused. 9-Not Applicable-not attempted and the patient did not perform the activity before the current illness, exacerbation or injury. 10-Not Attempted due to Environmental Limitations-(lack of equipment, weather restraints, etc.). 88-Not Attempted due to Medical Conditions or Safety Concerns. Lying to Sitting/Side of Bed(Q: 2 Sit to Stand (QC): 2 Chair/Fbl-yv-Ngbwn Xfer(QC): 2 Toilet Transfer (QC): 2 Gait Training Distance: 10' x2 Walk 10 feet (QC): 2 Gait Assistive Device: FWW NBOS/shuffle gait sequence/extended UE's with FWW use. Assessment Patient incontinent BM requiring dependent assist to cleanse and change patient. Patient up in recliner with chair alarm activated, telesitter present and spouse present. PT Night Auditor Goals Care Home Goals PT Night Auditor Goals Time Frame: May 11, 2022 Roll Left & Right (QC): 3 Sit to Lying (QC): 3 Lying-Sitting on Side/Bed(QC): 3 Sit to Stand (QC): 3 Chair/Dti-bd-Wtdtz Xfer(QC): 3 Toilet Transfer (QC): 3 Car Transfer (QC): 3 Does the Patient Walk: Yes Walk 10 feet (QC): 3 Walk 50ft with 2 Turns (QC): 3 Walk 150 ft (QC): 3 Walking 10ft on Uneven Surface: 3 1 Step (curb) (QC): 3 4 Steps (QC): 3 12 Steps (QC): 9 Picking up an Object (QC): 88 Wheel 50 feet with 2 turns (QC: 9 Wheel 150 feet: 9 PT Plan Treatment/Plan Treatment Plan: Continue Plan of Care Treatment Plan: Bed Mobility, Education, Functional Activity Moy, Functional Strength, Gait, Safety, Therapeutic Exercise, Transfers Treatment Duration: May 11, 2022 Frequency: 6 times per week Estimated Hrs Per Day: .25 hour per day Time/GCodes Time In: 1050 Time Out: 1113 Total Billed Treatment Time: 23 Total Billed Treatment 1 visit FA x 2 23 min MAUNEL GARCIA PT Apr 11, 2022 12:12
--- NOTE | 2022-04-11 12:39 | Speech Therapy Daily Note ---
Speech Daily Progress Note Subjective Date Seen by Provider: Apr 11, 2022 Time Seen by Provider: 10:37 The patient was seated upright in bed, awake and alert upon entrance to his room by the clinician. The patient's was present at bedside and provided helpful information to the clinician regarding the patient's P.O. intake. Per patient's , the patient consumes regular consistencies (sandwiches) with thin liquids at home. The patient's denied s/s of suspected aspiration with any consistency he consumes. Objective The clinician was able to discuss and share education with the patient's regarding the oropharyngeal swallowing process including how the process changes during periods of weakness and alertness. The patient's verbalized comprehension and asked appropriate questions throughout the discussion. The patient was provided thin liquid by straw, puree, and solid consistencies. The patient did not display s/s of suspected aspiration with more than eight ounces of thin liquid via straw (single and large, consecutive drinks), puree, or solid consistencies. Prolonged mastication was present with solid consistencies and thin liquid was required to clear the consistency from the oral cavity. The patient's vocal quality remained clear following each swallow. Recommendations: - Dysphagia two consistency diet with thin liquids, as tolerated. - Fully upright and alert for P.O. intake. - 1:1 supervision and assistance with P.O. intake. - Crush medication and place in puree for administration. - Monitor for s/s of suspected aspiration with P.O. intake. If demonstrated, place the patient NPO. The clinician discussed the results with the patient and the patient's . The clinician shared if the patient becomes fatigued or more lethargic, the diet recommendations could change for the patient's safety. The patient's verbalized comprehension of them material. The results were shared with the RN following completion. Treatment Plan Continue Plan of Care Speech Short Term Goals Short Term Goals Short Term Goals 1. The patient's family and staff will follow safe swallowing protocols with 90% accuracy, independently. Time Frame-STG: Three Days. Speech Senior Care Goals Senior Care Goals 1. The patient will tolerate the least restrictive diet consistency without s/s of suspected aspiration. Time Frame: One Week. Speech-Plan Treatment Plan Speech Therapy Treatment Plan: Continue Plan of Care Treatment Duration: Apr 17, 2022 Frequency: 2 times per week Estimated Hrs Per Day: .25 hour per day Rehab Potential: Guarded Safety Risks/Education Teaching Recipient: Patient, Significant Other Teaching Methods: Discussion Response to Teaching: Verbalize Understanding Education Topics Provided: Results, Recommendations Time Speech Therapy Time In: 10:37 Speech Therapy Time Out: 10:58 Total Billed Time: 21 Billed Treatment Time LATOSHA Kerns GRACE TREVIÑO Apr 11, 2022 12:39
[2022-04-11] MEDS: ENOXAPARIN 40 MG/0.4 ML (LOVENOX) SYR SC SCH (14:58)
[2022-04-11] MEDS: TAMSULOSIN 0.4 MG (FLOMAX) CAP PO SCH (17:55)
[2022-04-11] MEDS: DONEPEZIL 10 MG (ARICEPT) TAB PO SCH (19:35)
[2022-04-11 19:39] VITALS: BP 121/58
[2022-04-12] MEDS: guaiFENesin SYRUP 100 MG/5 ML 10 ML (ROBITUSSIN SF) PO SCH ×6 (03:23→20:37)
[2022-04-12 06:01] LABS: POTASSIUM 3.8 MMOL/L (3.6-5.0)
[2022-04-12 06:02] LABS: CALCIUM 8.1 MG/DL (8.5-10.1)
[2022-04-12] MEDS: KCL 20 MEQ TAB (K-DUR) PO SCH (06:06)
[2022-04-12] MEDS: POTASSIUM CL 10MEQ/50ML IVPB 50 ML IV SCH (06:06)
[2022-04-12 06:07] LABS: CREATININE SERUM 0.77 MG/DL (0.60-1.30)
[2022-04-12 06:09] LABS: MAGNESIUM 2.6 MG/DL (1.6-2.4)
[2022-04-12] MEDS: MAGNESIUM 1 GM/100 ML IVPB 100 ML IV SCH (06:17)
[2022-04-12 07:55] VITALS: BP 121/57
[2022-04-12] MEDS: LORATADINE (CLARITIN) 10 MG TAB PO SCH (09:05)
[2022-04-12] MEDS: MEMANTINE 10 MG (NAMENDA) TABLET PO SCH ×2 (09:05→20:36)
--- NOTE | 2022-04-12 09:39 | Physical Therapy Daily Note ---
PT Daily Note-Current Subjective Patient is more alert today. Agrees to PT. Mental Status Attachments: Mccormick Catheter Transfers SCALE: Activities may be completed with or without assistive devices. 5-Glbqlemxau-cwbtvrg completes the activity by him/herself with no assistance from a helper. 5-Set-up or Clean-up Assistance-helper sets up or cleans up; patient completes activity. [place] assists only prior to or following the activity. 4-Supervision or Touching Assistance-helper provides verbal cues and/or touching/steadying and/or contact guard assistance as patient completes activity. Assistance may be provided throughout the activity or intermittently. 3-Partial/Moderate Assistance-helper does LESS THAN HALF the effort. [place] lifts, holds or supports trunk or limbs, but provides less than half the effort. 2-Substantial/Maximal Assistance-helper does MORE THAN HALF the effort. [place] lifts or holds trunk or limbs and provides more than half the effort. 8-Hhfzfcgdd-worncq does ALL the effort. Patient does none of the effort to complete the activity. Or, the assistance of 2 or more helpers is required for the patient to complete the activity. If activity was not attempted, code reason: 7-Patient Refused. 9-Not Applicable-not attempted and the patient did not perform the activity before the current illness, exacerbation or injury. 10-Not Attempted due to Environmental Limitations-(lack of equipment, weather restraints, etc.). 88-Not Attempted due to Medical Conditions or Safety Concerns. Lying to Sitting/Side of Bed(Q: 2 Sit to Stand (QC): 2 (severely retropulsive with sit to stand) Chair/Ttn-lv-Bltxj Xfer(QC): 2 (severely retropulsive with all mobility) Gait Training Distance: 10' Walk 10 feet (QC): 2 Gait Assistive Device: FWW extended UE's with FWW use/NBOS, shuffle gait Exercises Seated Therapy Exercises: Long arc quads, Hip flexion Seated Reps: 12 (AAROM) Assessment Patient continues to require max assist with all mobility and has difficulty with following simple direction, however, improving. PT to increase activity as tolerated by patient. Patient is up in recliner with chair alarm activated. PT Mohs Surgeon Goals Mohs Surgeon Goals PT Snf Goals Time Frame: May 11, 2022 Roll Left & Right (QC): 3 Sit to Lying (QC): 3 Lying-Sitting on Side/Bed(QC): 3 Sit to Stand (QC): 3 Chair/Eqh-tx-Zupbw Xfer(QC): 3 Toilet Transfer (QC): 3 Car Transfer (QC): 3 Does the Patient Walk: Yes Walk 10 feet (QC): 3 Walk 50ft with 2 Turns (QC): 3 Walk 150 ft (QC): 3 Walking 10ft on Uneven Surface: 3 1 Step (curb) (QC): 3 4 Steps (QC): 3 12 Steps (QC): 9 Picking up an Object (QC): 88 Wheel 50 feet with 2 turns (QC: 9 Wheel 150 feet: 9 PT Plan Treatment/Plan Treatment Plan: Continue Plan of Care Treatment Plan: Bed Mobility, Education, Functional Activity Moy, Functional Strength, Gait, Safety, Therapeutic Exercise, Transfers Treatment Duration: May 11, 2022 Frequency: 6 times per week Estimated Hrs Per Day: .25 hour per day Time/GCodes Time In: 900 Time Out: 916 Total Billed Treatment Time: 16 Total Billed Treatment 1 visit FA 16 min MANUEL GARCIA PT Apr 12, 2022 09:39
--- NOTE | 2022-04-12 11:12 | Occupational Ther Daily Note ---
OT Current Status-Daily Note Subjective Pt alert and sitting in chair talking to . Pt agrees to therapy. Mental Status/Objective Patient Orientation: Person, Confused Attachments: IV ADL-Treatment Pt agrees to brushing teeth. After supplies gathered pt Mod A to brush teeth, due to sequencing issues. Pt was able to wash hands and face Min A, after supplies gathered. Pt participated in 1 set of 10 reps with two BUE arm exercises. Skilled instruction by verbal, physical and visual cues to complete correct technique for arm exercises. Encouraged and patient to do more movement activities, when sitting. Call light/phone in reach. All needs met in room. Safety measures in place. Therapy Code Descriptions/Definitions Functional [place] Measure: 0=Not Assessed/NA 4=Minimal Assistance 1=Total Assistance 5=Supervision or Setup 2=Maximal Assistance 6=Modified [place] 3=Moderate Assistance 7=Complete IndependenceSCALE: Activities may be completed with or without assistive devices. 1-Tmbtbvevjr-nrgyerx completes the activity by him/herself with no assistance from a helper. 5-Set-up or Clean-up Assistance-helper sets up or cleans up; patient completes activity. [place] assists only prior to or following the activity. 4-Supervision or Touching Assistance-helper provides verbal cues and/or touchi ng/steadying and/or contact guard assistance as patient completes activity. Assistance may be provided throughout the activity or intermittently. 3-Partial/Moderate Assistance-helper does LESS THAN HALF the effort. [place] lifts, holds or supports trunk or limbs, but provides less than half the effort. 2-Substantial/Maximal Assistance-helper does MORE THAN HALF the effort. [place] lifts or holds trunk or limbs and provides more than half the effort. 2-Xattudfzu-vzffte does ALL the effort. Patient does none of the effort to complete the activity. Or, the assistance of 2 or more helpers is required for the patient to complete the activity. If activity was not attempted, code reason: 7-Patient Refused. 9-Not Applicable-not attempted and the patient did not perform the activity before the current illness, exacerbation or injury. 10-Not Attempted due to Environmental Limitations-(lack of equipment, weather restraints, etc.). 88-Not Attempted due to Medical Conditions or Safety Concerns. Oral Hygiene (QC): 3 (Mod A ) OT Alf Goals Alf Goals Time Frame: May 03, 2022 Eating (QC): 5 Oral Hygiene (QC): 5 Toileting Hygiene (QC): 3 Shower/Bathe Self (QC): 3 Upper Body Dressing (QC): 4 Lower Body Dressing (QC): 3 On/Off Footwear (QC): 3 Additional Goals: 1-Demonstrate ADL Tasks, 2-Verbalize Understanding, 3- ImproveStrength/Moy 1=Demonstrate adherence to instructed precautions during ADL tasks. 2=Patient will verbalize/demonstrate understanding of assistive devices/modifications for ADL. 3=Patient will improve strength/tolerance for activity to enable patient to perform ADL's. OT Education/Plan Problem List/Assessment Assessment: Decreased Activ Tolerance, Decreased Safety Aware, Decreased UE Strength, Impaired Cognition, Impaired Coordination, Impaired Self-Care Skills Discharge Recommendations Plan/Recommendations: Continue POC Treatment Plan/Plan of Care Patient would benefit from OT for education, treatment and training to promote independence in ADL's, mobility, safety and/or upper extremity function for ADL's. Plan of Care: ADL Retraining, Caregiver Training, Functional Mobility, UE Funct Exercise/Act Treatment Duration: May 03, 2022 Frequency: 5 times per week Estimated Hrs Per Day: .25 hour per day Rehab Potential: Guarded Time/GCodes Start Time: 10:23 Stop Time: 10:46 Total Time Billed (hr/min): 23 Billed Treatment Time 1 visit- EX 1 (8 min) ADL- 1 (15 min) FERDINAND CULP Apr 12, 2022 11:12
--- NOTE | 2022-04-12 16:25 | Progress Note - Hospitalist ---
Subjective HPI/CC On Admission Date Seen by Provider: Apr 12, 2022 Time Seen by Provider: 11:20 Subjective/Events-last exam He is awake and alert. His is at the bedside. He denies pain. He denies shortness of breath. He did not eat much for breakfast. Objective Exam Vital Signs Vital Signs Date Time Temp Pulse Resp B/P (MAP) Pulse Ox O2 Delivery O2 Flow Rate FiO2 04/12/22 08:05 Room Air 04/12/22 07:55 37.0 70 18 121/57 (78) 95 04/09/22 13:12 21 Capillary Refill : General Appearance: No Apparent Distress, WD/WN Respiratory: Lungs Clear, No Respiratory Distress Cardiovascular: Regular Rate, Rhythm, No Murmur Gastrointestinal: Normal Bowel Sounds, Soft Extremity: Normal Inspection, No Pedal Edema Neurologic/Psychiatric: Alert, Oriented x3, Motor Weakness Results/Procedures Lab Laboratory Tests 04/12/22 05:07 Patient resulted labs reviewed. Assessment/Plan Assessment and Plan Assess & Plan/Chief Complaint Debility Dysphagia Fall PT/OT/ST Dementia Delirium Reorient as needed Continue home meds Urinary retention Mccormick in place HTN BP well controlled Rectal thickening Incidental finding of rectal wall thickening, consider colonoscopy, recommend outpatient follow up DVT ppx: Lovenox DHRUV, resolved PNA, resolved COVID19, resolved Diagnosis/Problems Diagnosis/Problems (1) Fall Status: Acute (2) Debility Status: Acute (3) Dementia Status: Chronic (4) Delirium Status: Acute (5) Urinary retention Status: Acute (6) Colonic thickening Status: Acute BROCK FLAHRETY MD Apr 12, 2022 16:25
[2022-04-12] MEDS: ENOXAPARIN 40 MG/0.4 ML (LOVENOX) SYR SC SCH (18:12)
[2022-04-12] MEDS: TAMSULOSIN 0.4 MG (FLOMAX) CAP PO SCH (18:12)
[2022-04-12 19:41] VITALS: BP 133/75
[2022-04-12] MEDS: DONEPEZIL 10 MG (ARICEPT) TAB PO SCH (20:36)
[2022-04-13] MEDS: guaiFENesin SYRUP 100 MG/5 ML 10 ML (ROBITUSSIN SF) PO SCH ×6 (03:45→23:16)
[2022-04-13 07:30] VITALS: BP 154/67
[2022-04-13 07:53] LABS: POTASSIUM 3.9 MMOL/L (3.6-5.0)
[2022-04-13 08:00] LABS: MAGNESIUM 2.2 MG/DL (1.6-2.4)
[2022-04-13] MEDS: POTASSIUM CL 10MEQ/50ML IVPB 50 ML IV SCH (08:25)
[2022-04-13] MEDS: MAGNESIUM 1 GM/100 ML IVPB 100 ML IV SCH (08:25)
[2022-04-13] MEDS: KCL 20 MEQ TAB (K-DUR) PO SCH (08:26)
[2022-04-13] MEDS: LORATADINE (CLARITIN) 10 MG TAB PO SCH (09:04)
[2022-04-13] MEDS: MEMANTINE 10 MG (NAMENDA) TABLET PO SCH ×2 (09:04→21:17)
--- NOTE | 2022-04-13 09:35 | Physical Therapy Daily Note ---
PT Daily Note-Current Subjective Patient more alert and talkative on this date. Mental Status Patient Orientation: Confused Attachments: Mccormick Catheter Transfers SCALE: Activities may be completed with or without assistive devices. 5-Mdlmcpjwkd-bcbycpp completes the activity by him/herself with no assistance from a helper. 5-Set-up or Clean-up Assistance-helper sets up or cleans up; patient completes activity. [place] assists only prior to or following the activity. 4-Supervision or Touching Assistance-helper provides verbal cues and/or touching/steadying and/or contact guard assistance as patient completes activity. Assistance may be provided throughout the activity or intermittently. 3-Partial/Moderate Assistance-helper does LESS THAN HALF the effort. [place] lifts, holds or supports trunk or limbs, but provides less than half the effort. 2-Substantial/Maximal Assistance-helper does MORE THAN HALF the effort. [place] lifts or holds trunk or limbs and provides more than half the effort. 7-Pcbgiampb-olihib does ALL the effort. Patient does none of the effort to complete the activity. Or, the assistance of 2 or more helpers is required for the patient to complete the activity. If activity was not attempted, code reason: 7-Patient Refused. 9-Not Applicable-not attempted and the patient did not perform the activity before the current illness, exacerbation or injury. 10-Not Attempted due to Environmental Limitations-(lack of equipment, weather restraints, etc.). 88-Not Attempted due to Medical Conditions or Safety Concerns. Lying to Sitting/Side of Bed(Q: 2 Sit to Stand (QC): 3 Chair/Tth-wp-Hwhmy Xfer(QC): 3 Toilet Transfer (QC): 3 incontinent BM/dependent assist to cleanse Gait Training Distance: 175' Walk 10 feet (QC): 2 Walk 50 ft with 2 Turns(QC): 2 Walk 150 ft (QC): 2 Gait Assistive Device: FWW PT assist to advance FWW due to extended UE's and flexed bilateral knee posture with shuffle gait sequence Assessment Patient up in recline with chair alarm activated and breakfast in situ. PT to increase activity as tolerated by patient. PT Jail Goals Jail Goals PT Loader Operator Supervisor Goals Time Frame: May 11, 2022 Roll Left & Right (QC): 3 Sit to Lying (QC): 3 Lying-Sitting on Side/Bed(QC): 3 Sit to Stand (QC): 3 Chair/Dnf-nz-Eqzwu Xfer(QC): 3 Toilet Transfer (QC): 3 Car Transfer (QC): 3 Does the Patient Walk: Yes Walk 10 feet (QC): 3 Walk 50ft with 2 Turns (QC): 3 Walk 150 ft (QC): 3 Walking 10ft on Uneven Surface: 3 1 Step (curb) (QC): 3 4 Steps (QC): 3 12 Steps (QC): 9 Picking up an Object (QC): 88 Wheel 50 feet with 2 turns (QC: 9 Wheel 150 feet: 9 PT Plan Treatment/Plan Treatment Plan: Continue Plan of Care Treatment Plan: Bed Mobility, Education, Functional Activity Moy, Functional Strength, Gait, Safety, Therapeutic Exercise, Transfers Treatment Duration: May 11, 2022 Frequency: 6 times per week Estimated Hrs Per Day: .25 hour per day Time/GCodes Time In: 810 Time Out: 825 Total Billed Treatment Time: 15 Total Billed Treatment 1 visit FA 15 min MANUEL GARCIA PT Apr 13, 2022 09:35
[2022-04-13] MEDS: ENOXAPARIN 40 MG/0.4 ML (LOVENOX) SYR SC SCH (15:13)
[2022-04-13] MEDS: TAMSULOSIN 0.4 MG (FLOMAX) CAP PO SCH (17:59)
[2022-04-13] MEDS ORDERED: BISACODYL 10 MG SUPP (DULCOLAX) PR PRN (19:30)
[2022-04-13] MEDS ORDERED: polyethylene glycoL POWDER 17 GM (MIRALAX) PACK PO PRN (19:30)
[2022-04-13 20:10] VITALS: BP 135/80
[2022-04-13] MEDS: SENNA W/DOCUSATE (SENOKOT S) TABLET PO SCH (21:18)
[2022-04-13] MEDS: LACTULOSE SYRUP 10GM/15ML (ENULOSE) 30ML UDC PO SCH (21:18)
[2022-04-13] MEDS: DOCUSATE SODIUM 100 MG (COLACE) CAP PO SCH (21:18)
[2022-04-13] MEDS: DONEPEZIL 10 MG (ARICEPT) TAB PO SCH (21:18)
[2022-04-14] MEDS: guaiFENesin SYRUP 100 MG/5 ML 10 ML (ROBITUSSIN SF) PO SCH ×6 (03:54→23:18)
[2022-04-14 06:53] LABS: CALCIUM 8.4 MG/DL (8.5-10.1)
[2022-04-14] MEDS: POTASSIUM CL 10MEQ/50ML IVPB 50 ML IV SCH (06:55)
[2022-04-14] MEDS: KCL 20 MEQ TAB (K-DUR) PO SCH (06:56)
[2022-04-14 06:57] LABS: CREATININE SERUM 0.69 MG/DL (0.60-1.30)
[2022-04-14 06:59] LABS: MAGNESIUM 2.2 MG/DL (1.6-2.4)
[2022-04-14] MEDS: MAGNESIUM 1 GM/100 ML IVPB 100 ML IV SCH (07:01)
[2022-04-14 07:32] VITALS: BP 139/73
[2022-04-14] MEDS: LACTULOSE SYRUP 10GM/15ML (ENULOSE) 30ML UDC PO SCH ×2 (08:50→19:30)
[2022-04-14] MEDS: MEMANTINE 10 MG (NAMENDA) TABLET PO SCH ×2 (08:50→19:30)
[2022-04-14] MEDS: DOCUSATE SODIUM 100 MG (COLACE) CAP PO SCH ×2 (08:50→19:30)
[2022-04-14] MEDS: SENNA W/DOCUSATE (SENOKOT S) TABLET PO SCH ×2 (08:50→19:30)
[2022-04-14] MEDS: LORATADINE (CLARITIN) 10 MG TAB PO SCH (08:50)
[2022-04-14] MEDS: ENOXAPARIN 40 MG/0.4 ML (LOVENOX) SYR SC SCH (14:44)
[2022-04-14] MEDS: TAMSULOSIN 0.4 MG (FLOMAX) CAP PO SCH (17:44)
[2022-04-14] MEDS: DONEPEZIL 10 MG (ARICEPT) TAB PO SCH (19:30)
[2022-04-14 20:04] VITALS: BP 115/63
[2022-04-15] MEDS: guaiFENesin SYRUP 100 MG/5 ML 10 ML (ROBITUSSIN SF) PO SCH ×6 (02:57→22:40)
[2022-04-15 08:36] VITALS: BP 124/82
[2022-04-15] MEDS: LORATADINE (CLARITIN) 10 MG TAB PO SCH (09:39)
[2022-04-15] MEDS: DOCUSATE SODIUM 100 MG (COLACE) CAP PO SCH ×2 (09:39→19:35)
[2022-04-15] MEDS: SENNA W/DOCUSATE (SENOKOT S) TABLET PO SCH ×2 (09:39→19:36)
[2022-04-15] MEDS: LACTULOSE SYRUP 10GM/15ML (ENULOSE) 30ML UDC PO SCH ×2 (09:39→19:36)
[2022-04-15] MEDS: MEMANTINE 10 MG (NAMENDA) TABLET PO SCH ×2 (09:44→19:39)
--- NOTE | 2022-04-15 09:51 | Physical Therapy Daily Note ---
PT Daily Note-Current Subjective Patient in bed. Brother present. Mental Status Patient Orientation: Confused Transfers SCALE: Activities may be completed with or without assistive devices. 0-Oqztpkiaui-yitsopc completes the activity by him/herself with no assistance from a helper. 5-Set-up or Clean-up Assistance-helper sets up or cleans up; patient completes activity. [place] assists only prior to or following the activity. 4-Supervision or Touching Assistance-helper provides verbal cues and/or touching/steadying and/or contact guard assistance as patient completes activity. Assistance may be provided throughout the activity or intermittently. 3-Partial/Moderate Assistance-helper does LESS THAN HALF the effort. [place] lifts, holds or supports trunk or limbs, but provides less than half the effort. 2-Substantial/Maximal Assistance-helper does MORE THAN HALF the effort. [place] lifts or holds trunk or limbs and provides more than half the effort. 3-Sobepmzty-edbmhf does ALL the effort. Patient does none of the effort to comp lete the activity. Or, the assistance of 2 or more helpers is required for the patient to complete the activity. If activity was not attempted, code reason: 7-Patient Refused. 9-Not Applicable-not attempted and the patient did not perform the activity before the current illness, exacerbation or injury. 10-Not Attempted due to Environmental Limitations-(lack of equipment, weather restraints, etc.). 88-Not Attempted due to Medical Conditions or Safety Concerns. Lying to Sitting/Side of Bed(Q: 2 Sit to Stand (QC): 2 Chair/Bfn-rr-Brsyo Xfer(QC): 2 Toilet Transfer (QC): 2 Gait Training Distance: 150' Walk 10 feet (QC): 2 Walk 50 ft with 2 Turns(QC): 2 Walk 150 ft (QC): 2 Gait Assistive Device: FWW VC's for body placement in FWW and for gait sequence. Patient has obvious visual deficits with doug change from restroom to room to hallway. Same level of doug, different color and sheen. Patient up in recliner with chair alarm activated and family present. PT Long-Term Goals Blower And Compressor Assembler Goals PT Blower And Compressor Assembler Goals Time Frame: May 11, 2022 Roll Left & Right (QC): 3 Sit to Lying (QC): 3 Lying-Sitting on Side/Bed(QC): 3 Sit to Stand (QC): 3 Chair/Dus-lv-Ushod Xfer(QC): 3 Toilet Transfer (QC): 3 Car Transfer (QC): 3 Does the Patient Walk: Yes Walk 10 feet (QC): 3 Walk 50ft with 2 Turns (QC): 3 Walk 150 ft (QC): 3 Walking 10ft on Uneven Surface: 3 1 Step (curb) (QC): 3 4 Steps (QC): 3 12 Steps (QC): 9 Picking up an Object (QC): 88 Wheel 50 feet with 2 turns (QC: 9 Wheel 150 feet: 9 PT Plan Treatment/Plan Treatment Plan: Continue Plan of Care Treatment Plan: Bed Mobility, Education, Functional Activity Moy, Functional Strength, Gait, Safety, Therapeutic Exercise, Transfers Treatment Duration: May 11, 2022 Frequency: 6 times per week Estimated Hrs Per Day: .25 hour per day Time/GCodes Time In: 912 Time Out: 928 Total Billed Treatment Time: 16 Total Billed Treatment 1 visit FA 16 min MANUEL GARCIA PT Apr 15, 2022 09:51
--- NOTE | 2022-04-15 10:13 | Occupational Ther Daily Note ---
OT Current Status-Daily Note Subjective Pt alert, working with PT. Pt continues to be confused. No c/o pain. Mental Status/Objective Patient Orientation: Person, Place, Time, Situation Attachments: Mccormick Catheter, IV ADL-Treatment Pt requires assist x2 to ambulated from room to toilet. Assist x2 for toilet transfer and toileting. Pt requires verbal and physical assist for safety with transfers and ambulation. Nrsg in room to check buttocks for skin break down, assist x2 for sit to stand. Pt completes B UE exercises against gravity 1 set 10 reps of 4 exercises. Pt requires skilled instruction to complete with correct technique. After therapy, pt sitting in recliner with call light/phone in reach. Safety measures in place, nrsg aware of pt's position. All needs met. Therapy Code Descriptions/Definitions Functional [place] Measure: 0=Not Assessed/NA 4=Minimal Assistance 1=Total Assistance 5=Supervision or Setup 2=Maximal Assistance 6=Modified [place] 3=Moderate Assistance 7=Complete IndependenceSCALE: Activities may be completed with or without assistive devices. 7-Jyyymrjwuz-hpfigjb completes the activity by him/herself with no assistance from a helper. 5-Set-up or Clean-up Assistance-helper sets up or cleans up; patient completes activity. [place] assists only prior to or following the activity. 4-Supervision or Touching Assistance-helper provides verbal cues and/or touching/steadying and/or contact guard assistance as patient completes activity. Assistance may be provided throughout the activity or intermittently. 3-Partial/Moderate Assistance-helper does LESS THAN HALF the effort. [place] lifts, holds or supports trunk or limbs, but provides less than half the effort. 2-Substantial/Maximal Assistance-helper does MORE THAN HALF the effort. [place] lifts or holds trunk or limbs and provides more than half the effort. 5-Pudikgexz-ehjakd does ALL the effort. Patient does none of the effort to complete the activity. Or, the assistance of 2 or more helpers is required for the patient to complete the activity. If activity was not attempted, code reason: 7-Patient Refused. 9-Not Applicable-not attempted and the patient did not perform the activity before the current illness, exacerbation or injury. 10-Not Attempted due to Environmental Limitations-(lack of equipment, weather restraints, etc.). 88-Not Attempted due to Medical Conditions or Safety Concerns. Toileting Hygiene (QC): 1 Toilet Transfer (QC): 1 OT Integrated Marketing Manager Goals Mcc Goals Time Frame: May 03, 2022 Eating (QC): 5 Oral Hygiene (QC): 5 Toileting Hygiene (QC): 3 Shower/Bathe Self (QC): 3 Upper Body Dressing (QC): 4 Lower Body Dressing (QC): 3 On/Off Footwear (QC): 3 Additional Goals: 1-Demonstrate ADL Tasks, 2-Verbalize Understanding, 3- ImproveStrength/Moy 1=Demonstrate adherence to instructed precautions during ADL tasks. 2=Patient will verbalize/demonstrate understanding of assistive devices/modifications for ADL. 3=Patient will improve strength/tolerance for activity to enable patient to perform ADL's. OT Education/Plan Problem List/Assessment Assessment: Decreased Activ Tolerance, Decreased Safety Aware, Decreased UE Strength, Impaired Cognition, Impaired Coordination, Impaired Funct Balance, Impaired Self-Care Skills, Restricted Funct UE ROM, Visual-Perceptual Deficit Discharge Recommendations Plan/Recommendations: Continue POC Treatment Plan/Plan of Care Patient would benefit from OT for education, treatment and training to promote independence in ADL's, mobility, safety and/or upper extremity function for ADL's. Plan of Care: ADL Retraining, Caregiver Training, Functional Mobility, UE Funct Exercise/Act Treatment Duration: May 03, 2022 Frequency: 5 times per week Estimated Hrs Per Day: .25 hour per day Rehab Potential: Guarded Time/GCodes Start Time: 09:28 Stop Time: 09:53 Total Time Billed (hr/min): 15 Billed Treatment Time 1 visit-ADL 1 (15 min) FERDINAND CULP Apr 15, 2022 10:13
--- NOTE | 2022-04-15 10:41 | Progress Note - Hospitalist ---
Subjective HPI/CC On Admission Date Seen by Provider: Apr 15, 2022 Subjective/Events-last exam Pt is feeling better today but still confused. at bedside and reports plan [facility] to [facility]. Objective Exam Vital Signs Vital Signs Date Time Temp Pulse Resp B/P (MAP) Pulse Ox O2 Delivery O2 Flow Rate FiO2 04/15/22 08:36 37.2 71 17 124/82 (96) 94 Room Air 04/09/22 13:12 21 Capillary Refill : General Appearance: No Apparent Distress, Chronically ill Respiratory: Lungs Clear Cardiovascular: Regular Rate, Rhythm, No Murmur Neurologic/Psychiatric: Alert, Other (oriented to person and place) Results/Procedures Lab Patient resulted labs reviewed. Assessment/Plan Assessment and Plan Assess & Plan/Chief Complaint Debility Dysphagia Fall PT/OT/ST senior manager creative services consulted for placement, [facility] [place] is family's choice Dementia Delirium Reorient as needed Continue home meds Urinary retention Mccormick in place HTN BP well controlled Rectal thickening Incidental finding of rectal wall thickening, consider colonoscopy, recommend outpatient follow up DVT ppx: Lovenox DHRUV, resolved PNA, resolved COVID19, resolved MIGUE ROGERS MD Apr 15, 2022 10:41
[2022-04-15] MEDS: ENOXAPARIN 40 MG/0.4 ML (LOVENOX) SYR SC SCH (15:39)
[2022-04-15] MEDS: TAMSULOSIN 0.4 MG (FLOMAX) CAP PO SCH (17:58)
[2022-04-15 19:31] VITALS: BP 126/79
[2022-04-15] MEDS: DONEPEZIL 10 MG (ARICEPT) TAB PO SCH (19:39)
[2022-04-16] MEDS: guaiFENesin SYRUP 100 MG/5 ML 10 ML (ROBITUSSIN SF) PO SCH ×6 (03:08→23:54)
[2022-04-16 08:06] VITALS: BP 107/64
--- NOTE | 2022-04-16 08:33 | Discharge Inst-Skilled Nursing ---
Discharge Inst-Skilled NF Consult/Follow Up/Orders Follow Up Appt.: With Dr Collado in the next 1-2 weeks. Skilled NF Admit to: [facility] Certification (SNF) I certify that SNF services are required to be given on an inpatient basis because of the above named patient's need for nursing home care on a continuing basis for the conditions(s) for which he/she was receiving inpatient hospital services prior to his/her transfer to the SNF. Senior Living Facility Order: Nursing Services, [place] Consultant-Evaluate & Treat, Physical Therapy-Evaluate & Treat Oxygen Delivery Method: Room Air Discharge Diet: No Restrictions Daily Activity as Tolerated: Yes Resuscitation Status: Do Not Resuscitate New & Resume Previous Orders Migue Reardon Apr 16, 2022 08:33 MIGUE REARDON MD Apr 16, 2022 08:33
[2022-04-16] MEDS ORDERED: LORA10TA7 PO (08:35)
[2022-04-16] MEDS ORDERED: TMSL.4C PO (08:35)
[2022-04-16] MEDS: MEMANTINE 10 MG (NAMENDA) TABLET PO SCH ×2 (09:24→21:57)
[2022-04-16] MEDS: LORATADINE (CLARITIN) 10 MG TAB PO SCH (09:24)
[2022-04-16] MEDS: SENNA W/DOCUSATE (SENOKOT S) TABLET PO SCH ×2 (09:24→19:32)
[2022-04-16] MEDS: DOCUSATE SODIUM 100 MG (COLACE) CAP PO SCH ×2 (09:24→19:32)
--- NOTE | 2022-04-16 09:34 | Physical Therapy Daily Note ---
PT Daily Note-Current Subjective Patient is in bed with alarm activated. Mental Status Patient Orientation: Confused Attachments: Mccormick Catheter Transfers SCALE: Activities may be completed with or without assistive devices. 9-Ndbjabllxw-hgaklzm completes the activity by him/herself with no assistance from a helper. 5-Set-up or Clean-up Assistance-helper sets up or cleans up; patient completes activity. [place] assists only prior to or following the activity. 4-Supervision or Touching Assistance-helper provides verbal cues and/or touching/steadying and/or contact guard assistance as patient completes activity. Assistance may be provided throughout the activity or intermittently. 3-Partial/Moderate Assistance-helper does LESS THAN HALF the effort. [place] lifts, holds or supports trunk or limbs, but provides less than half the effort. 2-Substantial/Maximal Assistance-helper does MORE THAN HALF the effort. [place] lifts or holds trunk or limbs and provides more than half the effort. 3-Ktxtnvaii-slauwb does ALL the effort. Patient does none of the effort to complete the activity. Or, the assistance of 2 or more helpers is required for the patient to complete the activity. If activity was not attempted, code reason: 7-Patient Refused. 9-Not Applicable-not attempted and the patient did not perform the activity before the current illness, exacerbation or injury. 10-Not Attempted due to Environmental Limitations-(lack of equipment, weather restraints, etc.). 88-Not Attempted due to Medical Conditions or Safety Concerns. Lying to Sitting/Side of Bed(Q: 2 Sit to Stand (QC): 2 Chair/Upd-vj-Janvu Xfer(QC): 3 Gait Training Distance: 200' Walk 10 feet (QC): 2 Walk 50 ft with 2 Turns(QC): 2 Walk 150 ft (QC): 2 Gait Assistive Device: FWW PT assist to advance FWW and for body placement in FWW for safe ambulation Assessment Patient incontinent BM requiring dependent assist to cleanse and change patient. Patient is up in recliner with chair alarm activated. PT Keyboarding Teacher Goals Keyboarding Teacher Goals PT Detention Goals Time Frame: May 11, 2022 Roll Left & Right (QC): 3 Sit to Lying (QC): 3 Lying-Sitting on Side/Bed(QC): 3 Sit to Stand (QC): 3 Chair/Qle-yi-Aftjz Xfer(QC): 3 Toilet Transfer (QC): 3 Car Transfer (QC): 3 Does the Patient Walk: Yes Walk 10 feet (QC): 3 Walk 50ft with 2 Turns (QC): 3 Walk 150 ft (QC): 3 Walking 10ft on Uneven Surface: 3 1 Step (curb) (QC): 3 4 Steps (QC): 3 12 Steps (QC): 9 Picking up an Object (QC): 88 Wheel 50 feet with 2 turns (QC: 9 Wheel 150 feet: 9 PT Plan Treatment/Plan Treatment Plan: Continue Plan of Care Treatment Plan: Bed Mobility, Education, Functional Activity Moy, Functional Strength, Gait, Safety, Therapeutic Exercise, Transfers Treatment Duration: May 11, 2022 Frequency: 6 times per week Estimated Hrs Per Day: .25 hour per day Time/GCodes Time In: 846 Time Out: 902 Total Billed Treatment Time: 16 Total Billed Treatment 1 visit FA 16 min MANUEL GARCIA PT Apr 16, 2022 09:34
--- NOTE | 2022-04-16 10:54 | Occupational Ther Daily Note ---
OT Current Status-Daily Note Subjective Pt awake and sitting in recliner. Pt stated he needed to have a bowel movement. present in room. Mental Status/Objective Patient Orientation: Person, Confused, Mumbles Attachments: IV, Telemetry ADL-Treatment Attempted to use FWW for transfer from recliner to [facility], pt unable to sequence sit to stand then retropulsive while in standing. Pt max A to stand and pivot to BS. Pt required multiple verbal and tactile cues to reach back for handles on BSC. Assist x2 to complete toileting. Pt transferred back to recliner, Max A using FWW. Pt required verbal cues to move back in chair and to move feet while standing. Pt sitting in recliner with feet up, call light/phone in reach. Safety measures in place. All needs met in room. Therapy Code Descriptions/Definitions Functional [place] Measure: 0=Not Assessed/NA 4=Minimal Assistance 1=Total Assistance 5=Supervision or Setup 2=Maximal Assistance 6=Modified [place] 3=Moderate Assistance 7=Complete IndependenceSCALE: Activities may be completed with or without assistive devices. 7-Fixfwqizux-wvatrst completes the activity by him/herself with no assistance from a helper. 5-Set-up or Clean-up Assistance-helper sets up or cleans up; patient completes activity. [place] assists only prior to or following the activity. 4-Supervision or Touching Assistance-helper provides verbal cues and/or touching/steadying and/or contact guard assistance as patient completes activity. Assistance may be provided throughout the activity or intermittently. 3-Partial/Moderate Assistance-helper does LESS THAN HALF the effort. [place] lifts, holds or supports trunk or limbs, but provides less than half the effort. 2-Substantial/Maximal Assistance-helper does MORE THAN HALF the effort. [place] lifts or holds trunk or limbs and provides more than half the effort. 4-Fugjazong-rodrmc does ALL the effort. Patient does none of the effort to complete the activity. Or, the assistance of 2 or more helpers is required for the patient to complete the activity. If activity was not attempted, code reason: 7-Patient Refused. 9-Not Applicable-not attempted and the patient did not perform the activity before the current illness, exacerbation or injury. 10-Not Attempted due to Environmental Limitations-(lack of equipment, weather restraints, etc.). 88-Not Attempted due to Medical Conditions or Safety Concerns. Toileting Hygiene (QC): 1 Toilet Transfer (QC): 1 OT Branch Lending Manager Goals Branch Lending Manager Goals Time Frame: May 03, 2022 Eating (QC): 5 Oral Hygiene (QC): 5 Toileting Hygiene (QC): 3 Shower/Bathe Self (QC): 3 Upper Body Dressing (QC): 4 Lower Body Dressing (QC): 3 On/Off Footwear (QC): 3 Additional Goals: 1-Demonstrate ADL Tasks, 2-Verbalize Understanding, 3- ImproveStrength/Moy 1=Demonstrate adherence to instructed precautions during ADL tasks. 2=Patient will verbalize/demonstrate understanding of assistive devices/modifications for ADL. 3=Patient will improve strength/tolerance for activity to enable patient to perform ADL's. OT Education/Plan Problem List/Assessment Assessment: Decreased Activ Tolerance, Decreased Safety Aware, Decreased UE Strength, Impaired Cognition, Impaired Coordination, Impaired Funct Balance Discharge Recommendations Plan/Recommendations: Continue POC Treatment Plan/Plan of Care Patient would benefit from OT for education, treatment and training to promote independence in ADL's, mobility, safety and/or upper extremity function for ADL's. Plan of Care: ADL Retraining, Caregiver Training, Functional Mobility, UE Funct Exercise/Act Treatment Duration: May 03, 2022 Frequency: 5 times per week Estimated Hrs Per Day: .25 hour per day Rehab Potential: Guarded Time/GCodes Start Time: 10:31 Stop Time: 10:47 Total Time Billed (hr/min): 16 Billed Treatment Time 1 visit-ADL 1 (16 min) FERDINAND CULP Apr 16, 2022 10:54
[2022-04-16] MEDS: ENOXAPARIN 40 MG/0.4 ML (LOVENOX) SYR SC SCH (14:10)
[2022-04-16] MEDS: TAMSULOSIN 0.4 MG (FLOMAX) CAP PO SCH (18:25)
[2022-04-16 19:35] VITALS: BP 120/79
[2022-04-16] MEDS: DONEPEZIL 10 MG (ARICEPT) TAB PO SCH (21:56)
[2022-04-17] MEDS: guaiFENesin SYRUP 100 MG/5 ML 10 ML (ROBITUSSIN SF) PO SCH ×6 (03:35→22:06)
[2022-04-17] MEDS: LORATADINE (CLARITIN) 10 MG TAB PO SCH (08:35)
[2022-04-17] MEDS: MEMANTINE 10 MG (NAMENDA) TABLET PO SCH ×2 (08:35→21:01)
[2022-04-17] MEDS: DOCUSATE SODIUM 100 MG (COLACE) CAP PO SCH ×2 (08:35→21:00)
[2022-04-17] MEDS: SENNA W/DOCUSATE (SENOKOT S) TABLET PO SCH ×2 (08:35→21:00)
[2022-04-17 08:45] VITALS: BP 119/61
--- NOTE | 2022-04-17 10:53 | Physical Therapy Daily Note ---
PT Daily Note-Current Subjective Patient in bed pre tx, agrees to PT, voices no complaints of pain. Patient has had a BM in bed, rehab therapy manager assists with cleaning. Appearance Patient sitting on shower bench post tx with nurse tech for bathing. Mental Status Patient Orientation: Person, Confused Attachments: Mccormick Catheter Transfers SCALE: Activities may be completed with or without assistive devices. 0-Dzqjefaxpx-uidfizj completes the activity by him/herself with no assistance from a helper. 5-Set-up or Clean-up Assistance-helper sets up or cleans up; patient completes activity. [place] assists only prior to or following the activity. 4-Supervision or Touching Assistance-helper provides verbal cues and/or touching/steadying and/or contact guard assistance as patient completes activity. Assistance may be provided throughout the activity or intermittently. 3-Partial/Moderate Assistance-helper does LESS THAN HALF the effort. [place] lifts, holds or supports trunk or limbs, but provides less than half the effort. 2-Substantial/Maximal Assistance-helper does MORE THAN HALF the effort. [place] lifts or holds trunk or limbs and provides more than half the effort. 7-Trhzcyrkh-chyshf does ALL the effort. Patient does none of the effort to c omplete the activity. Or, the assistance of 2 or more helpers is required for the patient to complete the activity. If activity was not attempted, code reason: 7-Patient Refused. 9-Not Applicable-not attempted and the patient did not perform the activity before the current illness, exacerbation or injury. 10-Not Attempted due to Environmental Limitations-(lack of equipment, weather restraints, etc.). 88-Not Attempted due to Medical Conditions or Safety Concerns. Roll Left & Right (QC): 1 Lying to Sitting/Side of Bed(Q: 3 Sit to Stand (QC): 3 Chair/Zje-db-Pekqi Xfer(QC): 3 Patient is dependent for rolling for cleaning BM, after laying back down and brief is put on partially and is pulled up all the way after standing. Mod assist for supine to sit and sit to stand. Gait Training Distance: 150' Walk 10 feet (QC): 3 Walk 50 ft with 2 Turns(QC): 3 Walk 150 ft (QC): 3 Gait Assistive Device: FWW mod assist, patient needs assist with balance and assist guiding walker, cues to take big steps Treatments rolling, transfers, ambulation Assessment Current Status: Fair Progress slowly improving functional mobility but still requires a lot of assist PT Rn Infusion Goals Rn Infusion Goals PT Group Home Goals Time Frame: May 11, 2022 Roll Left & Right (QC): 3 Sit to Lying (QC): 3 Lying-Sitting on Side/Bed(QC): 3 Sit to Stand (QC): 3 Chair/Ugo-mt-Bwzxz Xfer(QC): 3 Toilet Transfer (QC): 3 Car Transfer (QC): 3 Does the Patient Walk: Yes Walk 10 feet (QC): 3 Walk 50ft with 2 Turns (QC): 3 Walk 150 ft (QC): 3 Walking 10ft on Uneven Surface: 3 1 Step (curb) (QC): 3 4 Steps (QC): 3 12 Steps (QC): 9 Picking up an Object (QC): 88 Wheel 50 feet with 2 turns (QC: 9 Wheel 150 feet: 9 PT Plan Problem List Problem List: Activity Tolerance, Functional Strength, Safety, Balance, Gait, Transfer, Bed Mobility, ROM Treatment/Plan Treatment Plan: Continue Plan of Care Treatment Plan: Bed Mobility, Education, Functional Activity Moy, Functional Strength, Gait, Safety, Therapeutic Exercise, Transfers Treatment Duration: May 11, 2022 Frequency: 6 times per week Estimated Hrs Per Day: .25 hour per day Safety Risks/Education Patient Education: Gait Training, Transfer Techniques, Correct Positioning, Safety Issues Teaching Recipient: Patient Teaching Methods: Demonstration, Discussion Response to Teaching: Reinforcement Needed Time/GCodes Time In: 1025 Time Out: 1040 Total Billed Treatment Time: 15 Total Billed Treatment 1 visit FA JOSE JI PT Apr 17, 2022 10:53
--- NOTE | 2022-04-17 14:18 | Occupational Ther Daily Note ---
OT Current Status-Daily Note Subjective Pt in bed, at bedside. agreeable to OT Tx. Mental Status/Objective Patient Orientation: Person, Confused ADL-Treatment Therapy Code Descriptions/Definitions Functional [place] Measure: 0=Not Assessed/NA 4=Minimal Assistance 1=Total Assistance 5=Supervision or Setup 2=Maximal Assistance 6=Modified [place] 3=Moderate Assistance 7=Complete IndependenceSCALE: Activities may be completed with or without assistive devices. 2-Phvecqcweu-ugncggs completes the activity by him/herself with no assistance from a helper. 5-Set-up or Clean-up Assistance-helper sets up or cleans up; patient completes activity. [place] assists only prior to or following the activity. 4-Supervision or Touching Assistance-helper provides verbal cues and/or touching/steadying and/or contact guard assistance as patient completes activity. Assistance may be provided throughout the activity or intermittently. 3-Partial/Moderate Assistance-helper does LESS THAN HALF the effort. [place] lifts, holds or supports trunk or limbs, but provides less than half the effort. 2-Substantial/Maximal Assistance-helper does MORE THAN HALF the effort. [place] lifts or holds trunk or limbs and provides more than half the effort. 1-Lvvalwdiu-utxfar does ALL the effort. Patient does none of the effort to complete the activity. Or, the assistance of 2 or more helpers is required for the patient to complete the activity. If activity was not attempted, code reason: 7-Patient Refused. 9-Not Applicable-not attempted and the patient did not perform the activity before the current illness, exacerbation or injury. 10-Not Attempted due to Environmental Limitations-(lack of equipment, weather restraints, etc.). 88-Not Attempted due to Medical Conditions or Safety Concerns. Eating (QC): 3 (Min A with lunch) Oral Hygiene (QC): 4 (SBA with VCs for sequencing at bed level.) Shower/Bathe Self (QC): 2 (per nursing report.) Upper Body Dressing (QC): 10 Lower Body Dressing (QC): 1 (Per PT report) On/Off Footwear: 1 (Per clincial judgment.) Toileting Hygiene (QC): 1 (Per PT report) Other Treatment Pt in bed, finishing lunch upon OT arrival. Pt's indicates pt fed himself the majority of his lunch today, but she helped a little bit. Pt agreeable to completing oral care, able to complete with SBA with VCs for sequencing. Per nursing report, pt took a shower this morning, and his had assisted him with shaving today. Post tx, pt in bed, call light in reach and all needs met. Education OT Patient Education: Correct positioning, Energy conservation, Modified ADL techniques, Progress toward Goal/Update tx plan, Purpose of tx/functional acti vities, Rehab process Teaching Recipient: Patient Teaching Methods: Discussion Response to Teaching: Verbalize Understanding OT Mcc Goals Mcc Goals Time Frame: May 03, 2022 Eating (QC): 5 Oral Hygiene (QC): 5 Toileting Hygiene (QC): 3 Shower/Bathe Self (QC): 3 Upper Body Dressing (QC): 4 Lower Body Dressing (QC): 3 On/Off Footwear (QC): 3 Additional Goals: 1-Demonstrate ADL Tasks, 2-Verbalize Understanding, 3- ImproveStrength/Moy 1=Demonstrate adherence to instructed precautions during ADL tasks. 2=Patient will verbalize/demonstrate understanding of assistive devices/modifications for ADL. 3=Patient will improve strength/tolerance for activity to enable patient to perform ADL's. OT Education/Plan Problem List/Assessment Assessment: Decreased Activ Tolerance, Decreased Safety Aware, Decreased UE Strength, Impaired Funct Balance, Impaired I ADL's, Impaired Self-Care Skills Discharge Recommendations Plan/Recommendations: Continue POC Treatment Plan/Plan of Care Patient would benefit from OT for education, treatment and training to promote independence in ADL's, mobility, safety and/or upper extremity function for ADL's. Plan of Care: ADL Retraining, Caregiver Training, Functional Mobility, UE Funct Exercise/Act Treatment Duration: May 03, 2022 Frequency: 5 times per week Estimated Hrs Per Day: .25 hour per day Rehab Potential: Guarded Time/GCodes Start Time: 13:55 Stop Time: 14:10 Total Time Billed (hr/min): 15 Billed Treatment Time 1, ADL ARIANA TEIXEIRA OT Apr 17, 2022 14:18
[2022-04-17] MEDS: ENOXAPARIN 40 MG/0.4 ML (LOVENOX) SYR SC SCH (15:50)
[2022-04-17] MEDS: TAMSULOSIN 0.4 MG (FLOMAX) CAP PO SCH (17:07)
[2022-04-17 20:26] VITALS: BP 110/55
[2022-04-17] MEDS: DONEPEZIL 10 MG (ARICEPT) TAB PO SCH (21:01)
[2022-04-18] MEDS: guaiFENesin SYRUP 100 MG/5 ML 10 ML (ROBITUSSIN SF) PO SCH ×3 (03:00→11:26)
--- NOTE | 2022-04-18 07:30 | Therapy Team Discharge Summary ---
Therapy Discharge Summary Discharge Recommendations Date of Discharge April 18, 2022 Therapy D/C Recommendations: Halfway (TCU/LA) Physical Therapy Patient dismissing to [place] on this date for continued skilled PT to address functional strength and mobility. Patient has improved from dependent assist with all mobility with inability to ambulate to max to mod assist with gross motor skills and ambulating 150' with FWW mod assist. Patient will benefit from continued skilled therapy. Roll Left to Right (QC): 2 Sit to Lying (QC): 2 Lying to Sitting/Side of Bed(Q: 3 Sit to Stand (QC): 3 Chair/Rmb-bk-Nmbas Xfer(QC): 3 Toilet Transfer (QC): 2 Car Transfer (QC): 2 (clinical judgement based on LOF with gross motor skills.) Does the Patient Walk: No and Walking Goal IS indicated Walk 10 feet (QC): 3 Walk 50 ft with 2 Turns(QC): 3 Walk 150 ft (QC): 3 Walking 10ft on uneven surface: 3 (based on clinical judgement) Gait Assistive Device: FWW Wheel 50 ft with 2 turns (QC): 9 Wheel 150 ft (QC): 9 1 Step (curb) (QC): 88 4 Steps (QC): 88 12 Steps (QC): 9 Walking Assistive Device: Walker Balance Sitting Static: Poor Balance Sitting Dynamic: Poor Balance-Standing Static: Poor Picking up an Object (QC): 88 (not safe to perform due to dementia/confusion) Occupational Therapy Decreased Activ Tolerance, Decreased Safety Aware, Decreased UE Strength, Impaired Funct Balance, Impaired I ADL's, Impaired Self-Care Skills Eating (QC): 3 (Min A with lunch) Oral Hygiene (QC): 4 (SBA with VCs for sequencing at bed level.) Shower/Bathe Self (QC): 2 (per nursing report.) Upper Body Dressing (QC): 10 Lower Body Dressing (QC): 1 (Per PT report) On/Off Footwear (QC): 1 (Per clincial judgment.) Toileting Hygiene (QC): 1 (Per PT report) PT Marketing Support Manager Goals Marketing Support Manager Goals PT Marketing Support Manager Goals Time Frame: May 11, 2022 Roll Left to Right (QC): 3 Sit to Lying (QC): 3 Lying-Sitting on Side/Bed(QC): 3 Sit to Stand (QC): 3 Chair/Ape-yc-Lrfnd Xfer(QC): 3 Car Transfer (QC): 3 Does the Patient Walk: Yes Walk 10 feet (QC): 3 Walk 10ft-Uneven Surface(QC): 3 Walk 50ft with 2 Turns (QC): 3 Walk 150 ft (QC): 3 Wheel 50 feet with 2 turns (QC: 9 1 Step (curb) (QC): 3 4 Steps (QC): 3 12 Steps (QC): 9 Picking up an Object (QC): 88 OT Marketing Support Manager Goals Marketing Support Manager Goals Time Frame: May 03, 2022 Eating (QC): 5 Oral Hygiene (QC): 5 Shower/Bathe Self (QC): 3 Upper Body Dressing (QC): 4 Lower Body Dressing (QC): 3 On/Off Footwear (QC): 3 Toileting Hygiene (QC): 3 Toilet/Commode Transfer (QC): 3 Additional Goals: 1-Demonstrate ADL Tasks, 2-Verbalize Understanding, 3-Improv eStrength/Moy 1=Demonstrate adherence to instructed precautions during ADL tasks. 2=Patient will verbalize/demonstrate understanding of assistive devices/modifications for ADL. 3=Patient will improve strength/tolerance for activity to enable patient to p erform ADL's. Speech Marketing Support Manager Goals Senior Living Goals 1. The patient will tolerate the least restrictive diet consistency without s/s of suspected aspiration. Time Frame: One Week. MANUEL GARCIA PT Apr 18, 2022 07:30
[2022-04-18 08:04] VITALS: BP 140/65
[2022-04-18] MEDS: MEMANTINE 10 MG (NAMENDA) TABLET PO SCH (08:17)
[2022-04-18] MEDS: LORATADINE (CLARITIN) 10 MG TAB PO SCH (08:17)
[2022-04-18] MEDS: DOCUSATE SODIUM 100 MG (COLACE) CAP PO SCH (08:17)
[2022-04-18] MEDS: SENNA W/DOCUSATE (SENOKOT S) TABLET PO SCH (08:18)
--- NOTE | 2022-04-18 08:51 | Discharge Summary ---
Diagnosis/Chief Complaint Date of Admission Apr 09, 2022 at 12:18 Date of Discharge Discharge Date: Apr 16, 2022 Primary Care Stevie Collado DO Discharge Diagnosis (1) Fall Status: Acute (2) Debility Status: Acute (3) Dementia Status: Chronic (4) Delirium Status: Acute (5) Urinary retention Status: Acute (6) Colonic thickening Status: Acute Discharge Summary Discharge Physical Exam Allergies: Coded Allergies: oseltamivir (Verified Allergy, Intermediate, 10/15/21) DELIRIUM Vitals & I&Os Vital Signs Date Time Temp Pulse Resp B/P (MAP) Pulse Ox O2 Delivery O2 Flow Rate FiO2 04/18/22 08:04 37.1 71 18 140/65 (90) 97 Room Air General Appearance: No Apparent Distress Respiratory: Lungs Clear Cardiovascular: Regular Rate, Rhythm, No Murmur Neurologic/Psychiatric: Alert, Oriented x3 Hospital Course Patient was admitted to swing bed following admission from debility due to COVID-19. He was seen by physical therapy and Occupational Therapy for continued strengthening. He was able to be discharged to [facility] once his COVID isolation was complete and improved condition. Labs (last 24 hrs) Patient resulted labs reviewed. Discussion & Recommendations Discharge Planning: >30 minutes discharge planning Discharge Home Medications: Active Scripts Active Loratadine 10 Mg Tablet 10 Mg PO DAILY Flomax (Tamsulosin HCl) 0.4 Mg Cap 0.4 Mg PO DAILY@1800 Reported Cyanocobalamin Injection (Cyanocobalamin) 1,000 Mcg/Ml Inj 1,000 Mcg IM MONTHLY Meloxicam 7.5 Mg Tablet 7.5 Mg PO DAILY PRN Memantine HCl 10 Mg Tablet 10 Mg PO BID Amlodipine Besylate 10 Mg Tablet 10 Mg PO DAILY Donepezil HCl 10 Mg Tablet 10 Mg PO HS Lisinopril 20 Mg Tablet 20 Mg PO DAILY Instructions to patient/family Please see electronic discharge instructions given to patient. MIGUE ROGERS MD Apr 18, 2022 08:51
--- NOTE | 2022-04-18 09:08 | Speech Therapy Progress Note ---
Therapy Progress Note ST contacted by Rehabilitation staff stating the physician is requesting the patient be seen prior to discharge at noon. The clinician attempted contact with the floor at 0905 to discuss schedule and update the patient's RN with speech pathology's availability. No answer was received with three attempts. The clinician is scheduled with patients until 1130. The clinician will attempt the patient's visit at 1130. GRACE TREVIÑO Apr 18, 2022 09:08
--- NOTE | 2022-04-18 11:57 | Speech Therapy Daily Note ---
Speech Daily Progress Note Subjective Date Seen by Provider: Apr 18, 2022 Time Seen by Provider: 11:30 The patient was seated upright in a recliner, awake and alert upon entrance to his room by the clinician. The patient's spouse was present at bedside. The patient greeted the clinician appropriately and was agreeable to participation in the dysphagia treatment session. Objective The patient consumed multiple straw drinks of thin liquid (single and consecutive), teaspoons of puree, and two saltine crackers. The patient did not demonstrate s/s of suspected aspiration with any trial provided and the patient's vocal quality remained clear. The patient was able to self-feed each item, independently. Recommendations: - Regular consistency diet with thin liquids, as tolerated. - Fully upright and alert for P.O. intake. - Small, single bites and sips. - Monitor for s/s of suspected aspiration with P.O. intake. If demonstrated, contact speech pathology. The results and recommendations were discussed with the patient, the patient's spouse, and the patient's RN immediately following completion. The patient denied questions or concerns for the clinician at this time. Assessment Assessment Current Status: Good Progress Treatment Plan Discontinue ST Speech Short Term Goals Short Term Goals Short Term Goals 1. The patient's family and staff will follow safe swallowing protocols with 90% accuracy, independently. Time Frame-STG: Three Days. Speech Casing Material Weigher Goals Casing Material Weigher Goals 1. The patient will tolerate the least restrictive diet consistency without s/s of suspected aspiration. Time Frame: One Week. Speech-Plan Treatment Plan Speech Therapy Treatment Plan: Discontinue ST Treatment Duration: Apr 17, 2022 Frequency: 2 times per week Estimated Hrs Per Day: .25 hour per day Rehab Potential: Guarded Safety Risks/Education Teaching Recipient: Patient, Significant Other Teaching Methods: Discussion Response to Teaching: Verbalize Understanding Education Topics Provided: Results, Recommendations Time Speech Therapy Time In: 11:30 Speech Therapy Time Out: 11:50 Total Billed Time: 20 Billed Treatment Time 1LATOSHA ELIZABETH ST Apr 18, 2022 11:57
[2022-04-18 12:10] VITALS: BP 140/65
--- NOTE | 2022-04-18 14:55 | Therapy Team Discharge Summary ---
Therapy Discharge Summary Discharge Recommendations Date of Discharge Apr 18, 2022 at 12:20 Therapy D/C Recommendations: Retirement (TCU/NH) Physical Therapy Roll Left to Right (QC): 2 Sit to Lying (QC): 2 Lying to Sitting/Side of Bed(Q: 3 Sit to Stand (QC): 3 Chair/Gbp-gf-Opjui Xfer(QC): 3 Toilet Transfer (QC): 2 Car Transfer (QC): 2 (clinical judgement based on LOF with gross motor skills.) Does the Patient Walk: No and Walking Goal IS indicated Walk 10 feet (QC): 3 Walk 50 ft with 2 Turns(QC): 3 Walk 150 ft (QC): 3 Walking 10ft on uneven surface: 3 (based on clinical judgement) Gait Assistive Device: FWW Wheel 50 ft with 2 turns (QC): 9 Wheel 150 ft (QC): 9 1 Step (curb) (QC): 88 4 Steps (QC): 88 12 Steps (QC): 9 Walking Assistive Device: Walker Balance Sitting Static: Poor Balance Sitting Dynamic: Poor Balance-Standing Static: Poor Picking up an Object (QC): 88 (not safe to perform due to dementia/confusion) Occupational Therapy Pt admitted to [facility] with COVID debility. At [facility], pt was independent with ADLs and functional mobility without AD. Upon initial evaluation, pt required moderate assistance with eating and oral care, max A UE dresing, and total assist showering, LE dressing, footwear and toileting. OT tx focused on increasing BUE strength and activity tolerance, and increasing safety and independence with ADLs and functional mobility. While pt made some functional progress, he did not attain any goals. Pt discharged to SNF, d/c from OT at this time. Decreased Activ Tolerance, Decreased Safety Aware, Decreased UE Strength, Impaired Funct Balance, Impaired I ADL's, Impaired Self-Care Skills Eating (QC): 3 (Min A with lunch) Oral Hygiene (QC): 4 (SBA with VCs for sequencing at bed level.) Shower/Bathe Self (QC): 2 (per nursing report.) Upper Body Dressing (QC): 10 Lower Body Dressing (QC): 1 (Per PT report) On/Off Footwear (QC): 1 (Per clincial judgment.) Toileting Hygiene (QC): 1 (Per PT report) PT Assisted Goals Living Supervisor Goals PT Living Supervisor Goals Time Frame: May 11, 2022 Roll Left to Right (QC): 3 Sit to Lying (QC): 3 Lying-Sitting on Side/Bed(QC): 3 Sit to Stand (QC): 3 Chair/Pkm-bg-Yrqqt Xfer(QC): 3 Car Transfer (QC): 3 Does the Patient Walk: Yes Walk 10 feet (QC): 3 Walk 10ft-Uneven Surface(QC): 3 Walk 50ft with 2 Turns (QC): 3 Walk 150 ft (QC): 3 Wheel 50 feet with 2 turns (QC: 9 1 Step (curb) (QC): 3 4 Steps (QC): 3 12 Steps (QC): 9 Picking up an Object (QC): 88 OT Assisted Goals Living Supervisor Goals Time Frame: May 03, 2022 Eating (QC): 5 (not met) Oral Hygiene (QC): 5 (not met) Shower/Bathe Self (QC): 3 (not met) Upper Body Dressing (QC): 4 (not met) Lower Body Dressing (QC): 3 (not met) On/Off Footwear (QC): 3 (not met) Toileting Hygiene (QC): 3 (not met) Toilet/Commode Transfer (QC): 3 Additional Goals: 1-Demonstrate ADL Tasks, 2-Verbalize Understanding, 3- ImproveStrength/Moy 1=Demonstrate adherence to instructed precautions during ADL tasks. 2=Patient will verbalize/demonstrate understanding of assistive devices/modifications for ADL. 3=Patient will improve strength/tolerance for activity to enable patient to perform ADL's. Speech Assisted Goals Assisted Goals 1. The patient will tolerate the least restrictive diet consistency without s/s of suspected aspiration. Time Frame: One Week. ARIANA TEIXEIRA OT Apr 18, 2022 14:55
== END 2022-04-18 12:20 | DRG 948 ==
LOC: 4TH 12:18
PROVIDERS: ADMIT Internal Medicine; ATTEND Family Medicine
PROC: 8E0ZXY6 Isolation (ICD-10-PCS; principal; 2022-04-09)
DX: R53.81 Other malaise (principal); F05 Delirium due to known physiological condition; R53.1 Weakness; Z86.16 Personal history of COVID-19; R13.10 Dysphagia, unspecified; F03.90 Unspecified dementia, unspecified severity, without behavioral disturbance, psychotic disturbance, mood disturbance, and anxiety; R33.9 Retention of urine, unspecified; Z66 Do not resuscitate; I10 Essential (primary) hypertension; K62.89 Other specified diseases of anus and rectum; Z91.81 History of falling
CPT/HCPCS: 36415; 70450; 71260; 72125; 74177; 80048; 83735; 84132; 94760

== ENCOUNTER → 2022-06-13 | Outpatient (CLI) | payer MEDICARE, OTHER ==
[~2022-06-13] MED LIST changes: +TMSL.4C PO
--- NOTE | 2022-06-13 15:39 | Diagnostic Imaging Report ---
INDICATION: Pain after fall. 2 views were obtained. FINDINGS: There are moderate osteoarthritic changes in the right hip. This includes joint space narrowing, subchondral sclerosis and marginal osteophytosis. No fracture or dislocation. Soft tissues are unremarkable. IMPRESSION: Moderate osteoarthritic changes in the right hip however no acute fracture or dislocation. Dictated by: Dictated on workstation # [id number]
== END ==
LOC: RAD 11:50
PROVIDERS: ATTEND Family Medicine
DX: M16.11 Unilateral primary osteoarthritis, right hip (principal); W19.XXXA Unspecified fall, initial encounter
CPT/HCPCS: 73502